=== PATIENT | male | born 1955 | race Hispanic/Latino ===

== ENCOUNTER 2016-10-27 11:43 | Inpatient (IN) | payer MEDICARE, BC ==
[2016-10-27 12:04] VITALS: BMI 23.5
--- NOTE | 2016-10-27 12:08 | ED PDOC ---
Arrival/HPI <Rell Don - Last Filed: 10/27/16 15:57> - General Historian: Patient <RUBIA REDDY - Last Filed: 10/27/16 17:25> - General Chief Complaint: Shortness Of Breath Time Seen by Provider: 10/27/16 11:47 - History of Present Illness Narrative History of Present Illness (Text): 10/27/16 12:05 Mr. Pierce is a 61 year old male with pmh significant for Liver transplant in 2002 for cirrhosis 2/2 most likely to [place] who presents to the emergency department complaining of shortness of breath. He reports his symptoms began after he had a liver biopsy last Wednesday. Since then he experiences shortness of breath with walking up stairs or with walking short distances. He denies chest pain, fever, nausea, vomiting, or change in bowels. He does indicate his shortness of breath occurs when he lays flat and now has to sleep with two pillows. He reports a dry cough and mild swelling in his lower extremities. He is prescribed lasix 10mg for which is compliant with. (RUBIA REDDY) Past Medical History - Provider Review Nursing Documentation Reviewed: Yes <Rell Don - Last Filed: 10/27/16 15:57> - Infectious Disease Hx of Infectious Diseases: None - Cardiac Hx Congestive Heart Failure: Yes Hx Hypertension: Yes - Pulmonary Hx Respiratory Disorders: No - Neurological Hx Neurological Disorder: No - HEENT Hx HEENT Disorder: No - Renal Hx Kidney Stones: Yes - Endocrine/Metabolic Hx Endocrine Disorders: No - Hematological/Oncological Hx Blood Disorders: No - Integumentary Hx Dermatological Disorder: No - Musculoskeletal/Rheumatological Hx Musculoskeletal Disorders: No Hx Falls: No - Gastrointestinal Hx Liver Failure: Yes (transplant 2002) - Psychiatric Hx Psychophysiologic Disorder: No Hx Substance Use: No - Surgical History Hx Liver Transplant: Yes (2002) Other/Comment: plastic sx after accident in the s - Anesthesia Hx Anesthesia Reactions: No Hx Malignant Hyperthermia: No <RUBIA REDDY - Last Filed: 10/27/16 17:25> Family/Social History - Physician Review Nursing Documentation Reviewed: Yes Family/Social History: No Known Family HX <Rell Don - Last Filed: 10/27/16 15:57> Smoking Status: Never Smoked Hx Alcohol Use: No Hx Substance Use: No <RUBIA REDDY - Last Filed: 10/27/16 17:25> Allergies/Home Meds <Rell Don - Last Filed: 10/27/16 15:57> <RUBIA REDDY - Last Filed: 10/27/16 17:25> Allergies/Adverse Reactions: Allergies milk Adverse Reaction (Unknown, Verified 10/27/16 12:16) VOMITING Home Medications: Home Meds Medication Instructions Recorded Confirmed Ferrous Sulfate 65 mg PO DAILY 07/04/15 10/27/16 Magnesium Oxide [Magnesium] 400 mg PO DAILY 07/04/15 10/27/16 Folic Acid 1 mg PO DAILY 07/15/15 10/27/16 Famotidine [Heartburn Prevention] 20 mg PO BID 05/27/16 10/27/16 Mycophenolate Mofetil [Cellcept] 1,250 mg PO BID 05/27/16 10/27/16 Carvedilol [Coreg] 12.5 mg PO BID 09/17/16 10/27/16 Furosemide [Lasix] 20 mg PO DAILY 09/17/16 10/27/16 amLODIPine [Norvasc] 5 mg PO BID 09/17/16 10/27/16 Cyclosporine, Modified [Neoral] 25 mg PO BID 10/27/16 10/27/16 Sodium Bicarbonate Tab 650 mg PO TID 10/27/16 10/27/16 Review of Systems - Physician Review All systems were reviewed & negative as marked: Yes - Review of Systems Constitutional: absent: Fatigue, Fevers Respiratory: SOB, Cough (dry) Cardiovascular: absent: Chest Pain, Palpitations Gastrointestinal: absent: Abdominal Pain, Stool Changes <RUBIA REDDY - Last Filed: 10/27/16 17:25> Physical Exam - Systems Exam Skin: Present: Warm, Dry, Normal Color. No: Rashes <Rell Don - Last Filed: 10/27/16 15:57> Vital Signs Reviewed: Yes Temperature: Afebrile Blood Pressure: Normal Pulse: Regular Respiratory Rate: Normal Appearance: Positive for: Well-Appearing Pain Distress: None Mental Status: Positive for: Alert and Oriented X 3 - Systems Exam Head: Present: Atraumatic, Normocephalic Pupils: Present: PERRL Extroacular Muscles: Present: EOMI Conjunctiva: Present: Normal Respiratory/Chest: Present: Clear to Auscultation, Good Air Exchange. No: Respiratory Distress, Accessory Muscle Use Cardiovascular: Present: Regular Rate and Rhythm, Normal S1, S2. No: Murmurs Abdomen: Present: Normal Bowel Sounds. No: Tenderness, Distention, Peritoneal Signs Upper Extremity: Present: Normal Inspection. No: Cyanosis, Edema Lower Extremity: Present: Edema (+1 bilateral mid tibia ), NORMAL PULSES, Normal ROM Neurological: Present: GCS=15, CN II-XII Intact, Speech Normal Psychiatric: Present: Alert, Oriented x 3, Normal Insight, Normal Concentration <RUBIA REDDY - Last Filed: 10/27/16 17:25> Vital Signs Pulse Resp BP Pulse Ox 10/27/16 13:43 137/71 10/27/16 12:12 56 L 16 135/75 95 Medical Decision Making - Lab Interpretations I have reviewed the lab results: Yes - RAD Interpretation [employer] Shipper: Radiologist <Rell Don - Last Filed: 10/27/16 15:57> - Lab Interpretations I have reviewed the lab results: Yes - RAD Interpretation [employer] Shipper: Radiologist - EKG Interpretation Interpreted by ED Physician: Yes Type: 12 lead EKG <RUBIA REDDY - Last Filed: 10/27/16 17:25> ED Course and Treatment: 10/27/16 12:13 Seen and examined with the resident. Our history and physical exam reveals a gentleman status post liver transplant in 2002 complaining of a several day history of shortness of breath. He has a nonproductive cough. No chest pain. No fever or chills. There is trace chronic bilateral lower extremity edema. Lung sounds are clear. 10/27/16 12:14 EKG shows normal sinus rhythm rate approximately 70 with poor R waves and inverted lateral T waves with a left bundle branch block similar to EKG of 05/2710/27/16 15:38 Elevated d-dimer and elevated creatinine, therefore a CTA was not done and rather a VQ scan was ordered. VQ scan is read by the radiologist shows low probability for pulmonary embolus. Discussed with Dr. Elliott who will admit to a telemetry bed. (Rell Don) 10/27/16 12:27 Impression: Mr. Pierce is a 61 year old male with pmh significant for Liver transplant in 2002 who complains of shortness of breath for the past five days. Differential Diagnosis included but are not limited to: - congestive hear failure - fluid accumulation on lungs - pulmonary embolus - ACS Plan: - CBC, CMP, BNP, D-Dimer. PT, PTT, Troponin - Chest x-ray, V/Q scan - Reassess and disposition Progress Notes: 10/27/16 12:33 Chest x ray shows signs of cardiomegaly, bilateral infiltrates and effusions present 10/27/16 15:44 Elevated D-Dimer with V/Q perfusion scan with report indicating low probability for PE (RUBIA REDDY) - Lab Interpretations Lab Results: 10/27/16 12:50 10/27/16 12:50 Lab Results 10/27/16 12:50: WBC 4.1 L, RBC 3.49 L, Hgb 10.8 L, Hct 31.5 L, MCV 90.3, MCH 30.9, MCHC 34.3, RDW 14.4, Plt Count 160, MPV 8.5, Gran % 52.4, Lymph % (Auto) 32.4, Real % (Auto) 11.8 H, Eos % (Auto) 2.9, Baso % (Auto) 0.5, Gran # 2.14, Lymph # 1.3, Real # 0.5, Eos # 0.1, Baso # 0.02 10/27/16 12:50: Sodium 141, Potassium 4.9, Chloride 108 H, Carbon Dioxide 20 L, Anion Gap 18, BUN 30 H, Creatinine 2.3 H, Est GFR ( Amer) 35, Est GFR ( Non-Af Amer) 29, Random Glucose 90, Calcium 9.6, Total Bilirubin 2.2 H, AST 54, ALT 32, Alkaline Phosphatase 764 H, Troponin I 0.02 D, NT-Pro-B Natriuret Pep 2870 H, Total Protein 7.8, Albumin 4.2, Globulin 3.6, Albumin/Globulin Ratio 1.2 10/27/16 12:50: PT 11.9 H, INR 1.10 H, APTT 32.0 H, D-Dimer, Quantitative 3.43 H - RAD Interpretation Radiology Orders: 10/27/16 12:08 CHEST PORTABLE [RAD] Stat 10/27/16 13:23 LUNG PERF & VENT SCAN [NM] Stat - Medication Orders Current Medication Orders: Discontinued Medications Furosemide (Lasix) 40 mg IVP ONCE ONE Stop: 10/27/16 13:25 Last Admin: 10/27/16 13:43 Dose: 40 mg - Scribe Statement The provider has reviewed the documentation as recorded by the Scribe <Rell Don - Last Filed: 10/27/16 15:57> - PA / CLASS B DRIVER / Resident Statement / has reviewed & agrees with the documentation as recorded. / has examined the patient and agrees with the treatment plan. <RUBIA REDDY - Last Filed: 10/27/16 17:25> - Scribe Statement 10/27/2016 Krista Nova Provider Scribe Attestation: All medical record entries made by the Scribe were at my direction and personally dictated by me. I have reviewed the chart and agree that the record accurately reflects my personal performance of the history, physical exam, medical decision making, and the department course for this patient. I have also personally directed, reviewed, and agree with the discharge instructions and disposition. (Rell Don) Disposition/Present on Arrival - Present on Arrival Any Indicators Present on Arrival: No History of DVT/PE: No History of Uncontrolled Diabetes: No Urinary Catheter: No History of Decub. Ulcer: No - Disposition Have Diagnosis and Disposition been Completed?: Yes Disposition Time: 15:41 Patient Plan: Admission, Telemetry <Rell Don - Last Filed: 10/27/16 15:57> - Present on Arrival Any Indicators Present on Arrival: No History of DVT/PE: No History of Uncontrolled Diabetes: No Urinary Catheter: No History Surgical Site Infection Following: None - Disposition Have Diagnosis and Disposition been Completed?: Yes Patient Plan: Admission, Telemetry <RUBIA REDDY - Last Filed: 10/27/16 17:25> - Disposition Diagnosis: CHF (congestive heart failure), Dyspnea, Renal failure Disposition: HOSPITALIZED Condition: GOOD
--- NOTE | 2016-10-27 12:52 | RAD ---
HISTORY: short of breath COMPARISON: 05/27/2016 FINDINGS: LUNGS: Bilateral infiltrates and effusions are seen. The upper lobes are clear PLEURA: No significant pleural effusion identified, no pneumothorax apparent. CARDIOVASCULAR: Moderate cardiomegaly OSSEOUS STRUCTURES: No significant abnormalities. VISUALIZED UPPER ABDOMEN: Normal. OTHER FINDINGS: None. IMPRESSION: Bilateral infiltrates and effusions. The pattern is most consistent with CHF
[2016-10-27 12:56] LABS: BASO # 0.02 K/mm3 (0.0-2.0); BASO % 0.5 % (0.0-3.0); EOS # 0.1 (0.0-0.7); EOS % 2.9 % (1.5-5.0); GRAN # 2.14 (1.4-6.5); GRAN % 52.4 % (50.0-68.0); HEMOGLOBIN 10.8 gm/dL (14.0-18.0); LYMPH # 1.3 (1.2-3.4); LYMPH % 32.4 % (22.0-35.0); MEAN CELL VOLUME 90.3 fL (80.0-105.0); MEAN CORPUSCULAR HEMOGLOBIN 30.9 pg (25.0-35.0); MEAN CORPUSCULAR HGB CONC 34.3 g/dl (31.0-37.0); MEAN PLATELET VOLUME 8.5 fl (7.0-11.0); MONO # 0.5 (0.1-0.6); MONO % 11.8 % (1.0-6.0); PLATELET COUNT 160 10^3/uL (120.0-450.0); RBC 3.49 10^6/uL (3.5-6.1); RED CELL DISTRIBUTION WIDTH 14.4 % (11.5-14.5); WHITE BLOOD COUNT 4.1 10^3/ul (4.5-11.0)
[2016-10-27 13:04] LABS: ALB/GLOB RATIO 1.2 (1.1-1.8); ALBUMIN 4.2 g/dL (3.0-4.8); CALCIUM 9.6 mg/dL (8.4-10.5)
[2016-10-27 13:12] LABS: INR 1.1 (0.93-1.08); PROTHROMBIN TIME 11.9 Seconds (9.9-11.8)
[2016-10-27 13:13] LABS: D DIMER 3.43 mg/L FEU (0-0.50)
[2016-10-27 13:16] LABS: TROPONIN I 0.02 ng/mL
--- NOTE | 2016-10-27 15:34 | NM ---
COMPARISON: Chest radiograph 10/27/2016 12:25 p.m.. TECHNIQUE: mCi technetium 99-m Xe-133 Gas. mCI technetium 99-m MAA administered intravenously. FINDINGS: VENTILATION COMPONENT: Somewhat diminished activity at the left and right lungs on the basis of cardiomegaly and bilateral pleural effusions based on chest radiograph 10/27/2016. PERFUSION COMPONENT: Normal. IMPRESSION: Lowprobability ventilation perfusion scan for pulmonary embolism.
--- NOTE | 2016-10-27 19:04 | CARD ---
APPROVED REPORT EKG Measurement Heart [id number] <Conclusion> Sinus rhythm with occasional premature ventricular complexes and fusion complexes Anteroseptal infarct, age undetermined T wave abnormality, consider lateral ischemia Abnormal ECG
[2016-10-28 06:04] LABS: HEMOGLOBIN 9.8 gm/dL (14.0-18.0); MEAN CELL VOLUME 89.9 fL (80.0-105.0); MEAN CORPUSCULAR HEMOGLOBIN 30.1 pg (25.0-35.0); MEAN CORPUSCULAR HGB CONC 33.4 g/dl (31.0-37.0); MEAN PLATELET VOLUME 8.8 fl (7.0-11.0); RBC 3.26 10^6/uL (3.5-6.1); RED CELL DISTRIBUTION WIDTH 14.4 % (11.5-14.5); WHITE BLOOD COUNT 4.4 10^3/ul (4.5-11.0)
[2016-10-28 06:24] LABS: ALB/GLOB RATIO 1.1 (1.1-1.8); ALBUMIN 3.4 g/dL (3.0-4.8); CALCIUM 8.8 mg/dL (8.4-10.5)
--- NOTE | 2016-10-28 09:10 | HP ---
HISTORY OF PRESENT ILLNESS: I was called to the emergency room to see Earnest. He was supposed to have office visit with me, but we sent him to the emergency room. He was feeling shortness of breath after walking about 20 steps. This is kind of new for him. He reports the symptoms began after he had a liver biopsy last Wednesday. He is having shortness of breath when he walked up-stairs for short distances. No chest pain. No nausea, vomiting, or change in bowel. It also happens when he is lying flat and he has two-pillow orthopnea right now. He has got a cough, swelling in his lower extremities. He has been on Lasix and he has been compliant. PAST MEDICAL HISTORY: He has a past medical history, which is liver transplant in 2002 for cirrhosis. He also has congestive heart failure, hypertension, kidney stones. PAST SURGICAL HISTORY: He had a transplant in 2002 of his liver, plastic surgery after an accident in the . SOCIAL HISTORY: He never smoked. No alcohol and no drugs. ALLERGIES: HE HAS A MILK ADVERSE REACTION, SOME VOMITING. MEDICATIONS: He is on iron, magnesium, folic acid, famotidine, CellCept, Coreg, Lasix, Norvasc, Neural, sodium bicarbonate tablet. REVIEW OF SYSTEMS: No acute vision or hearing changes. He is little bit fatigue. No fevers. He has shortness of breath with a dry cough. No chest pain or palpitations. No abdominal pain, no nausea, vomiting, constipation, or diarrhea. No extremity pain. There is swelling of his lower extremities in his ankles. No headache, dizziness, numbness, or tingling. He just not his usual self. He feels out of sorts. PHYSICAL EXAMINATION: Vital signs: He has a 99.8 temperature, 56 pulse, 16 respiratory rate, 137/71 blood pressure, 95% O2 sat on room air. HEENT: His head is atraumatic, normocephalic. He is little bit distressed, worried, alert and oriented x3. Extraocular muscles are intact. Pupils are equal and reactive to light and accommodation. Throat is moist. NECK: Supple. HEART: Regular rate with a normal S1 and S2. LUNGS: Have decreased breath sounds, clear to auscultation. No wheezes, no rhonchi, and no rales. ABDOMEN: Soft. Positive bowel sounds. EXTREMITIES: There is +1 pitting edema into the ankles. NEUROLOGIC: GCS is 15. Cranial nerves II through XII grossly intact. Alert and oriented x3. Speech is normal. Normal concentration. Little bit distressed of being short of breath since the biopsy. LABORATORY DATA: He had multiple tests in the emergency room. He had 141 sodium, potassium 4.9, BUN 30, creatinine 2.3, which is up for him. GFR is 29. Sugar is 90. Calcium is 9.6, total bilirubin is 2.2. AST is 54, ALT is 32, alkaline phosphatase is 764, troponin 1 at 0.02. BNP is very high at 2870. Total protein 7.8, albumin is 4.2, globulin 3.6. INR is 1.1. D-dimer is 3.43, ends up getting a lung scan. His WBCs are 4.1, hemoglobin 10.8, hematocrit 31.5, platelets are 160. He had a lung scan, which is low probability for pulmonary embolism. He did have a chest x-ray though, which shows bilateral infiltrate and effusions, grossly consistent with CHF. IMPRESSION AND PLAN: He is here with bilateral infiltrates, congestive heart failure, renal insufficiency versus acute kidney injury. He will be on IV Lasix, Rocephin, Zithromax. He will have a kidney consult, cardiac consult, and pulmonary consult. We will check his labs tomorrow. Giovanny Elliott DO
[2016-10-28] MEDS: Magnesium Oxide 400 mg Tab UD PO SCH (09:30)
[2016-10-28] MEDS: cefTRIAXone 1 gm 1 GM/100 ML BAG IVPB SCH (09:30)
[2016-10-28] MEDS: NEORAL 25 MG PO SCH ×2 (10:02→18:43)
[2016-10-28] MEDS: Azithromycin 500MG/NS 250ml 500 MG/250 ML BAG IVPB SCH (11:20)
--- NOTE | 2016-10-28 13:26 | PN ---
DATE: SUBJECTIVE: I saw Kelechi this morning. He is little bit short of breath. He was looking for some oxygen this morning. He needs to get his IV antibiotics and his IV Lasix running. He is little bit uncomfortable this morning. PHYSICAL EXAMINATION VITAL SIGNS: 98.7 temp, 79 pulse, 166/85 blood pressure, 18 respiratory rate and 97% last night on room air but this morning feels short of breath. I will put him on oxygen 2 L nasal canula. He also needs to start the IV antibiotics and IV Lasix. HEENT: Head is atraumatic and normocephalic. The throat is dry. NECK: Supple. HEART: Regular rate. LUNGS: Decreased breath sounds bilaterally, but clear. ABDOMEN: Soft, nontender, positive bowel sounds. EXTREMITIES: Extremities have trace edema. MEDICATIONS: He is going to be on Cellcept, Coreg, Theosol, folic acid, Lasix 40 IV daily, magnesium oxide, Norvasc, Pepcid, Rocephin, cyclosporine, sodium bicarbonate and IV Zithromax. LABORATORY DATA: He has a 139 sodium, potassium 4.7, BUN is 29, creatinine 2.1 a bit better. GFR 32, glucose is 80, calcium is 8.1, total bilirubin is 1.5 better. AST is 46, ALT is 31. Alkaline phosphatase is 592 better. His BMP, total protein 6.5. 4.4 white count, 9.8 hemoglobin, 29.3 hematocrit with 144,000 platelets. PLAN: There are consults for renal and pulmonary for evaluation. Give him oxygen, IV Lasix and IV antibiotics. We will check his labs tomorrow. Hopefully, he will start to improve. The patient was having a rough morning with shortness of breath. Continue with aggressive treatment and care and he is here with renal efficiency, acute kidney injury, CHF, bilateral infiltrates status post a week ago liver biopsy. Giovanny Elliott DO [facility]
--- NOTE | 2016-10-28 15:04 | RAD ---
PROCEDURE: Chest four views HISTORY: r/o effusion, pneumonia and atelectasis COMPARISON: 10/27/2016 TECHNIQUE: PA, lateral and bilateral decubitus films were obtained FINDINGS: The decubitus film show a layering of moderate to large bilateral pleural effusions. There is moderate cardiomegaly IMPRESSION: Layering of moderate to large bilateral pleural effusions
--- NOTE | 2016-10-28 15:18 | CP.PCM.CON ---
History of Present Illness - History of Present Illness History of Present Illness: Initial Nephrology Consultation: Assessment: Stable Acute Kidney Injury (N17.9) likely due to venous congestion and cardio-renal syndrome due to acute on chronic sys CHF Bilateral pleural effusions with possible pneumonia Chronic Kidney Disease (N18.3) Stage 3 with ?mg proteinuria (R80.9) may be due to chronic usage of cyclosporine Non-anion gap metabolic acidosis Anemia (D64.9), HTN (I12.9) hx of liver transplantation in 2002 Plan No acute need for renal replacement therapy at this time. Hypertension control with meds as ordered. Patient not on ACEI/ARB due to MARLENY Monitor Input/Output, daily weights and renal function with basic metabolic panel Agree with IV lasix continue with sodium Bicarb supplements Check urine analysis, spot protein/creatinine and albumin/creatinine ratio, renal sonogram. Urine for Na, K, Cl. Check for 25-OH vitamin D, iPTH, phosphorus level Check anemia work up with TSAT/Ferritin/B12/folate, serum protein electrophoresis with immunofixation Dose meds/antibiotics for reduced GFR. Avoid fleets enema/magnesium based laxatives. Avoid nephrotoxins/NSAIDs/ iodinated contrast (unless needed emergently) Glycemic control Further work up/management for CHF as per primary team. Immunosuppressive meds for liver Tx as per GI. Thanks for allowing me to participate in care of your patient. Will follow patient with you. Please call if any Qs Dr Bhavesh Church Office: [phone] Chief Complaint; Shortness of breath Reason for consult: elevated creatinine and MARLENY HPI: Pt is a 61 y/o M with hx of liver transplant in 2002 and subsequent hx of HTN, CKD 3 (baseline cr 1.5-1.7), chronic systolic CHF admitted with CHF exacerbation and renal consult for elevated creatinine 2.3 mg/dL. Denies chest pain, palpitation, but has shortness of breath, leg swelling Denies blood or bubbles in urine or any other urinary complaints Denies OTC/herbal meds or NSAIDs No recent iodinated contrast exposure. No obvious episodes of low BP. He has been having progressive exertional shortness of breath for last few days. Found to have b/l moderate to large pleural effusions. his liver Tx was managed with cyclosporine but also added cellcept since mar 2016 when noted to have high alkaline phos. he had recent liver biopsy too. ROS: overall feels sick and not well. Constitutional Symptoms: Denies fever. No chills. had lost 15 lbs over last few weeks Eyes: denies change in vision, denies watery eyes, denies double vision Ears/Nose/Mouth/Throat: Denies Abnormal Taste. No Bad breath no Bad Taste. Cardiovascular: No chest pain. There is c/o shortness of breath. No palpitations. Pulmonary: c/o shortness of breath and dry cough. Gastrointestinal: denies abdominal pain No nausea. No vomiting. Denies change in bowel habits. Denies Bleeding Genitourinary: No Change in force of strain when urinating. No increase in urinary frequency. No pain while urinating. Denies blood in urine. Neurological: Denies headaches. No dizziness. Denies loss of balance. Denies weakness, denies tingling/numbness Dermatological: No Rash or Bruising or ulcers. Psychiatric: Denies Anxiety. No depression. Denies hallucinations. Rheumatological: No joint pain. Denies Joint swelling but has leg swelling. Endocrine: Denies tiredness/Fatigue denies Heat/Cold Intolerance. All other negative Physical Examination: General Appearance: Comfortable, in no acute respiratory distress, co-operative . Vitals reviewed and noted as below Head; Atraumatic, normocephalic ENT: no ulcers no thrush. Tongue is midline. Oropharynx: no rash or ulcers. EYES: Pupils are equal, round and reactive to light accommodation. Eye muscles and extraocular movement intact. Sclera is icteric. Neck; supple no lymphadenopathy, no thyromegaly or bruit Lungs: somewhat increased respiratory rate/effort. Breath sounds bilateral decreased at bases with bronchial breaths Heart: Normal rate. s1s2 normal. No rub or gallop. Extremities: 1-2+ edema. No varicose veins Neurological: Patient is alert, awake and oriented to person, place and time. No focal deficit. Strength bilateral appropriate and equal Skin: Warm and dry. Normal turgor. No rash. Palpitation: Normal elasticity for age Abdomen: Abdomen is soft. Bowel sounds +. There is no abdominal tenderness, no guarding/rigidity but appear to have hepatomegaly Psych: normal insight and normal affect/mood MSK: no joint tenderness or swelling. Digits and nails normal, no deformity : kidney or bladder not palpable Labs/imaging/EKG reviewed. Past medical history, past surgical history, family history, social history, allergy reviewed and noted as below Family hx: no hx of CKD. Rest non-contributory WORK up: CXR; b/l moderate to large pleural effusions Past Patient History - Infectious Disease Hx of Infectious Diseases: None - Past Social History Smoking Status: Never Smoked - CARDIAC Hx Congestive Heart Failure: Yes Hx Hypertension: Yes - PULMONARY Hx Respiratory Disorders: No - NEUROLOGICAL Hx Neurological Disorder: No - HEENT Hx HEENT Problems: No - RENAL Hx Kidney Stones: Yes - ENDOCRINE/METABOLIC Hx Endocrine Disorders: No - HEMATOLOGICAL/ONCOLOGICAL Hx Cirrhosis: Yes - INTEGUMENTARY Hx Dermatological Problems: No - MUSCULOSKELETAL/RHEUMATOLOGICAL Hx Falls: No - GASTROINTESTINAL Hx Liver Failure: Yes (transplant 2002) - PSYCHIATRIC Hx Psychophysiologic Disorder: No Hx Substance Use: No - SURGICAL HISTORY Hx Liver Transplant: Yes (2002) - ANESTHESIA Hx Anesthesia Reactions: No Hx Malignant Hyperthermia: No Meds Allergies/Adverse Reactions: Allergies Allergy/AdvReac Type Severity Reaction Status Date / Time milk AdvReac Unknown VOMITING Verified 10/27/16 18:22 - Medications Medications: Current Medications Amlodipine Besylate (Norvasc) 5 mg PO BID [facility] Last Admin: 10/28/16 09:30 Dose: 5 mg Carvedilol (Coreg) 12.5 mg PO BID [facility] Last Admin: 10/28/16 09:29 Dose: 12.5 mg Famotidine (Pepcid) 20 mg PO BID [facility] Last Admin: 10/28/16 09:29 Dose: 20 mg Ferrous Sulfate (Feosol) 324 mg PO DAILY [facility] Last Admin: 10/28/16 09:30 Dose: 324 mg Folic Acid (Folic Acid) 1 mg PO DAILY [facility] Last Admin: 10/28/16 09:30 Dose: 1 mg Furosemide (Lasix) 40 mg IVP DAILY [facility] Last Admin: 10/28/16 09:30 Dose: 40 mg Home Med (Home Med) 0 unit PO BID [facility] Last Admin: 10/28/16 10:02 Dose: 1 unit Azithromycin (Zithromax 500mg In Ns) 500 mg in 250 mls @ 167 mls/hr IVPB DAILY [facility] PRN Reason: Protocol Last Admin: 10/28/16 11:20 Dose: 167 mls/hr Ceftriaxone Sodium (Rocephin 1 Gram Ivpb) 1 gm in 100 mls @ 100 mls/hr IVPB DAILY [facility] PRN Reason: Protocol Last Admin: 10/28/16 09:30 Dose: 100 mls/hr Magnesium Oxide (Mag-Ox) 400 mg PO DAILY [facility] Last Admin: 10/28/16 09:30 Dose: 400 mg Mycophenolate Mofetil (Cellcept Cap) 1,250 mg PO BID [facility] Last Admin: 10/28/16 09:29 Dose: 1,250 mg Sodium Bicarbonate (Sodium Bicarbonate Tab) 650 mg PO TID [facility] Last Admin: 10/28/16 09:30 Dose: 650 mg Results - Vital Signs Recent Vital Signs: Last Vital Signs Temp 98.3 F 10/28/16 12:00 Pulse 81 10/28/16 12:00 Resp 20 10/28/16 12:00 BP 137/87 10/28/16 12:00 Pulse Ox 97 10/27/16 18:46 - Labs Result Diagrams: 10/28/16 05:20 10/28/16 05:20 Labs: Laboratory Results - last 24 hr 10/28/16 10/28/16 10/28/16 05:20 05:20 11:50 WBC 4.4 L RBC 3.26 L Hgb 9.8 L Hct 29.3 L MCV 89.9 MCH 30.1 MCHC 33.4 RDW 14.4 Plt Count 144 MPV 8.8 Sodium 139 Potassium 4.7 Chloride 108 Carbon Dioxide 20 L Anion Gap 16 BUN 29 H Creatinine 2.1 H Est GFR ( Amer) 39 Est GFR (Non-Af Amer) 32 Random Glucose 80 Calcium 8.8 Total Bilirubin 1.5 H AST 46 ALT 31 Alkaline Phosphatase 592 H Total Protein 6.5 Albumin 3.4 Globulin 3.1 Albumin/Globulin Ratio 1.1 Ur Random Creatinine 30 Ur Random Sodium 129 Ur Random Potassium 11.1
[2016-10-28 20:23] VITALS: RESP 20
--- NOTE | 2016-10-28 20:54 | US ---
EXAM: US Retroperitoneal Limited, Renal CLINICAL HISTORY: 61 years old, male; Pain; Abdominal pain; Additional info: Jeb TECHNIQUE: Real-time ultrasound of the retroperitoneum (limited) with image documentation. COMPARISON: No relevant prior studies available. FINDINGS: Right kidney: Normal echogenicity. No calculi. No hydronephrosis. Left kidney: Normal echogenicity. No calculi. No hydronephrosis. IMPRESSION: 1.No acute findings. 2.Non-acute findings are described above.
--- NOTE | 2016-10-28 21:38 | CON ---
PULMONARY CONSULTATION DATE: 10/28/2016 HISTORY OF PRESENT ILLNESS: The patient is a 61-year-old gentleman, who presented to the emergency room with complaints of progressive dyspnea. He had difficulty even walking on level ground off late. He was told that he had a similar situation to this years back. He had a liver transplant in 2002 for cirrhosis. The patient had a liver biopsy last Wednesday, following that procedure he had some shortness of breath, was having difficulty walking upstairs or walking short distances, no chest pain, no pleurisy. Evidence of inability to sleep without 2 pillows consistent with pulmonary vascular congestion. The chart has been reviewed. PAST MEDICAL HISTORY: Includes cirrhosis, pleural effusion, congestive heart failure, hypertension. FAMILY HISTORY: Noncontributory. SOCIAL HISTORY: The patient is a nonsmoker, no occupational exposure. Travel history unknown. REVIEW OF SYSTEMS: Other than that described above, the patient has had shortness of breath occasionally due to pulmonary vascular congestion secondary to cirrhosis. He is on immunosuppressive therapy for his liver transplant. There is no evidence of rejection in the past. He has a history of kidney stones. All other systems negative. MEDICATIONS: Home medications include iron, magnesium, folic acid, famotidine. He takes CellCept, Coreg, Lasix, Norvasc, cyclosporine, and sodium bicarbonate. ALLERGIES: HE HAS AN ALLERGY TO MILK CAUSING VOMITING. NO OTHER ALLERGIES ARE NOTED. PHYSICAL EXAMINATION GENERAL: He is resting comfortably, in no acute distress. VITAL SIGNS: Earlier this evening showed a pulse of 60, respiratory rate of 16, blood pressure 135/75, O2 sat this morning was 96% on supplemental oxygen, although at bedside he was not wearing it this morning and seemed perfectly comfortable, having completed breakfast. HEENT: Normocephalic, atraumatic. Pupils PERRLA, EOM is full. Conjunctivae pink. CARDIOPULMONARY: Regular rhythm, S1 and S2 without murmur,gallop or rub. LUNGS: Was essentially clear to percussion and auscultation with good air moment, no air trapping. No wheezing. There were some decreased breath sounds at both bases. ABDOMEN: Soft. Bowel sounds are normoactive without mass, guarding, rebound, or organomegaly. EXTREMITIES: No Homans sign. Revealed no clubbing. NEUROLOGIC: No focal findings. Motor, sensory, and coordination normal. No additional problems noted. SKIN: Dry; intact LABORATORY DATA: One chest x-ray of the poorest quality imaginable, poorly under penetrated, appearance of possible lower lobe infiltrates and/or atelectasis and/or effusion. It must be repeated to get very inside into the actual pathology. His white count this morning was 4,400, hemoglobin 9.8, hematocrit 29.3. Coagulation profile was elevated with a D-dimer of 3.3, PT 11.9, INR 1.10. Chemistry showed sodium of 139, potassium 4.7, chloride 108, carbon dioxide 20, BUN 29, creatinine 2.1, total bilirubin 1.5, alk phos of 92. EKG shows sinus rhythm, nonspecific ST-T wave changes, poor axis progression with several extrasystoles. IMPRESSION: 1. Pulmonary vascular congestion. 2. Pleural effusion. 3. Bilateral pneumonitis. 4. On immunosuppressive therapy. 5. Abnormal x-ray consistent with either: a. Atelectasis. b. Cirrhosis. c. Status post liver transplant. Please note that there is no evidence of deep vein thrombosis or pulmonary embolism. The bilateral venous Doppler's were negative. The ventilation perfusion scan was negative as well. PLAN: Must repeat the chest x-ray PA and lateral with bilateral decubitus views to make sure that we can delineate the abnormality seen on chest whether this represents effusions, atelectasis, or pneumonitis, needs to be identified. In the meantime, however, the patient was started on antibiotics and is being evaluated by nephrology and cardiology. We will follow closely with you and decide on the need for further intervention based on these findings. Musa Brooks MD [facility]
--- NOTE | 2016-10-29 01:22 | CON ---
DATE: 10/28/2016 HISTORY OF PRESENT ILLNESS: The patient is 61-year-old male, who presents with dyspnea. His dyspnea has began after he underwent a liver biopsy recently. PAST MEDICAL HISTORY: Includes a history of liver transplant. He suffers from hypertension with the mild cardiomyopathy documented in the past. A stresses on last month revealed no ischemic changes. The patient has a history of mild pulmonary hypertension documented on previous echocardiogram. SOCIAL HISTORY: Denies smoking now. REVIEW OF SYSTEMS: A 14-point review of systems, his symptoms are dominated by dyspnea and exertional dyspnea. Negative chest pain. Negative edema in the lower extremities. PHYSICAL EXAMINATION: VITAL SIGNS: Blood pressure was 156/87 which is now 137/87, heart is in the 80s. NECK: Negative JVD. LUNGS: Bilateral rales at the bases. HEART: Reveals S1, S2. EXTREMITIES: Without edema. DIAGNOSTIC DATA: EKG shows normal sinus rhythm with non specific ST-T changes. LABORATORY DATA: BUN and creatinine is 29/2.1. His troponins are negative. ProBNP is 2870. Hemoglobin is 9.8. IMPRESSION: 1. Acute systolic congestive heart failure. 2. Mild dilated cardiomyopathy. 3. Fluid overload. 4. History of liver transplantation. 5. Renal insufficiency. 6. History of hypertension. 7. Anemia. 8. Dyspnea. PLAN: Given these findings, we will increase his Lasix to 40 b.i.d. We will give an extra dose today. Jose Martin Mccormack MD
[2016-10-29 05:39] VITALS: O2SAT 94
[2016-10-29 06:09] LABS: ARTERIAL BLOOD GAS HCO3 19.8 mmol/L (21-28); ARTERIAL BLOOD GAS HEMOGLOBIN 12.4 g/dL (11.7-17.4); ARTERIAL BLOOD GAS O2 SAT 88.4 % (95-98); ARTERIAL BLOOD GAS PCO2 35 mm/Hg (35-45); ARTERIAL BLOOD GAS PH 7.36 (7.35-7.45); ARTERIAL BLOOD GAS TCO2 20.9 mmol.L (22-28)
[2016-10-29 07:13] LABS: ALB/GLOB RATIO 1.2 (1.1-1.8); ALBUMIN 3.9 g/dL (3.0-4.8); ALT/SGPT 31 U/L (7-56); AST/SGOT 51 U/L (15-59); BLOOD UREA NITROGEN 32 mg/dL (7-21); CALCIUM 9.1 mg/dL (8.4-10.5); GFR AFRICAN-AMERICAN 42; GFR NON-AFRICAN AMERICAN 34
[2016-10-29 07:15] LABS: % IRON SATURATION 33 % (20-55); IRON 56 ug/dL (45-180); TOTAL IRON BINDING CAPACITY 169 ug/dL (261-462)
[2016-10-29 07:26] LABS: HEMOGLOBIN 10.6 gm/dL (14.0-18.0); MEAN CELL VOLUME 91.3 fL (80.0-105.0); MEAN CORPUSCULAR HEMOGLOBIN 30.8 pg (25.0-35.0); MEAN CORPUSCULAR HGB CONC 33.8 g/dl (31.0-37.0); MEAN PLATELET VOLUME 9.4 fl (7.0-11.0); RBC 3.44 10^6/uL (3.5-6.1); RED CELL DISTRIBUTION WIDTH 14.2 % (11.5-14.5)
[2016-10-29] MEDS: Magnesium Oxide 400 mg Tab UD PO SCH (10:14)
[2016-10-29] MEDS: cefTRIAXone 1 gm 1 GM/100 ML BAG IVPB SCH (10:15)
[2016-10-29] MEDS: Azithromycin 500MG/NS 250ml 500 MG/250 ML BAG IVPB SCH (10:16)
--- NOTE | 2016-10-29 11:01 | PN ---
SUBJECTIVE: I saw Kelechi resting in bed. He has got oxygen on. He slept better. He is breathing better. He is having issues with breathing, still shortness of breath and still needs the oxygen. He is urinating more with IV Lasix and he feels less swollen. His is definitely overloaded as per cardiology and acute systolic congestive heart failure. PHYSICAL EXAMINATION: VITAL SIGNS: 98.1 temperature, 76 pulse, 143/85 blood pressure, 20 respiratory rate, and 98% saturation on room air. HEENT: Head is atraumatic and normocephalic. Throat is moist. NECK: Supple. HEART: Regular rate. LUNGS: Decreased breath sounds but clear. ABDOMEN: Soft and nontender, positive bowel sounds. EXTREMITIES: Have no edema; there was edema yesterday. MEDICATIONS: His currently on; 1. CellCept. 2. Coreg. 3. Iron. 4. Folic acid. 5. Lasix. 6. Magnesium oxide. 7. Norvasc. 8. Pepcid. 9. Rocephin. 10. Bicarbonate. 11. Zithromax. LABORATORY DATA: He has a 5 white count, 10.6 hemoglobin. 31.4 hematocrit, 174 platelets. He has 1.2 sodium, potassium 4.6, BUN 32, creatinine is 2, is getting better. GFR is up to 34, sugars 83, calcium 1.1, iron is 56, total bilirubin 1.6, AST is 51, and ALT is 31, alkaline phosphatase 712, and total protein is 7.2. PLAN: He is being seen by Renal, Pulmonary, and Cardiology. We will check his labs tomorrow. I want to get him out of bed to chair. If he does well by tomorrow, may be could be discharged tomorrow. We will continue aggressive treatment, care and diuresis, watching his kidneys and IV antibiotics for any upper respiratory or lung infection. Dr. Elliott dictating on Kelechi Soto who has had acute systolic congestive heart failure. Giovanny Elliott DO
[2016-10-29 11:46] VITALS: BP 155/94; PULSE 79; TEMP 97.7
--- NOTE | 2016-10-29 12:52 | PN ---
DATE: 10/29/2016 SUBJECTIVE: The patient's breathing is better, it is back to baseline. PHYSICAL EXAMINATION VITAL SIGNS: Blood pressure is 143/85, the heart rate is in the 70s. NECK: Negative JVP. CARDIOPULMONARY: S1 and S2. LUNGS: Without rales. EXTREMITIES: Without edema. LABORATORY DATA: Potassium is 4.6, BUN and creatinine is 32 and 2.0. Hemoglobin is 10.6. IMPRESSION: 1. Resolution of congestive heart failure. 2. Renal insufficiency. 3. History of liver transplantation. 4. Status post fluid overload. 5. Anemia. PLAN: Given these findings, we will discontinue his IV Lasix and change to p.o. Lasix. The patient will ambulate today. If stable, we will discontinue telemetry. From a cardiac perspective, the patient can be discharged. Jose Martin Mccormack MD
--- NOTE | 2016-10-29 13:05 | CP.PCM.PN ---
Subjective - Date & Time of Evaluation Date of Evaluation: 10/29/16 Time of Evaluation: 13:01 - Subjective Subjective: Follow up Nephrology Consultation: Assessment: Stable Acute Kidney Injury (N17.9) likely due to venous congestion and cardio-renal syndrome due to acute on chronic sys CHF: improved Bilateral pleural effusions with possible pneumonia Chronic Kidney Disease (N18.3) Stage 3 with 790 mg proteinuria (R80.9) may be due to chronic usage of cyclosporine Non-anion gap metabolic acidosis Anemia (D64.9), HTN (I12.9) hx of liver transplantation in 2002 Plan No acute need for renal replacement therapy at this time. Hypertension control with meds as ordered. Patient not on ACEI/ARB due to MARLENY Monitor Input/Output, daily weights and renal function with basic metabolic panel consider to extend his diuresis with IV lasix in hospital for another 1-2 days to optimize his volume status better. continue with sodium Bicarb supplements Check urine analysis, Urine for Na, K, Cl. Check for 25-OH vitamin D, iPTH, phosphorus level Check anemia work up with TSAT/Ferritin/B12/folate, serum protein electrophoresis with immunofixation Dose meds/antibiotics for reduced GFR. Avoid fleets enema/magnesium based laxatives. Avoid nephrotoxins/NSAIDs/ iodinated contrast (unless needed emergently) Glycemic control Further work up/management for CHF as per primary team. Immunosuppressive meds for liver Tx as per GI. Thanks for allowing me to participate in care of your patient. Will follow patient with you. Please call if any Qs. d/w team Dr Bhavesh Church Office: [phone] ROS: feels better than yesterday but still has exertional shortness of breath. no chest pain/nausea/vomitting Physical Examination: General Appearance: Comfortable, in no acute respiratory distress, co-operative . Vitals reviewed and noted as below Lungs: somewhat increased respiratory rate/effort. Breath sounds bilateral decreased at bases with bronchial breaths Heart: Normal rate. s1s2 normal. No rub or gallop. Extremities: 1+ edema. No varicose veins Neurological: Patient is alert, awake and oriented to person, place and time. No focal deficit. Strength bilateral appropriate and equal Skin: Warm and dry. Normal turgor. No rash. Palpitation: Normal elasticity for age Abdomen: Abdomen is soft. Bowel sounds +. There is no abdominal tenderness, no guarding/rigidity but appear to have hepatomegaly Psych: normal insight and normal affect/mood MSK: no joint tenderness or swelling. Digits and nails normal, no deformity : kidney or bladder not palpable Labs/imaging/EKG reviewed. Past medical history, past surgical history, family history, social history, allergy reviewed and noted as below Family hx: no hx of CKD. Rest non-contributory WORK up: CXR; b/l moderate to large pleural effusions Objective - Vital Signs/Intake and Output Vital Signs (last 24 hours): Temp Pulse Resp BP Pulse Ox 97.7 F 79 20 155/94 H 94 L 10/29/16 11:45 10/29/16 11:45 10/29/16 11:45 10/29/16 11:45 10/29/16 05:38 - Medications Medications: Current Medications Amlodipine Besylate (Norvasc) 5 mg PO BID [facility] Last Admin: 10/29/16 10:14 Dose: 5 mg Carvedilol (Coreg) 12.5 mg PO BID [facility] Last Admin: 10/29/16 10:13 Dose: 12.5 mg Famotidine (Pepcid) 20 mg PO BID [facility] Last Admin: 10/29/16 10:14 Dose: 20 mg Ferrous Sulfate (Feosol) 324 mg PO DAILY [facility] Last Admin: 10/29/16 10:11 Dose: 324 mg Folic Acid (Folic Acid) 1 mg PO DAILY [facility] Last Admin: 10/29/16 10:12 Dose: 1 mg Furosemide (Lasix) 40 mg PO DAILY [facility] Last Admin: 10/29/16 10:12 Dose: 40 mg Home Med (Home Med) 0 unit PO BID [facility] Last Admin: 10/28/16 18:43 Dose: 1 unit Azithromycin (Zithromax 500mg In Ns) 500 mg in 250 mls @ 167 mls/hr IVPB DAILY [facility] PRN Reason: Protocol Last Admin: 10/29/16 10:16 Dose: 167 mls/hr Ceftriaxone Sodium (Rocephin 1 Gram Ivpb) 1 gm in 100 mls @ 100 mls/hr IVPB DAILY [facility] PRN Reason: Protocol Last Admin: 10/29/16 10:15 Dose: 100 mls/hr Magnesium Oxide (Mag-Ox) 400 mg PO DAILY [facility] Last Admin: 10/29/16 10:14 Dose: 400 mg Mycophenolate Mofetil (Cellcept Cap) 1,250 mg PO BID [facility] Last Admin: 10/29/16 10:10 Dose: 1,250 mg Sodium Bicarbonate (Sodium Bicarbonate Tab) 650 mg PO TID [facility] Last Admin: 10/29/16 10:15 Dose: 650 mg - Labs Labs: 10/29/16 06:38 10/29/16 06:38 PT 11.9 Seconds (9.9-11.8) H 10/27/16 12:50 INR 1.10 (0.93-1.08) H 10/27/16 12:50 APTT 32.0 Seconds (23.7-30.8) H 10/27/16 12:50
[2016-10-29 13:44] LABS: FOLATE > 20.0 ng/mL
--- NOTE | 2016-10-29 15:23 | PN ---
PULMONARY PROGRESS NOTE DATE: 10/29/2016 SUBJECTIVE: The patient was seen and examined at bedside. He states he feels a little better, less short of breath, and still using oxygen. PHYSICAL EXAMINATION: VITAL SIGNS: His temperature is 98.1, pulse is 76, respirations are 96, his pulse oximetry is 94% on room air, and blood pressure is 143/85. HEAD, EYES, EARS, NOSE, AND THROAT: Within normal limits. NECK: Supple with no jugular vein distention. CHEST: Symmetrical. HEART: S1 and S2. No S3. Regular. LUNGS: Markedly diminished breath sounds at both lung bases with some dullness at both lung bases for percussion. GASTROINTESTINAL: Soft and nontender. No organomegaly. EXTREMITIES: 1+ pedal edema. LABORATORY DATA: I have reviewed today's blood work. His arterial blood gas shows pH of 7.36, pCO2 of 35, and pO2 of 47; this may be a mixed or venous gas. WBC of 5.0 and hemoglobin of 10.6. Chest x-ray was reviewed and reveals large bilateral pleural effusions. ASSESSMENT: 1. Rule out bibasilar pneumonia. 2. Large bilateral pleural effusions. 3. Atelectasis. 4. Liver cirrhosis. 5. Status post transplant. PLAN: The patient will continue with administration of aerosol therapy as ordered. Supplemental oxygen will be administered as well. He is on Rocephin and azithromycin, which is an adequate coverage and will continue as above and follow closely. Alpesh Maki MD
== END 2016-10-29 14:31 | disposition home or self-care (01) | DRG 291 ==
LOC: ED 11:43 → ERH 15:39 → 2RNO 19:51
PROVIDERS: ADMIT Family Medicine; ATTEND Family Medicine
DX: I13.0 Hypertensive heart and chronic kidney disease with heart failure and stage 1 through stage 4 chronic kidney disease, or unspecified chronic kidney disease (principal); I50.23 Acute on chronic systolic (congestive) heart failure; J18.9 Pneumonia, unspecified organism; E87.2 Acidosis; N17.9 Acute kidney failure, unspecified; Z94.4 Liver transplant status; N18.3 Chronic kidney disease, stage 3 (moderate); I42.0 Dilated cardiomyopathy; J98.11 Atelectasis; D64.9 Anemia, unspecified

== ENCOUNTER 2016-11-09 14:23 | Inpatient (IN) | payer MEDICARE, BC ==
[2016-11-09 14:54] VITALS: BMI 21.9
[2016-11-09] MEDS ORDERED: Nitroglycerin 2% Ointment Foilpak UD TOP STA (15:20)
--- NOTE | 2016-11-09 15:32 | ED PDOC ---
Arrival/HPI - General Chief Complaint: Shortness Of Breath Time Seen by Provider: 11/09/16 14:40 Historian: Patient - History of Present Illness Narrative History of Present Illness (Text): 11/09/16 15:00 Kelechi Pierce is a 61 year old male, whose past medical history includes Liver transplant in 2002 for cirrhosis, hypertension, and diagnosed with congestive heart failure on 11/04/2016, who presents to the emergency department complaining of shortness of breath. He reports his symptoms started yesterday after light activity, but notes that he has been experiencing this since after he had a liver biopsy. Patient also states he has intermittent coughing and feels that he is losing his voice. Patient denies chest pain, headache, fever, chills, back pain, nausea, vomiting, diarrhea, abdominal pain, or other complaints. PMD: Dr. Elliott Time/Duration: 24 hours Symptom Onset: Sudden Symptom Course: Unchanged Activities at Onset: Light Modifying Factors (Text): shortness of breath is worse with light activity Associated Symptoms (Text): losing voice and intermittent coughing Past Medical History - Provider Review Nursing Documentation Reviewed: Yes - Infectious Disease Hx of Infectious Diseases: None - Cardiac Hx Congestive Heart Failure: Yes Hx Hypertension: Yes - Pulmonary Hx Respiratory Disorders: No - Neurological Hx Neurological Disorder: No - HEENT Hx HEENT Disorder: No - Renal Hx Kidney Stones: Yes - Endocrine/Metabolic Hx Endocrine Disorders: No - Hematological/Oncological Hx Cirrhosis: Yes - Integumentary Hx Dermatological Disorder: No - Musculoskeletal/Rheumatological Hx Falls: No - Gastrointestinal Hx Gastrointestinal Disorders: Yes Hx Liver Failure: Yes (transplant 2002) - Genitourinary/Gynecological Hx Genitourinary Disorders: No - Psychiatric Hx Psychophysiologic Disorder: No Hx Substance Use: No - Surgical History Hx Liver Transplant: Yes (2002) - Anesthesia Hx Anesthesia Reactions: No Hx Malignant Hyperthermia: No Family/Social History - Physician Review Nursing Documentation Reviewed: Yes Family/Social History: Unknown Family HX Smoking Status: Never Smoked Hx Alcohol Use: No Hx Substance Use: No Allergies/Home Meds Allergies/Adverse Reactions: Allergies milk Adverse Reaction (Unknown, Verified 10/27/16 18:22) VOMITING Home Medications: Home Meds Medication Instructions Recorded Confirmed Ferrous Sulfate 65 mg PO DAILY 07/04/15 11/09/16 Magnesium Oxide [Magnesium] 400 mg PO DAILY 07/04/15 11/09/16 Folic Acid 1 mg PO DAILY 07/15/15 11/09/16 Famotidine [Heartburn Prevention] 20 mg PO BID 05/27/16 11/09/16 Mycophenolate Mofetil [Cellcept] 1,250 mg PO BID 05/27/16 11/09/16 Carvedilol [Coreg] 12.5 mg PO BID 09/17/16 11/09/16 Furosemide [Lasix] 20 mg PO DAILY 09/17/16 11/09/16 amLODIPine [Norvasc] 5 mg PO BID 09/17/16 11/09/16 Cyclosporine, Modified [Neoral] 25 mg PO BID 10/27/16 11/09/16 Sodium Bicarbonate Tab 650 mg PO TID 10/27/16 11/09/16 Review of Systems - Physician Review All systems were reviewed & negative as marked: Yes - Review of Systems Constitutional: absent: Fevers ENT: Voice Changes Respiratory: SOB, Cough Cardiovascular: absent: Chest Pain Gastrointestinal: absent: Abdominal Pain Physical Exam Vital Signs Temp Pulse Resp BP Pulse Ox 11/09/16 16:56 69 18 132/75 96 11/09/16 15:51 140/79 11/09/16 15:31 75 18 134/71 96 11/09/16 14:38 98.2 F 77 22 136/77 96 Temperature: Afebrile Blood Pressure: Normal Pulse: Regular Respiratory Rate: Normal Appearance: Positive for: Well-Appearing, Non-Toxic, Comfortable Pain Distress: None Mental Status: Positive for: Alert and Oriented X 3 - Systems Exam Head: Present: Atraumatic, Normocephalic Pupils: Present: PERRL Extroacular Muscles: Present: EOMI Conjunctiva: Present: Normal Mouth: Present: Moist Mucous Membranes Neck: Present: Normal Range of Motion Respiratory/Chest: Present: Decreased Breath Sounds (bilateral ) Cardiovascular: Present: Regular Rate and Rhythm, Normal S1, S2. No: Murmurs Abdomen: Present: Normal Bowel Sounds. No: Tenderness, Distention, Peritoneal Signs Back: Present: Normal Inspection Upper Extremity: Present: Normal Inspection. No: Cyanosis, Edema Lower Extremity: Present: Normal Inspection, Edema (bilateral (+1)) Neurological: Present: GCS=15, CN II-XII Intact, Speech Normal Skin: Present: Warm, Dry, Normal Color. No: Rashes Psychiatric: Present: Alert, Oriented x 3, Normal Insight, Normal Concentration Medical Decision Making ED Course and Treatment: 11/09/16 15:00 Impression: 61 year old male with shortness of breath. Differential Diagnosis included but are not limited to: pleural effusion vs. CHF exacerbation Plan: -- EKG -- Chest X-ray -- Labs -- Lasix and Nitroglycerin -- Reassess and disposition Prior Visits: Notes and results from previous visits were reviewed. Patient was last seen in the emergency department on 10/27/2016. Progress Notes: EKG: Ordered, reviewed, and independently interpreted the EKG. Rate : 75 BPM Rhythm : NSR Interpretation : T-wave inversion on V5 and V6. Left bundle branch block. No changes from previous EKG. Comparison : 10/27/2016. 11/09/16 16:35 Chest X-ray: Creator : Db Lee MD COMPARISON:10/28/2016 FINDINGS: LUNGS: Bibasilar infiltrates and effusions are unchanged. The upper lung mccurdy are clear PLEURA: No significant pleural effusion identified, no pneumothorax apparent. CARDIOVASCULAR: Normal. OSSEOUS STRUCTURES: No significant abnormalities. VISUALIZED UPPER ABDOMEN: Normal. OTHER FINDINGS: None. IMPRESSION: Bibasilar infiltrates and effusions unchanged 11/09/16 17:37 Patient having trouble walking without getting short of breathe. Discussed case with Dr. Elliott who will place the patient on observation for CHF. - Lab Interpretations Lab Results: 11/09/16 13:35 11/09/16 13:35 Lab Results 11/09/16 13:35: Sodium 135, Potassium 4.5, Chloride 98, Carbon Dioxide 23, Anion Gap 19, BUN 56 H, Creatinine 3.3 H, Est GFR ( Amer) 23, Est GFR ( Non-Af Amer) 19, Random Glucose 98, Calcium 8.9, Total Bilirubin 1.8 H, AST 83 H , ALT 40, Alkaline Phosphatase 804 H, Lactate Dehydrogenase 624, Total Creatine Kinase 47, Troponin I < 0.01 D, NT-Pro-B Natriuret Pep 1830 H, Total Protein 7.5, Albumin 4.0, Globulin 3.5, Albumin/Globulin Ratio 1.1 11/09/16 13:35: PT 11.4, INR 1.06, APTT 31.7 H 11/09/16 13:35: WBC 4.3 L, RBC 3.13 L, Hgb 9.6 L, Hct 27.4 L, MCV 87.5, MCH 30.7 , MCHC 35.0, RDW 13.8, Plt Count 244, MPV 8.5, Gran % 43.9 L, Lymph % (Auto) 36.7 H, [place] % (Auto) 13.8 H, Eos % (Auto) 4.7, Baso % (Auto) 0.9, Gran # 1.88, Lymph # 1.6, [place] # 0.6, Eos # 0.2, Baso # 0.04 I have reviewed the lab results: Yes - RAD Interpretation Radiology Orders: 11/09/16 15:19 CHEST PORTABLE [RAD] Stat Net Sorter: Radiologist - EKG Interpretation Interpreted by ED Physician: Yes Type: 12 lead EKG - Medication Orders Current Medication Orders: Discontinued Medications Furosemide (Lasix) 20 mg IVP STAT STA Stop: 11/09/16 15:20 Last Admin: 11/09/16 15:51 Dose: 20 mg Nitroglycerin (Nitro-Bid 2% Oint) 1 ea TOP STAT STA Stop: 11/09/16 15:21 Last Admin: 11/09/16 15:51 Dose: 1 ea - Scribe Statement The provider has reviewed the documentation as recorded by the Scribe 11/09/2016 Krista Nova Provider Scribe Attestation: All medical record entries made by the Scribe were at my direction and personally dictated by me. I have reviewed the chart and agree that the record accurately reflects my personal performance of the history, physical exam, medical decision making, and the department course for this patient. I have also personally directed, reviewed, and agree with the discharge instructions and disposition. Disposition/Present on Arrival - Present on Arrival Any Indicators Present on Arrival: No History of DVT/PE: No History of Uncontrolled Diabetes: No Urinary Catheter: No History of Decub. Ulcer: No History Surgical Site Infection Following: None - Disposition Have Diagnosis and Disposition been Completed?: Yes Diagnosis: CHF (congestive heart failure) Disposition: HOSPITALIZED Disposition Time: 17:38 Patient Plan: Observation Condition: FAIR Discharge Instructions (ExitCare): Heart Failure (ED) Referrals: PCP,NO [Primary Care Provider] - Follow up with primary Forms: [employer] ([place])
[2016-11-09 16:04] LABS: BASO # 0.04 K/mm3 (0.0-2.0); BASO % 0.9 % (0.0-3.0); EOS # 0.2 (0.0-0.7); EOS % 4.7 % (1.5-5.0); GRAN # 1.88 (1.4-6.5); GRAN % 43.9 % (50.0-68.0); HEMOGLOBIN 9.6 gm/dL (14.0-18.0); LYMPH # 1.6 (1.2-3.4); LYMPH % 36.7 % (22.0-35.0); MEAN CELL VOLUME 87.5 fL (80.0-105.0); MEAN CORPUSCULAR HEMOGLOBIN 30.7 pg (25.0-35.0); MEAN PLATELET VOLUME 8.5 fl (7.0-11.0); MONO # 0.6 (0.1-0.6); MONO % 13.8 % (1.0-6.0); PLATELET COUNT 244 10^3/uL (120.0-450.0); RBC 3.13 10^6/uL (3.5-6.1); RED CELL DISTRIBUTION WIDTH 13.8 % (11.5-14.5); WHITE BLOOD COUNT 4.3 10^3/ul (4.5-11.0)
[2016-11-09 16:12] LABS: INR 1.06 (0.93-1.08); PARTIAL THROMBOPLASTIN TIME 31.7 Seconds (23.7-30.8); PROTHROMBIN TIME 11.4 Seconds (9.9-11.8)
[2016-11-09 16:26] LABS: ALB/GLOB RATIO 1.1 (1.1-1.8); ALT/SGPT 40 U/L (7-56); AST/SGOT 83 U/L (15-59); BLOOD UREA NITROGEN 56 mg/dL (7-21); CALCIUM 8.9 mg/dL (8.4-10.5); GFR AFRICAN-AMERICAN 23; GFR NON-AFRICAN AMERICAN 19
--- NOTE | 2016-11-09 16:28 | RAD ---
HISTORY: sob COMPARISON: 10/28/2016 FINDINGS: LUNGS: Bibasilar infiltrates and effusions are unchanged. The upper lung mccurdy are clear PLEURA: No significant pleural effusion identified, no pneumothorax apparent. CARDIOVASCULAR: Normal. OSSEOUS STRUCTURES: No significant abnormalities. VISUALIZED UPPER ABDOMEN: Normal. OTHER FINDINGS: None. IMPRESSION: Bibasilar infiltrates and effusions unchanged
[2016-11-09 16:36] LABS: B-TYPE NATRIURETIC PEPTIDE 1830 pg/mL (0-450)
[2016-11-09 16:42] LABS: TROPONIN I < 0.01 ng/mL
--- NOTE | 2016-11-09 20:50 | CP.PCM.PN ---
Subjective - Date & Time of Evaluation Date of Evaluation: 11/09/16 Time of Evaluation: 20:49 - Subjective Subjective: Nurse Melanie calls and tells that patient's pulse ox is 96% on 2 L / min but is not breathing well. Patient was seen at bedside. Has no complaints. Denies sob, chest pain, nausea, sweating , palpitations. States that he was moved around, went to bathroom , at that time he felt sob, but is okay now. Medical record was reviewed. This 61 year old white male was admitted with sob after light activity, intermittent coughing. Has PMH of Cirrhosis , HTN , liver transplant , CHF,HTN, kidney stones, renal insufficiency. Objective - Vital Signs/Intake and Output Vital Signs (last 24 hours): Temp Pulse Resp BP Pulse Ox 98.2 F 86 19 140/81 100 11/09/16 14:38 11/09/16 19:19 11/09/16 19:19 11/09/16 19:19 11/09/16 19:19 - Medications Medications: Current Medications Amlodipine Besylate (Norvasc) 5 mg PO BID MICHELLE Carvedilol (Coreg) 12.5 mg PO BID MICHELLE Cyclosporine (Sandimmune) 25 mg PO BID MICHELLE Famotidine (Pepcid) 20 mg PO BID MICHELLE Ferrous Sulfate (Feosol) 324 mg PO DAILY MICHELLE Folic Acid (Folic Acid) 1 mg PO DAILY MICHELLE Furosemide (Lasix) 40 mg IVP BID MICHELLE Ceftriaxone Sodium (Rocephin 1 Gram Ivpb) 1 gm in 100 mls @ 100 mls/hr IVPB DAILY MCIHELLE PRN Reason: Protocol Azithromycin (Zithromax 500mg In Ns) 500 mg in 250 mls @ 167 mls/hr IVPB DAILY MICHELLE PRN Reason: Protocol Magnesium Oxide (Mag-Ox) 400 mg PO DAILY MICHELLE Mycophenolate Mofetil (Cellcept Cap) 1,250 mg PO BID MICHELLE Sodium Bicarbonate (Sodium Bicarbonate Tab) 650 mg PO TID MICHELLE - Labs Labs: PT 11.4 Seconds (9.9-11.8) 11/09/16 13:35 INR 1.06 (0.93-1.08) 11/09/16 13:35 APTT 31.7 Seconds (23.7-30.8) H 11/09/16 13:35 Most Recent Lab Values WBC 4.3 10^3/ul (4.5-11.0) L 11/09/16 13:35 RBC 3.13 10^6/uL (3.5-6.1) L 11/09/16 13:35 Hgb 9.6 gm/dL (14.0-18.0) L 11/09/16 13:35 Hct 27.4 % (42.0-52.0) L 11/09/16 13:35 MCV 87.5 fL (80.0-105.0) 11/09/16 13:35 MCH 30.7 pg (25.0-35.0) 11/09/16 13:35 MCHC 35.0 g/dl (31.0-37.0) 11/09/16 13:35 RDW 13.8 % (11.5-14.5) 11/09/16 13:35 Plt Count 244 10^3/uL (120.0-450.0) 11/09/16 13:35 MPV 8.5 fl (7.0-11.0) 11/09/16 13:35 Gran % 43.9 % (50.0-68.0) L 11/09/16 13:35 Lymph % (Auto) 36.7 % (22.0-35.0) H 11/09/16 13:35 Sevier % (Auto) 13.8 % (1.0-6.0) H 11/09/16 13:35 Eos % (Auto) 4.7 % (1.5-5.0) 11/09/16 13:35 Baso % (Auto) 0.9 % (0.0-3.0) 11/09/16 13:35 Gran # 1.88 (1.4-6.5) 11/09/16 13:35 Lymph # 1.6 (1.2-3.4) 11/09/16 13:35 Sevier # 0.6 (0.1-0.6) 11/09/16 13:35 Eos # 0.2 (0.0-0.7) 11/09/16 13:35 Baso # 0.04 K/mm3 (0.0-2.0) 11/09/16 13:35 PT 11.4 Seconds (9.9-11.8) 11/09/16 13:35 INR 1.06 (0.93-1.08) 11/09/16 13:35 APTT 31.7 Seconds (23.7-30.8) H 11/09/16 13:35 Sodium 135 mmol/L (132-148) 11/09/16 13:35 Potassium 4.5 mmol/L (3.6-5.0) 11/09/16 13:35 Chloride 98 mmol/L (98-107) 11/09/16 13:35 Carbon Dioxide 23 mmol/L (21-33) 11/09/16 13:35 Anion Gap 19 (10-20) 11/09/16 13:35 BUN 56 mg/dL (7-21) H 11/09/16 13:35 Creatinine 3.3 mg/dL (0.5-1.4) H 11/09/16 13:35 Est GFR ( Amer) 23 11/09/16 13:35 Est GFR (Non-Af Amer) 19 11/09/16 13:35 Random Glucose 98 mg/dL (70-110) 11/09/16 13:35 Calcium 8.9 mg/dL (8.4-10.5) 11/09/16 13:35 Total Bilirubin 1.8 mg/dL (0.2-1.3) H 11/09/16 13:35 AST 83 U/L (15-59) H 11/09/16 13:35 ALT 40 U/L (7-56) 11/09/16 13:35 Alkaline Phosphatase 804 U/L (38-133) H 11/09/16 13:35 Lactate Dehydrogenase 624 U/L (333-699) 11/09/16 13:35 Total Creatine Kinase 47 U/L (35-230) 11/09/16 13:35 Troponin I < 0.01 ng/mL D 11/09/16 13:35 NT-Pro-B Natriuret Pep 1830 pg/mL (0-450) H 11/09/16 13:35 Total Protein 7.5 g/dL (5.8-8.3) 11/09/16 13:35 Albumin 4.0 g/dL (3.0-4.8) 11/09/16 13:35 Globulin 3.5 gm/dL 11/09/16 13:35 Albumin/Globulin Ratio 1.1 (1.1-1.8) 11/09/16 13:35 - Constitutional Appears: Well, No Acute Distress - Head Exam Head Exam: ATRAUMATIC, NORMAL INSPECTION, NORMOCEPHALIC - Eye Exam Eye Exam: Normal appearance - ENT Exam ENT Exam: Normal External Ear Exam - Neck Exam Neck Exam: Normal Inspection - Respiratory Exam Respiratory Exam: NORMAL BREATHING PATTERN - Cardiovascular Exam Cardiovascular Exam: absent: JVD - GI/Abdominal Exam GI & Abdominal Exam: absent: Distended - Rectal Exam Rectal Exam: Deferred - Exam Additional comments: Deferred. - Extremities Exam Extremities Exam: Normal Inspection - Back Exam Back Exam: NORMAL INSPECTION - Neurological Exam Neurological Exam: Alert, Oriented x3 - Psychiatric Exam Psychiatric exam: Normal Affect, Normal Mood - Skin Skin Exam: Normal Color Assessment and Plan - Assessment and Plan (Free Text) Assessment: Dyspnea. Cirrhosis. HTN. S/P liver transplant. Anemia. CHF. Elevated LFT's. Elevated BNP. Plan: Observation. If feels short of breath, re examine and give lasix + neb treatment. Continue present management.
--- NOTE | 2016-11-10 02:52 | HP ---
HISTORY OF PRESENT ILLNESS: I know Kelechi very well from multiple visits to the office and recent hospital admission for CHF. He is a 61-year-old male began to having shortness of breath. He was taking his Lasix as an outpatient, but it got steadily worse. He came to the emergency room. He was also very weak. PAST MEDICAL HISTORY: Liver transplant in 2002 for cirrhosis, hypertension, CHF and pneumonia. He has shortness of breath for a little bit of light activity, voice and was also coughing. Hypertension, congestive heart failure, kidney stones, and cirrhosis. FAMILY HISTORY: Hypertension in the family. SOCIAL HISTORY: Never smoked. No alcohol. No drugs. ALLERGIES: MILK IS HIS ALLERGY. MEDICATIONS: He takes iron, magnesium, folic acid, famotidine, Cellcept, Coreg, Lasix, Norvasc, Neoral and sodium bicarbonate. REVIEW OF SYSTEMS: No vision changes. No hearing changes. He was short of breath. He was coughing. No chest pain. No abdominal pain. No nausea, vomiting, constipation, or diarrhea. No extremity issues. His legs were getting swollen. No numbness or tingling. No anxiety, no depression, just short of breath. PHYSICAL EXAMINATION: GENERAL: He is well appearing, a little bit anxious, little bit nervous with the situation happening so soon. Uncomfortable at this time. Alert and oriented x3. VITAL SIGNS: He has 97 temperature, 69 pulse, 18 respiratory rate, 132/75 blood pressure and 96% O2 saturation on room air. HEENT: Head atraumatic, normocephalic. Eyes; pupils equal and reactive to light and accumulation. Extraocular muscles are intact. Throat is moist. NECK: Supple. Thyroid is midline. No palpable lymphadenopathy appreciated. HEART: Regular rate. Normal S1, S2. LUNGS: Decreased breath sounds bilaterally. Mild congestion, changes with cough. ABDOMEN: Soft, nontender, positive bowel sounds. EXTREMITIES: Trace edema, bilateral lower extremities. GCS is 15. Cranial nerves 2 to 12 grossly intact. Speech is normal. SKIN: Warm and dry. No rashes. No ulcers. NEUROLOGIC: Alert and oriented x3. LABORATORY DATA: He had multiple tests. He has 135 sodium, potassium 4.5, BUN 56, and creatinine 3.3, has little bit above his baseline. Calcium is 8.9, sugar is 98, total bilirubin is 1.8, AST is 83, ALT is 40, alkaline phosphatase . Troponin is less than 0.01. BNP is high at 1830. Total protein 7.5, albumin is 4, INR is 1.06. He has 4.3 white count, 9.6 hemoglobin, 27.4 hematocrit and 244 platelets. He has a chest x-ray which showed bibasilar infiltrates and effusions unchanged. The exam is more of a congestive heart failure texture. MEDICATIONS: He will get Lasix 40 IV b.i.d. He will get Rocephin IV, Zithromax IV. He will have his regular medications. PLAN: He will have consults with pulmonary, cardio and renal. He is here for shortness of breath; CHF; infiltrates; renal insufficiency, may be renal failure. He is status post liver transplant for cirrhosis. He will be on observation. Hopefully, if he does well and diureses well, we could send him home tomorrow. Giovanny Elliott DO MTDD
[2016-11-10] MEDS ORDERED: Levalbuterol 0.63 MG/3 ML Inhal Soln UD IH PRN (06:40)
[2016-11-10 07:04] LABS: HEMOGLOBIN 9.5 gm/dL (14.0-18.0); MEAN CELL VOLUME 88.1 fL (80.0-105.0); MEAN CORPUSCULAR HEMOGLOBIN 29.9 pg (25.0-35.0); MEAN CORPUSCULAR HGB CONC 33.9 g/dl (31.0-37.0); MEAN PLATELET VOLUME 8.5 fl (7.0-11.0); RBC 3.18 10^6/uL (3.5-6.1); RED CELL DISTRIBUTION WIDTH 13.7 % (11.5-14.5)
[2016-11-10] MEDS: Levalbuterol 0.63 MG/3 ML Inhal Soln UD IH SCH ×3 (07:11→19:50)
--- NOTE | 2016-11-10 07:35 | CON ---
REASON FOR CONSULTATION: Rule out pneumonia. REFERRING PHYSICIAN: Dr. Giovanny Elliott. HISTORY OF PRESENT ILLNESS: The patient is a 61-year-old male with past medical history significant for congestive heart failure, hypertension, liver transplant (2003 for cirrhosis), who presents to [facility] with a 3-day history of worsening shortness of breath at rest, dyspnea on exertion, and cough. The patient denies sputum production. The patient also denies chest pain, coughing up of blood, or chest pain - made worse with deep respirations. There is no history of temperatures, chills, or infectious exposure. There is no history of night sweats, weight loss, or appetite change prior to the above events. No history of calf pains. No history of syncope or diaphoresis. No history of recent travel or trauma. REVIEW OF SYSTEMS: No history of nausea, vomiting or diarrhea. No acute urinary symptoms. No new neurologic or musculoskeletal complaints. Rest of the review of systems is negative. ALLERGIES: MILK. SOCIAL HISTORY: Positive for alcohol abuse. Negative tobacco. FAMILY HISTORY: No inheritable diseases. HOME MEDICATIONS: Include ferrous sulphate, famotidine, Coreg, Norvasc, CellCept, Lasix. PHYSICAL EXAMINATION GENERAL: The patient is not short of breath at rest. He is not using accessory muscles for breathing. VITAL SIGNS: Temperature is 97.5, pulse is 73, respirations 18/20, blood pressure 137/74. Oxygen saturation on nasal cannula ranges from 95% to 100%. HEENT: Normocephalic, atraumatic. No JVD. CARDIOVASCULAR: Positive S1 and S2. Positive S3 gallop. LUNGS: Decreased breath sounds at the bases with crackles. Minimal bilateral rhonchi. No wheezing. EXTREMITIES: Positive edema. No cyanosis. No clubbing. Calves are nontender to palpation. GASTROINTESTINAL: Abdomen is soft, nontender, nondistended. Bowel sounds are positive. SKIN: No acute rash. NEUROLOGIC: Limited at the present time. PERTINENT LABORATORY DATA: Chest x-ray was done yesterday and reviewed. The chest x-ray reveals [id number] pulmonary vascular congestive changes - consistent with congestive heart failure. There are also bilateral pleural effusions seen. The film does not appear significantly changed from the previous films. Complete metabolic profile: BUN 56, creatinine 3.3, bilirubin 1.8, AST 83, alkaline phosphatase 804, B-type natriuretic peptide 1830. Rest of the metabolic profile is within normal limits. CBC: White count 4.3, hemoglobin 9.6, hematocrit 27.4, platelets of 244. IMPRESSION: 1. Recurrent congestive heart failure. 2. Chronic pleural effusions. 3. Mild acute bronchitis. 4. Anemia. 5. Renal insufficiency. PLAN: The presents to [facility] with a 3-day history of worsening pulmonary symptoms. I did review the chest x-ray as above. The chest x-ray is consistent with congestive heart failure and bilateral pleural effusions. As above, the chest x-ray is not significantly changed from the previous films. The patient has been placed on intravenous Lasix. Cardiology evaluation with Dr. Mccormack has been ordered. On physical exam, there is mild bronchospasm present. Oxygen saturation on nasal cannula is between 95% to 100%. I will start Xopenex nebulizer treatments this morning. The patient has also been started on antibiotic therapy. There are no temperatures by history. There is no leukocytosis. The overall picture is not one of acute pneumonia. The patient does feel better and is clinically improved this morning - compared to the past few days. Additional pulmonary intervention will be based on the clinical status of the patient. I will discuss the above with Dr. Elliott this morning. Thank you very much for this pulmonary consultation. Terry Nick MD MORENA
[2016-11-10 07:43] LABS: ALB/GLOB RATIO 1.3 (1.1-1.8); ALBUMIN 3.8 g/dL (3.0-4.8); CALCIUM 8.9 mg/dL (8.4-10.5)
[2016-11-10] MEDS: Magnesium Oxide 400 mg Tab UD PO SCH (09:42)
--- NOTE | 2016-11-10 09:43 | CARD ---
APPROVED REPORT EKG Measurement Heart [id number] [place] [id number] [id number] <Conclusion> Normal sinus rhythm with 1st degree AVB (new) Anterior infarct, age undetermined T wave abnormality, consider lateral ischemia Prolonged QT
[2016-11-10] MEDS ORDERED: Azithromycin 500MG/NS 250ml 500 MG/250 ML BAG IVPB SCH (10:00)
[2016-11-10] MEDS ORDERED: cefTRIAXone 1 gm 1 GM/100 ML BAG IVPB SCH (10:00)
--- NOTE | 2016-11-10 12:45 | PN ---
DATE: 11/09/2016 SUBJECTIVE: I saw the patient this morning, a little bit better than yesterday, but still little bit of short of breath. He has been diuresed with Lasix 40 b.i.d. I discussed with Dr. Nick, the assembly technician that it is bilateral pleural effusions, no pneumonia, so I will stop the Zithromax and Rocephin. He is comfortable, not 100% yet. PHYSICAL EXAMINATION VITAL SIGNS: He has a 97.5 temperature, 73 pulse, 137/74 blood pressure, 20 respiratory rate, 95% O2 sat on nasal cannula. HEENT: Head is atraumatic, normocephalic. Throat moist. NECK: Supple. HEART: Regular rate. LUNGS: Decreased breath sounds, but clear to auscultation. ABDOMEN: Soft. EXTREMITIES: No edema. MEDICATIONS: He is on CellCept, Coreg, iron, folic acid, Lasix, magnesium oxide, Norvasc, Pepcid, cyclosporine, sodium bicarbonate, Xopenex. LABORATORY DATA: He has a 137 sodium, 4.4 potassium, BUN 55, creatinine 3.2. GFR is 20. Sugar is 86, calcium is 8.9, total bilirubin is 1.6, AST is 53, ALT is 40, alkaline phosphatase His troponin is less than 0.01, total protein is 6.8, BNP 1830. White count is 5, hemoglobin 9.5, hematocrit 28, platelets 270. ASSESSMENT AND PLAN: He has been seen by the assembly technician. There are consults for Cardiology and Renal. I do not think they have seen him yet. I will discuss with if there is any treatment we need to do except diuresing. I will continue aggressive treatment and care on the patient. Giovanny Elliott DO MTDD
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
[2016-11-10 14:32] LABS: URINE BILIRUBIN NEGATIVE (NEGATIVE); URINE BLOOD SMALL (NEGATIVE); URINE GLUCOSE (UA) NEGATIVE (NEGATIVE); URINE LEUKOCYTE ESTERASE TRACE Leu/uL (NEGATIVE); URINE NITRATE NEGATIVE (NEGATIVE); URINE PROTEIN NEGATIVE mg/dL (<30 mg/dL); URINE UROBILINOGEN 0.2 E.U./dL (<1 E.U./dL)
[2016-11-10 14:42] LABS: URINE APPEARANCE CLEAR (CLEAR); URINE COLOR LIGHT YELLOW (YELLOW)
[2016-11-10 14:43] LABS: URINE EPITHELIAL CELLS 0 - 2 /hpf (0-5)
[2016-11-10 14:44] LABS: URINE BACTERIA FEW (NEG)
--- NOTE | 2016-11-10 16:02 | CON ---
DATE: 11/10/2016 HISTORY OF PRESENT ILLNESS: The patient is a 61-year-old male who presents with progressive shortness of breath. The patient's past medical history is notable for renal transplant, years ago for cirrhosis. The patient has a history of alcohol abuse. He also suffered from hypertension. He was admitted recently for progressive dyspnea and was treated with diuretics. There is a discrepancy in terms of his LV function with a nuclear test suggesting normal LV with an echocardiogram suggesting compromised left ventricle. He denies edema in the lower extremities. No angina. Stress test done in September 2016 reveals no ischemic disease. SOCIAL HISTORY: Denies smoking, but does use excessive alcohol. REVIEW OF SYSTEMS: Dominated by dyspnea. PHYSICAL EXAMINATION: VITAL SIGNS: Blood pressure is 138/82, heart rate in the 70s. NECK: Negative JVD. LUNGS: Decreased breath sounds, expiratory wheezing. HEART: Reveals S1, S2. EXTREMITIES: Without edema. EKG shows no acute changes. LABORATORY DATA: Hemoglobin is 9.5. Creatinine reviewed over the past several months is increasing up to 3.2 today. ProBNP 1830. IMPRESSION: 1. Acute systolic congestive heart failure. 2. Questionable cardiomyopathy. 3. History of liver transplant. 4. Progressive renal disease. 5. Anemia. 6. Need to rule out cardiomyopathy. Given these findings, we will repeat an echocardiogram to evaluate LV function. Renal consult has been called for. I agree with continuing his IV Lasix. Jose Martin Mccormack MD
[2016-11-10] MEDS: metOLazone 2.5 MG TAB PO SCH (17:37)
[2016-11-11] MEDS: Levalbuterol 0.63 MG/3 ML Inhal Soln UD IH SCH ×4 (02:00→19:50)
--- NOTE | 2016-11-11 04:19 | CP.PCM.PN ---
Subjective - Date & Time of Evaluation Date of Evaluation: 11/11/16 Time of Evaluation: 04:18 - Subjective Subjective: Nurse calls and tells that patient is by the nursing station, has been wheezing , is drowsy, is short of breath, asking for sleeping pill. Patient was seen at bedside. Audible wheezing heard from distance. Patient is sleeping , was arousable, as soon as he woke up asked for sleeping pill. Denies chest pain, sob, nausea, sweating , palpitation. Pulse ox: 96% on RA. This 61 year old white male was admitted with sob/CHF. Has PMH of HTN, CHF, PNA, liver transplant, renal insufficiency. Objective - Vital Signs/Intake and Output Vital Signs (last 24 hours): Temp Pulse Resp BP Pulse Ox 97.3 F L 71 20 140/84 95 11/10/16 23:26 11/11/16 01:54 11/10/16 23:26 11/10/16 23:26 11/11/16 02:56 Intake and Output: 11/10/16 11/11/16 18:59 06:59 Intake Total 1620 Output Total 1000 Balance 620 - Medications Medications: Current Medications Amlodipine Besylate (Norvasc) 5 mg PO BID [facility] Last Admin: 11/10/16 17:37 Dose: 5 mg Carvedilol (Coreg) 12.5 mg PO BID [facility] Last Admin: 11/10/16 17:37 Dose: 12.5 mg Cyclosporine (Sandimmune) 25 mg PO BID [facility] Last Admin: 11/10/16 17:44 Dose: Not Given Famotidine (Pepcid) 20 mg PO BID [facility] Last Admin: 11/10/16 17:37 Dose: 20 mg Ferrous Sulfate (Feosol) 324 mg PO DAILY [facility] Last Admin: 11/10/16 09:43 Dose: 324 mg Folic Acid (Folic Acid) 1 mg PO DAILY [facility] Last Admin: 11/10/16 09:42 Dose: 1 mg Furosemide (Lasix) 40 mg IVP BID [facility] Last Admin: 11/10/16 18:10 Dose: 40 mg Levalbuterol HCl (Xopenex) 0.63 mg IH [id number] [facility] Last Admin: 11/11/16 02:00 Dose: Not Given Levalbuterol HCl (Xopenex) 0.63 mg IH Q2 PRN PRN Reason: Shortness of Breath Last Admin: 11/11/16 04:12 Dose: 0.63 mg Magnesium Oxide (Mag-Ox) 400 mg PO DAILY [facility] Last Admin: 11/10/16 09:42 Dose: 400 mg Metolazone (Zaroxolyn) 2.5 mg PO BID [facility] Stop: 11/13/16 18:01 Last Admin: 11/10/16 17:37 Dose: 2.5 mg Mycophenolate Mofetil (Cellcept Cap) 1,250 mg PO BID [facility] Last Admin: 11/10/16 17:36 Dose: 1,250 mg Sodium Bicarbonate (Sodium Bicarbonate Tab) 650 mg PO TID [facility] Last Admin: 11/10/16 17:37 Dose: 650 mg - Labs Labs: PT 11.4 Seconds (9.9-11.8) 11/09/16 13:35 INR 1.06 (0.93-1.08) 11/09/16 13:35 APTT 31.7 Seconds (23.7-30.8) H 11/09/16 13:35 Laboratory Last Values WBC 5.0 10^3/ul (4.5-11.0) 11/10/16 06:00 RBC 3.18 10^6/uL (3.5-6.1) L 11/10/16 06:00 Hgb 9.5 gm/dL (14.0-18.0) L 11/10/16 06:00 Hct 28.0 % (42.0-52.0) L 11/10/16 06:00 MCV 88.1 fL (80.0-105.0) 11/10/16 06:00 MCH 29.9 pg (25.0-35.0) 11/10/16 06:00 MCHC 33.9 g/dl (31.0-37.0) 11/10/16 06:00 RDW 13.7 % (11.5-14.5) 11/10/16 06:00 Plt Count 270 10^3/uL (120.0-450.0) 11/10/16 06:00 MPV 8.5 fl (7.0-11.0) 11/10/16 06:00 Gran % 43.9 % (50.0-68.0) L 11/09/16 13:35 Lymph % (Auto) 36.7 % (22.0-35.0) H 11/09/16 13:35 [place] % (Auto) 13.8 % (1.0-6.0) H 11/09/16 13:35 Eos % (Auto) 4.7 % (1.5-5.0) 11/09/16 13:35 Baso % (Auto) 0.9 % (0.0-3.0) 11/09/16 13:35 Gran # 1.88 (1.4-6.5) 11/09/16 13:35 Lymph # 1.6 (1.2-3.4) 11/09/16 13:35 [place] # 0.6 (0.1-0.6) 11/09/16 13:35 Eos # 0.2 (0.0-0.7) 11/09/16 13:35 Baso # 0.04 K/mm3 (0.0-2.0) 11/09/16 13:35 PT 11.4 Seconds (9.9-11.8) 11/09/16 13:35 INR 1.06 (0.93-1.08) 11/09/16 13:35 APTT 31.7 Seconds (23.7-30.8) H 11/09/16 13:35 Sodium 137 mmol/L (132-148) 11/10/16 06:00 Potassium 4.4 mmol/L (3.6-5.0) 11/10/16 06:00 Chloride 99 mmol/L (95-110) 11/10/16 06:00 Carbon Dioxide 24 mmol/L (21-33) 11/10/16 06:00 Anion Gap 18 (10-20) 11/10/16 06:00 BUN 55 mg/dL (7-21) H 11/10/16 06:00 Creatinine 3.2 mg/dL (0.5-1.4) H 11/10/16 06:00 Est GFR ( Amer) 24 11/10/16 06:00 Est GFR (Non-Af Amer) 20 11/10/16 06:00 POC Glucose (mg/dL) 107 mg/dL (65-110) 11/11/16 04:43 Random Glucose 86 mg/dL (70-110) 11/10/16 06:00 Calcium 8.9 mg/dL (8.4-10.5) 11/10/16 06:00 Total Bilirubin 1.6 mg/dL (0.2-1.3) H 11/10/16 06:00 AST 53 U/L (15-59) 11/10/16 06:00 ALT 40 U/L (7-56) 11/10/16 06:00 Alkaline Phosphatase 706 U/L (38-133) H 11/10/16 06:00 Lactate Dehydrogenase 624 U/L (333-699) 11/09/16 13:35 Total Creatine Kinase 47 U/L (35-230) 11/09/16 13:35 Troponin I < 0.01 ng/mL D 11/09/16 13:35 NT-Pro-B Natriuret Pep 1830 pg/mL (0-450) H 11/09/16 13:35 Total Protein 6.8 g/dL (5.8-8.3) 11/10/16 06:00 Albumin 3.8 g/dL (3.0-4.8) 11/10/16 06:00 Globulin 3.0 gm/dL 11/10/16 06:00 Albumin/Globulin Ratio 1.3 (1.1-1.8) 11/10/16 06:00 Urine Color Light yellow (YELLOW) 11/10/16 14:25 Urine Appearance Clear (CLEAR) 11/10/16 14:25 Urine pH 6.0 (4.7-8.0) 11/10/16 14:25 Ur Specific [place] 1.010 (1.005-1.035) 11/10/16 14:25 Urine Protein Negative mg/dL (<30 mg/dL) 11/10/16 14:25 Urine Glucose (UA) Negative mg/dL (NEGATIVE) 11/10/16 14:25 Urine Ketones Negative mg/dL (NEGATIVE) 11/10/16 14:25 Urine Blood Small (NEGATIVE) H 11/10/16 14:25 Urine Nitrate Negative (NEGATIVE) 11/10/16 14:25 Urine Bilirubin Negative (NEGATIVE) 11/10/16 14:25 Urine Urobilinogen 0.2 E.U./dL (<1 E.U./dL) 11/10/16 14:25 Ur Leukocyte Esterase Trace Lamont/uL (NEGATIVE) H 11/10/16 14:25 Urine RBC 2 - 5 /hpf (0-2) 11/10/16 14:25 Urine WBC 1 - 3 /hpf (0-6) 11/10/16 14:25 Ur Epithelial Cells 0 - 2 /hpf (0-5) 11/10/16 14:25 Urine Bacteria Few (NEG) 11/10/16 14:25 Ur Random Creatinine 60 mg/dL 11/10/16 14:25 Ur Random Sodium 101 meq/L 11/10/16 14:25 - Constitutional Appears: Well, No Acute Distress - Head Exam Head Exam: ATRAUMATIC, NORMAL INSPECTION, NORMOCEPHALIC - Eye Exam Eye Exam: Normal appearance - ENT Exam ENT Exam: Normal External Ear Exam - Neck Exam Neck Exam: Normal Inspection - Respiratory Exam Respiratory Exam: Wheezes (++), NORMAL BREATHING PATTERN. absent: Accessory Muscle Use, Chest Wall Tenderness, Rales, Rhonchi, Respiratory Distress, Stridor - Cardiovascular Exam Cardiovascular Exam: REGULAR RHYTHM, +S1 (Normal.), +S2 (Normal.). absent: JVD - GI/Abdominal Exam GI & Abdominal Exam: Normal Bowel Sounds. absent: Distended - Rectal Exam Rectal Exam: Deferred - Exam Additional comments: Deferred. - Extremities Exam Extremities Exam: Normal Inspection - Back Exam Back Exam: NORMAL INSPECTION - Neurological Exam Neurological Exam: Altered Additional comments: Drowsy. - Psychiatric Exam Psychiatric exam: Normal Affect - Skin Skin Exam: Normal Color Assessment and Plan - Assessment and Plan (Free Text) Assessment: Wheezing. Drowsy. Dyspnea. CHF. R/O hypoglycemia. R/O Hypercarbia. Hx liver transplant. Plan: Received nebulizer treatment. Solumedrol 125 mg IV stat. Fasting blood sugar. ABG. Avoid hypnotic. Continue present management.
[2016-11-11 05:07] LABS: ARTERIAL BLOOD GAS HCO3 23.6 mmol/L (21-28); ARTERIAL BLOOD GAS O2 CAPACITY 12.6 mL/dl (16-24); ARTERIAL BLOOD GAS O2 CONTENT 12.3 ML/dl (15-23); ARTERIAL BLOOD GAS O2 SAT 97.9 % (95-98); ARTERIAL BLOOD GAS PCO2 48 mm/Hg (35-45); ARTERIAL BLOOD GAS TCO2 25.1 mmol.L (22-28)
[2016-11-11 07:00] LABS: ALB/GLOB RATIO 1.1 (1.1-1.8); ALBUMIN 3.9 g/dL (3.0-4.8); CALCIUM 9.1 mg/dL (8.4-10.5)
[2016-11-11 07:03] LABS: HEMOGLOBIN 9.5 gm/dL (14.0-18.0); MEAN CELL VOLUME 87.7 fL (80.0-105.0); MEAN CORPUSCULAR HEMOGLOBIN 30.1 pg (25.0-35.0); MEAN CORPUSCULAR HGB CONC 34.3 g/dl (31.0-37.0); MEAN PLATELET VOLUME 8.5 fl (7.0-11.0); RBC 3.16 10^6/uL (3.5-6.1); RED CELL DISTRIBUTION WIDTH 13.6 % (11.5-14.5)
--- NOTE | 2016-11-11 07:31 | PN ---
SUBJECTIVE: The patient appears mildly short of breath this morning. He is in no acute distress. PHYSICAL EXAMINATION VITAL SIGNS: Temperature 97.2, pulse 68, respirations 22/24, blood pressure 149/74. Oxygen saturation on nasal cannula is 98%. HEENT: Normocephalic, atraumatic. NECK: No JVD. CARDIOVASCULAR: Positive S1 and S2. Positive S3 gallop. LUNGS: Decreased breath sounds at the bases with crackles. Minimal bilateral rhonchi. Minimal wheezing this morning. EXTREMITIES: Positive for edema. No cyanosis, no clubbing. Calves are nontender to palpation. GASTROINTESTINAL: Abdomen is soft, nontender, nondistended. Bowel sounds are positive. SKIN: No acute rash. NEUROLOGIC: Exam is limited at the present time. PERTINENT LABORATORY DATA: Arterial blood gas was done this morning on nasal cannula. Results are: pH of 7.30, pCO2 of 48, pO2 of 80. IMPRESSION: 1. Recurrent congestive heart failure. 2. Chronic pleural effusions. 3. Acute bronchitis. 4. Anemia. 5. Renal insufficiency. PLAN: The patient appears mildly short of breath this morning. He is in no acute distress. I did discuss the case with the night nurse at length. The patient did get extra Lasix last night. The patient also received an intravenous dose of Solu-Medrol. On physical exam, there is a mild wheezing noted this morning. I will continue the current nebulizer treatments and add inhaled steroids. I have also reviewed the arterial blood gas. There is a mild respiratory acidosis noted. Oxygen saturation on nasal cannula is 98%, and we will continue with the supplemental oxygen for now. I would continue the cardiology evaluation as per Dr. Mccormack. His input is noted. Echocardiogram has been done, but the results were not in the computer. Input by Dr. Church (renal) is also noted. The patient's clinical status/prognosis remains guarded. I will discuss the above with Dr. Elliott. Terry Nick MD MTDYan
[2016-11-11] MEDS: Budesonide 0.5 mg/2 ml Inhal Susp UD IH SCH ×2 (07:53→19:50)
[2016-11-11] MEDS: metOLazone 2.5 MG TAB PO SCH ×2 (09:19→18:50)
[2016-11-11] MEDS: Magnesium Oxide 400 mg Tab UD PO SCH (09:25)
--- NOTE | 2016-11-11 09:32 | PN ---
SUBJECTIVE: Kelechi is resting comfortably in bed. He is not doing that well, did not sleep well last night. He is actually wheezing this morning and is short of breath, on oxygen. He looks worse than the day before. I understand the supervisor concrete [employer] fabric[employer] came in this morning, gave him an extra dose of Lasix, also started him on IV Solu-Medrol for the wheezing plus breathing treatment. He is uncomfortable. He is short of breath and wheezing loud. PHYSICAL EXAMINATION VITAL SIGNS: He has 97.2 temperature, 68 pulse, 149/74 blood pressure, 24 respiratory rate, 98% O2 saturation on nasal cannula. HEENT: Head is atraumatic and normocephalic. Throat is moist. NECK: Supple. HEART: Regular rate. LUNGS: Wheezing bilaterally all over the place. Does not change with cough. ABDOMEN: Soft. EXTREMITIES: No edema. NEUROLOGIC: He looks weak and in trouble. LABORATORY DATA: He has a 4 white count, 9.5 hemoglobin and 27.7 hematocrit with 234 platelets. His sodium is 137, potassium is 4.6, BUN is 56, and creatinine is better at 2.8. GFR is up to 23. Sugar is 103 and calcium is 9.1. Total bilirubin is 1.7. AST is 69, ALT is 41, and alkaline phosphatase is 782. His BNP went up to 2720. ASSESSMENT AND PLAN: He has been seen by cardio and pulmonary, he is looking worse today. He is here for acute shortness of breath, congestive heart failure, chronic obstructive pulmonary disease, and renal insufficiency, status post liver transplant. Do the best we can to tune up his lungs and his heart and his kidneys. check if physical therapy involved and oxygen and hoping will improve. Giovanny Elliott DO MTDD
--- NOTE | 2016-11-11 12:06 | PN ---
DATE: 11/11/2016 SUBJECTIVE: The patient at rest, breathing is improved. PHYSICAL EXAMINATION: VITAL SIGNS: Blood pressure 149/74, the heart rate is in the 60s. NECK: Negative JVD. LUNGS: Decreased breath sounds bilaterally with expiratory wheezing. HEART: Reveal S1, S2. EXTREMITIES: Without change. LABORATORY DATA: BUN and creatinine 56/2.8. ProBNP is 2720. Hemoglobin is 9.5. Repeat echocardiogram reveals an ejection fraction of 45% to 50%. IMPRESSION: 1. Bronchospasm. 2. Mild fluid overload with CHF. 3. History of liver transplantation. 4. Dyspnea, which is improved. Given these findings, I agree with IV Lasix through 24 to 48 hours. I agree with steroids to aggressively treat his bronchospasm. Jose Martin Mccormack MD
--- NOTE | 2016-11-11 14:37 | CP.PCM.PN ---
Subjective - Date & Time of Evaluation Date of Evaluation: 11/11/16 Time of Evaluation: 14:31 - Subjective Subjective: Follow up Nephrology Consultation: Assessment: critical Acute Kidney Injury (N17.9) suspect it likely due to venous congestion and cardio-renal syndrome due to acute on chronic sys CHF Bilateral pleural effusions Chronic Kidney Disease (N18.3) Stage 3 with 790 mg proteinuria (R80.9) may be due to chronic usage of cyclosporine Anemia (D64.9), HTN (I12.9) hx of liver transplantation in 2002 abnormal SPEP, elevated Alk phos Plan No acute need for renal replacement therapy at this time, hopefully will be able to diurese him with meds. He is on lasix 40 IV bid, also had added PO metolazone 2.5 mg bid. if unable to diurese him then could need temporary dialysis to optimize his volume status in view of his concurrent MARLENY. oral fluid restriction to 1L/day Hypertension control with meds as ordered. Patient not on ACEI/ARB due to MARLENY Monitor Input/Output, daily weights and renal function with basic metabolic panel continue with sodium Bicarb supplements Check for kappa/lambda ratio Dose meds/antibiotics for reduced GFR. Avoid fleets enema/magnesium based laxatives. Avoid nephrotoxins/NSAIDs/ iodinated contrast (unless needed emergently) Glycemic control Further work up/management for CHF as per primary team. Immunosuppressive meds for liver Tx as per GI. ? check cyclosporine level Thanks for allowing me to participate in care of your patient. Will follow patient with you. Please call if any Qs. d/w primary team. Dr Bhavesh Church Office: [phone] Chief Complaint; Shortness of breath Reason for consult: elevated creatinine and MARLENY HPI: Pt is a 61 y/o M with hx of liver transplant in 2002 and subsequent hx of HTN, CKD 3 (baseline cr 1.5-1.7), chronic systolic CHF admitted recently 2 weeks ago with CHF exacerbation and MARLENY with elevated creatinine 2.3 mg/dL which improved to 2.0 at d/c with IV lasix. he came back with worsening SOB and CHF exacerbation. also with MARLENY with creatinine 3.2 mg/dL his liver Tx was managed with cyclosporine but also added cellcept since mar 2016 when noted to have high alkaline phos. Subjective: Denies chest pain, palpitation, but has shortness of breath, denies much leg swelling. he feels making bit more urine. improved cough. ROS: Cardiovascular: No chest pain. There is c/o shortness of breath on exertion. No palpitations. Pulmonary: c/o shortness of breath and some dry cough. Gastrointestinal: denies abdominal pain No nausea. No vomiting. Denies change in bowel habits. Denies Bleeding Genitourinary: No Change in force of strain when urinating. No increase in urinary frequency. No pain while urinating. Denies blood in urine. Neurological: Denies headaches. No dizziness. Denies loss of balance. Denies weakness, denies tingling/numbness All other negative Physical Examination: General Appearance: in no acute respiratory distress but has SOB on talking, co- operative . Vitals reviewed and noted as below Head; Atraumatic, normocephalic ENT: no ulcers no thrush. Tongue is midline. Oropharynx: no rash or ulcers. EYES: Pupils are equal, round and reactive to light accommodation. Eye muscles and extraocular movement intact. Sclera is icteric. Neck; supple no lymphadenopathy, no thyromegaly or bruit Lungs: increased respiratory rate/effort. Unable to speak in full sentences. Breath sounds bilateral decreased at lower lung mccurdy with few wheezes b/l Heart: Normal rate. s1s2 normal. No rub or gallop. Extremities: trace edema. No varicose veins Neurological: Patient is alert, awake and oriented to person, place and time. No focal deficit. Strength bilateral appropriate and equal Skin: Warm and dry. Normal turgor. No rash. Palpitation: Normal elasticity for age Abdomen: Abdomen is soft. Bowel sounds +. There is no abdominal tenderness, no guarding/rigidity but appear to have hepatomegaly Psych: normal insight and normal affect/mood MSK: no joint tenderness or swelling. Digits and nails normal, no deformity : kidney or bladder not palpable Labs/imaging/EKG reviewed. Past medical history, past surgical history, family history, social history, allergy reviewed and noted as below Family hx: no hx of CKD. 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 + Objective - Vital Signs/Intake and Output Vital Signs (last 24 hours): Temp Pulse Resp BP Pulse Ox 96.6 F L 72 19 138/82 98 11/11/16 12:00 11/11/16 12:00 11/11/16 12:00 11/11/16 12:00 11/11/16 05:43 Intake and Output: 11/11/16 11/11/16 06:59 18:59 Intake Total 120 360 Output Total 800 700 Balance -680 -340 - Medications Medications: Current Medications Amlodipine Besylate (Norvasc) 5 mg PO BID [facility] Last Admin: 11/11/16 09:19 Dose: 5 mg Budesonide (Pulmicort Respules) 0.5 mg IH [id number] [facility] Last Admin: 11/11/16 07:53 Dose: 0.5 mg Carvedilol (Coreg) 12.5 mg PO BID [facility] Last Admin: 11/11/16 09:24 Dose: 12.5 mg Famotidine (Pepcid) 20 mg PO BID [facility] Last Admin: 11/11/16 09:25 Dose: 20 mg Ferrous Sulfate (Feosol) 324 mg PO DAILY [facility] Last Admin: 11/11/16 09:25 Dose: 324 mg Folic Acid (Folic Acid) 1 mg PO DAILY [facility] Last Admin: 11/11/16 09:25 Dose: 1 mg Furosemide (Lasix) 40 mg IVP BID [facility] Last Admin: 11/11/16 10:07 Dose: 40 mg Home Med (Home Med) 0 unit PO BID [facility] Levalbuterol HCl (Xopenex) 0.63 mg IH [id number] [facility] Last Admin: 11/11/16 13:41 Dose: 0.63 mg Levalbuterol HCl (Xopenex) 0.63 mg IH Q2 PRN PRN Reason: Shortness of Breath Last Admin: 11/11/16 04:12 Dose: 0.63 mg Magnesium Oxide (Mag-Ox) 400 mg PO DAILY [facility] Last Admin: 11/11/16 09:25 Dose: 400 mg Metolazone (Zaroxolyn) 2.5 mg PO BID [facility] Stop: 11/13/16 18:01 Last Admin: 11/11/16 09:19 Dose: 2.5 mg Mycophenolate Mofetil (Cellcept Cap) 1,250 mg PO BID [facility] Last Admin: 11/11/16 09:19 Dose: 1,250 mg Sodium Bicarbonate (Sodium Bicarbonate Tab) 650 mg PO TID [facility] Last Admin: 11/11/16 09:19 Dose: 650 mg - Labs Labs: 11/11/16 05:50 11/11/16 05:50 PT 11.4 Seconds (9.9-11.8) 11/09/16 13:35 INR 1.06 (0.93-1.08) 11/09/16 13:35 APTT 31.7 Seconds (23.7-30.8) H 11/09/16 13:35
[2016-11-11] MEDS: CYCLOSPORINE 25 MG PO SCH (18:48)
[2016-11-12] MEDS: Levalbuterol 0.63 MG/3 ML Inhal Soln UD IH SCH ×4 (02:15→20:38)
[2016-11-12 05:47] LABS: HEMOGLOBIN 9.4 gm/dL (14.0-18.0); MEAN CELL VOLUME 87.6 fL (80.0-105.0); MEAN CORPUSCULAR HEMOGLOBIN 29.8 pg (25.0-35.0); MEAN CORPUSCULAR HGB CONC 34.1 g/dl (31.0-37.0); MEAN PLATELET VOLUME 8.7 fl (7.0-11.0); RBC 3.15 10^6/uL (3.5-6.1); RED CELL DISTRIBUTION WIDTH 13.8 % (11.5-14.5); WHITE BLOOD COUNT 7.2 10^3/ul (4.5-11.0)
[2016-11-12 05:54] LABS: ALB/GLOB RATIO 1.1 (1.1-1.8); ALBUMIN 4.1 g/dL (3.0-4.8)
[2016-11-12] MEDS: Budesonide 0.5 mg/2 ml Inhal Susp UD IH SCH ×2 (07:39→20:38)
[2016-11-12] MEDS: CYCLOSPORINE 25 MG PO SCH ×2 (09:23→17:48)
[2016-11-12] MEDS: metOLazone 2.5 MG TAB PO SCH ×2 (09:24→17:46)
[2016-11-12] MEDS: Magnesium Oxide 400 mg Tab UD PO SCH (09:24)
--- NOTE | 2016-11-12 10:15 | PN ---
CARDIOLOGY FOLLOWUP DATE: 11/12/2016 SUBJECTIVE: The patient's breathing is much improved. PHYSICAL EXAMINATION: VITAL SIGNS: The patient's blood pressure is 146/88 and heart rates in the 80s. NECK: Negative JVD. HEART: Reveals S1 and S2. LUNGS: Decreased breath sounds with improved aeration. EXTREMITIES: Without edema. LABORATORY DATA: Hemoglobin is 9.4. Chemistries; BUN and creatinine is 66 and 2.9. IMPRESSION: 1. Exacerbation of chronic obstructive pulmonary disease. 2. Mild congestive heart failure. 3. Status post liver transplantation. 4. Dyspnea, which is improved. PLAN: Given these findings, we will continue the Lasix. We will discontinue telemetry today. Jose Martin Mccormack MD
--- NOTE | 2016-11-12 10:42 | CP.PCM.PN ---
Subjective - Date & Time of Evaluation Date of Evaluation: 11/12/16 Time of Evaluation: 10:39 - Subjective Subjective: Follow up Nephrology Consultation: Assessment: Improved Acute Kidney Injury (N17.9) suspect it likely due to venous congestion and cardio-renal syndrome due to acute on chronic sys CHF (now with improved LVEF) Bilateral pleural effusions Chronic Kidney Disease (N18.3) Stage 3 with 790 mg proteinuria (R80.9) may be due to chronic usage of cyclosporine Anemia (D64.9), HTN (I12.9) hx of liver transplantation in 2002 abnormal SPEP, elevated Alk phos Plan No acute need for renal replacement therapy at this time, continue with lasix 40 IV bid and PO metolazone 2.5 mg bid. oral fluid restriction to 1L/day. repeat CXR in AM Hypertension control with meds as ordered. Patient not on ACEI/ARB due to MARLENY Monitor Input/Output, daily weights and renal function with basic metabolic panel continue with sodium Bicarb supplements labs sent for kappa/lambda ratio Dose meds/antibiotics for reduced GFR. Avoid fleets enema/magnesium based laxatives. Avoid nephrotoxins/NSAIDs/ iodinated contrast (unless needed emergently) Glycemic control Further work up/management for CHF as per primary team and cardiology. Immunosuppressive meds for liver Tx as per GI. ? check cyclosporine level Thanks for allowing me to participate in care of your patient. Will follow patient with you. Please call if any Qs. d/w primary team and cardiology. Dr Bhavesh Church Office: [phone] Chief Complaint; Shortness of breath better Reason for consult: elevated creatinine and MARLENY HPI: Pt is a 61 y/o M with hx of liver transplant in 2002 and subsequent hx of HTN, CKD 3 (baseline cr 1.5-1.7), chronic systolic CHF admitted recently 2 weeks ago with CHF exacerbation and MARLENY with elevated creatinine 2.3 mg/dL which improved to 2.0 at d/c with IV lasix. he came back with worsening SOB and CHF exacerbation. also with MARLENY with creatinine 3.2 mg/dL his liver Tx was managed with cyclosporine but also added cellcept since mar 2016 when noted to have high alkaline phos. Subjective: Denies chest pain, palpitation, improved shortness of breath, denies much leg swelling. he feels making more urine. improved cough. ROS: Cardiovascular: No chest pain. improved shortness of breath. No palpitations. Pulmonary: better withh shortness of breath and some dry cough. Gastrointestinal: denies abdominal pain No nausea. No vomiting. Denies change in bowel habits. Denies Bleeding Genitourinary: No Change in force of strain when urinating. No increase in urinary frequency. No pain while urinating. Denies blood in urine. Neurological: Denies headaches. No dizziness. Denies loss of balance. Denies weakness, denies tingling/numbness All other negative Physical Examination: General Appearance: in no acute respiratory distress, co-operative . Vitals reviewed and noted as below Head; Atraumatic, normocephalic ENT: no ulcers no thrush. Tongue is midline. Oropharynx: no rash or ulcers. EYES: Pupils are equal, round and reactive to light accommodation. Eye muscles and extraocular movement intact. Sclera is icteric. Neck; supple no lymphadenopathy, no thyromegaly or bruit Lungs: improved respiratory rate/effort. able to speak in full sentences. Breath sounds bilateral decreased at b/l bases although improved since yesterday. Heart: Normal rate. s1s2 normal. No rub or gallop. Extremities: no edema. No varicose veins Neurological: Patient is alert, awake and oriented to person, place and time. No focal deficit. Strength bilateral appropriate and equal Skin: Warm and dry. Normal turgor. No rash. Palpitation: Normal elasticity for age Abdomen: Abdomen is soft. Bowel sounds +. There is no abdominal tenderness, no guarding/rigidity but appear to have hepatomegaly Psych: normal insight and normal affect/mood MSK: no joint tenderness or swelling. Digits and nails normal, no deformity : kidney or bladder not palpable Labs/imaging/EKG reviewed. Past medical history, past surgical history, family history, social history, allergy reviewed and noted as below Family hx: no hx of CKD. 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 + Objective - Vital Signs/Intake and Output Vital Signs (last 24 hours): Temp Pulse Resp BP Pulse Ox 98 F 87 20 154/94 H 95 08/03/17 05:23 11/12/16 09:23 11/12/16 05:23 11/12/16 09:32 11/12/16 05:23 Intake and Output: 11/12/16 11/12/16 06:59 18:59 Intake Total 360 Output Total 400 Balance -40 - Medications Medications: Current Medications Amlodipine Besylate (Norvasc) 5 mg PO BID [facility] Last Admin: 11/12/16 09:23 Dose: 5 mg Budesonide (Pulmicort Respules) 0.5 mg IH [id number] [facility] Last Admin: 11/12/16 07:39 Dose: 0.5 mg Carvedilol (Coreg) 12.5 mg PO BID [facility] Last Admin: 11/12/16 09:18 Dose: 12.5 mg Famotidine (Pepcid) 20 mg PO BID [facility] Last Admin: 11/12/16 09:23 Dose: 20 mg Ferrous Sulfate (Feosol) 324 mg PO DAILY [facility] Last Admin: 11/12/16 09:18 Dose: 324 mg Folic Acid (Folic Acid) 1 mg PO DAILY [facility] Last Admin: 11/12/16 09:19 Dose: 1 mg Furosemide (Lasix) 40 mg IVP Q12 [facility] Home Med (Home Med) 0 unit PO BID [facility] Last Admin: 11/12/16 09:23 Dose: 1 unit Levalbuterol HCl (Xopenex) 0.63 mg IH [id number] [facility] Last Admin: 11/12/16 07:39 Dose: 0.63 mg Levalbuterol HCl (Xopenex) 0.63 mg IH Q2 PRN PRN Reason: Shortness of Breath Last Admin: 11/11/16 04:12 Dose: 0.63 mg Magnesium Oxide (Mag-Ox) 400 mg PO DAILY [facility] Last Admin: 11/12/16 09:24 Dose: 400 mg Metolazone (Zaroxolyn) 2.5 mg PO BID [facility] Stop: 11/13/16 18:01 Last Admin: 11/12/16 09:24 Dose: 2.5 mg Mycophenolate Mofetil (Cellcept Cap) 1,250 mg PO BID [facility] Last Admin: 11/12/16 09:24 Dose: 1,250 mg Sodium Bicarbonate (Sodium Bicarbonate Tab) 650 mg PO TID [facility] Last Admin: 11/12/16 09:23 Dose: 650 mg - Labs Labs: 11/12/16 05:10 11/12/16 05:10 PT 11.4 Seconds (9.9-11.8) 11/09/16 13:35 INR 1.06 (0.93-1.08) 11/09/16 13:35 APTT 31.7 Seconds (23.7-30.8) H 11/09/16 13:35
--- NOTE | 2016-11-12 11:38 | PN ---
DATE: 11/11/2016 SUBJECTIVE: When I saw him, he was sitting comfortably this morning in bed. He slept very well last night. This is the first day he is feeling well since he has been here. Denies short of breath or chest pain. He actually walked little bit for the first time with physical therapy yesterday. PHYSICAL EXAMINATION: VITAL SIGNS: Temperature 98, 85 pulse, 146/88 blood pressure, 20 respiratory rate, 95% O2 saturation on nasal cannula. HEENT: Head is atraumatic and normocephalic. Throat is dry. NECK: Supple. HEART: Regular rate. LUNGS: Decreased breath sounds. No wheezes today, yesterday there were lots of wheezes. He had Solu-Medrol 125 yesterday which did a good job with the bronchospasm. ABDOMEN: Soft, nontender. Positive bowel sounds. EXTREMITIES: No edema. MEDICATIONS: He is currently on CellCept, Coreg, Feosol, folic acid, Lasix, magnesium, Norvasc, Pepcid, Pulmicort, sodium bicarb, Xopenex, and Zaroxolyn. LABORATORY DATA: He has a 136 sodium, potassium 4.5, BUN is 66 a little bit high, creatinine is 2.9. GFR is 22. Sugar is 168, calcium is 9. Total bilirubin is 1.4 better. AST is 58, ALT is 40, alkaline phosphatase is 764. BNP is going up to 2830 and his total protein is 7.8. He has a 7.2 white count, 9.4 hemoglobin, 27.6 hematocrit with a 219 platelets. ASSESSMENT AND PLAN: This is the first day, he is doing well. He walked a little bit with help yesterday, I think one more day, would diurese him before we get him out would be good, he is still feeling a little bit weak and just trying to eat better. He is here for shortness of breath, CHF, COPD, bronchospasm and infiltrates, renal insufficiency, status post liver transplant, pleural effusions. He is being seen by renal, cardio, pulmonary and will be for one more day of IV Lasix, diurese him little bit more. He does well walking, we will discharge him tomorrow home on Wednesday. Check his labs tomorrow, get him out of bed to chair, more walking and if he does well tomorrow, it could be the discharge day. Giovanny Elliott DO
--- NOTE | 2016-11-12 11:55 | PN ---
PULMONARY NOTE DATE: 11/12/2016 SUBJECTIVE: The patient appears much more comfortable this morning. He is not short of breath at rest. PHYSICAL EXAMINATION: VITAL SIGNS: Temperature is 98.0, pulse 85, respirations 18/20, blood pressure 146/88. Oxygen saturation on nasal cannula is 95-97%. HEENT: Normocephalic, atraumatic. NECK: No JVD. CARDIOVASCULAR: Positive S1, S2. Positive S3 gallop. LUNGS: Decreased breath sounds at the bases with crackles. Less rhonchi. No wheezing this morning. EXTREMITIES: Less edema. No cyanosis, no clubbing. Calves are nontender to palpation. GASTROINTESTINAL: Abdomen is soft, nontender, and nondistended. Bowel sounds are positive. SKIN: No acute rash. NEUROLOGIC: Exam is limited at the present time. IMPRESSION: 1. Recurrent congestive heart failure. 2. Chronic pleural effusions. 3. Acute bronchitis. 4. Anemia. 5. Renal insufficiency. PLAN: The patient appears much more comfortable this morning. He is not short of breath at rest. He states he is feeling much better - compared to yesterday. I did discuss the case with the night nurse at length. The night nurse stated that the patient had a very good night. On physical exam, his bronchospasm is significantly less. In addition, the oxygen saturation on nasal cannula is now 95-97%. I will continue with the current nebulizer treatments and inhaled steroids for now. I would continue with the treatment for congestive heart failure as per Cardiology. Input by Dr. Mccormack is noted. The patient remains on Lasix/afterload reduction. The clinical status of the patient has certainly improved - compared to yesterday. I will discuss the above with Dr. Elliott. Terry Nick MD MTDD
[2016-11-13] MEDS: Levalbuterol 0.63 MG/3 ML Inhal Soln UD IH SCH ×3 (01:44→14:07)
[2016-11-13 06:19] VITALS: O2SAT 93
[2016-11-13 07:07] LABS: HEMOGLOBIN 9.1 gm/dL (14.0-18.0); MEAN CELL VOLUME 88.9 fL (80.0-105.0); MEAN CORPUSCULAR HEMOGLOBIN 29.7 pg (25.0-35.0); MEAN CORPUSCULAR HGB CONC 33.5 g/dl (31.0-37.0); MEAN PLATELET VOLUME 8.9 fl (7.0-11.0); RBC 3.06 10^6/uL (3.5-6.1); WHITE BLOOD COUNT 5.9 10^3/ul (4.5-11.0)
[2016-11-13 07:20] LABS: ALB/GLOB RATIO 1.3 (1.1-1.8); CALCIUM 8.8 mg/dL (8.4-10.5)
[2016-11-13] MEDS: Budesonide 0.5 mg/2 ml Inhal Susp UD IH SCH (07:51)
--- NOTE | 2016-11-13 08:25 | PN ---
DATE: 11/13/2016 SUBJECTIVE: The patient appears very comfortable this morning. He is not short of breath at rest. PHYSICAL EXAMINATION: VITAL SIGNS: Temperature 98.5, pulse 85, respirations 18, blood pressure 122/83. Oxygen saturation on nasal cannula is 93% to 95%. HEENT: Normocephalic, atraumatic. NECK: No JVD. CARDIOVASCULAR: Positive S1, S2. Positive S3 gallop. LUNGS: Decreased breath sounds at the bases with crackles. Much less rhonchi. No wheezing. EXTREMITIES: Less edema. No cyanosis, no clubbing. Calves are nontender to palpation. GASTROINTESTINAL: Abdomen is soft, nontender, and nondistended. Bowel sounds are positive. SKIN: No acute rash. NEUROLOGIC: Limited at the present time. IMPRESSION: 1. Recurrent congestive heart failure. 2. Chronic pleural effusions. 3. Acute bronchitis. 4. Anemia. 5. Renal insufficiency. PLAN: The patient appears much more comfortable this morning. He is not short of breath at rest. He states he is feeling much, much better overall. I did discuss the case with the night nurse at length. The patient had a very good night. On physical exam, his bronchospasm continues to resolve. I will continue with the current nebulizer treatments and inhaled steroids for now. Inputs by cardiology and renal are noted. Clinical status of the patient is definitely improved. I will discuss the above with Dr. Elliott. Terry Nick MD MTDYan
[2016-11-13] MEDS: metOLazone 2.5 MG TAB PO SCH (09:05)
[2016-11-13] MEDS: Magnesium Oxide 400 mg Tab UD PO SCH (09:06)
[2016-11-13] MEDS: CYCLOSPORINE 25 MG PO SCH (09:08)
--- NOTE | 2016-11-13 10:03 | RAD ---
HISTORY: COMPARISON: 11/09/2016. TECHNIQUE: Upper Chest PA and lateral FINDINGS: LINES AND TUBES: None. LUNG AND PLEURA: There is a persistent moderate right pleural effusion and interval decrease in size of left pleural effusion with residual small effusion. The upper lobes are clear. HEART AND MEDIASTINUM: The heart is not enlarged. The hilar and mediastinal contours are stable. SKELETAL STRUCTURES: The bony structures are within normal limits for the patient's age. VISUALIZED UPPER ABDOMEN: Normal. OTHER FINDINGS: None. IMPRESSION: 1. Improving left pleural effusion with residual small pleural effusion. 2. Persistent moderate right pleural effusion.
--- NOTE | 2016-11-13 10:40 | PN ---
DATE: 11/13/2016 SUBJECTIVE: The patient's breathing is back to baseline and he is able walk without symptoms. PHYSICAL EXAMINATION: VITAL SIGNS: Blood pressure is 148/84, heart rate is in the 80s. NECK: Negative JVD. LUNGS: Clear to auscultation. HEART: Reveal S1, S2. EXTREMITIES: Without edema. LABORATORY DATA: Hemoglobin is 9.1. Chemistries, BUN and creatinine are 71 and 2.8. IMPRESSION: 1. Resolution of dyspnea. 2. Congestive heart failure is resolved. 3. Status post liver transplantation. 4. Renal insufficiency. Given these findings, the patient is doing well. We will continue on p.o. Lasix. From a cardiac perspective, the patient can be discharged. Follow up and instructions have been given to the patient. Jose Martin Mccormack MD
[2016-11-13 12:00] VITALS: BP 140/81; PULSE 77; RESP 19; TEMP 97.4
--- NOTE | 2016-11-13 12:42 | DS ---
HISTORY OF PRESENT ILLNESS: He was here for congestive heart failure, acute kidney injury, shortness of breath, dyspnea on exertion, actually his O2 saturation on room air went to 88%. When he started to walk, it dropped to 87%, with oxygen 2 liters it was only about 90%. He gets short of breath very easily and I think he needs oxygen at home and hopefully we can arrange that for him. Besides the shortness of breath, the lung disease, COPD, questionable infiltrates, pleural effusions, he has a status post liver transplant. He is being seen by cardiopulmonary and renal and today is the first day actually he seems a little bit improved. We will try and discharge him today. PHYSICAL EXAMINATION: VITAL SIGNS: His vital signs are 98.5 temp, 85 pulse, 142/83 blood pressure, 20 respiratory rate, and 93% O2 saturations on 2 liters nasal cannula. HEENT: His head is atraumatic and normocephalic. HEART: Regular rate. LUNGS: Have decreased breath sounds, but they are clear. No wheezes or rhonchi, like they were a couple of days ago. ABDOMEN: Soft and nontender. Positive bowel sound. EXTREMITIES: Have no edema and he had edema in both extremities and the ankles, +1/4 pitting a couple of days ago. So it did improve, but he is not out of the baxter yet. MEDICATIONS: He is going to go home with CellCept, Coreg, Feosol, folic acid, Lasix 40 twice a day, magnesium oxide, Norvasc, Pepcid, Pulmicort inhaler, sodium bicarb, Xopenex inhaler, and Zaroxolyn 2.5 twice a day. He is also going to be on fluid restriction at 1800 mL a day and he understands this. He is going to see me in the office in the next 5-7 days. He knows he should always call me or do a house call. He is not looking as good as the last couple of times I have seen him. I think he is starting to fail and he might end up on dialysis one day. He understands that too. LABORATORY DATA: His blood test, he is a 5.9 white count, 9.1 hemoglobin, 27.2 hematocrit, and 217platelets. Sodium 138, potassium 4.2, BUN is 71, creatinine is 2.8. GFR is 23. Sugar is 99, calcium is 8.8, total bilirubin is 1.2. AST is 83, ALT is 45, alkaline phosphatase is 701. His BMP was as high as 2830. Total protein 7.1. ASSESSMENT AND PLAN: He was here with congestive heart failure, chronic obstructive pulmonary disease, acute kidney injury, status post liver transplant in the past. He is now oxygen dependent. I believe with a very low O2 saturation of 88% on room air and 87% with exertion. Hopefully, he will stay healthy and stay out of the hospital. I will see him in the office in a week. Giovanny Elliott DO
--- NOTE | 2016-11-13 14:12 | CP.PCM.PN ---
Subjective - Date & Time of Evaluation Date of Evaluation: 11/13/16 Time of Evaluation: 14:09 - Subjective Subjective: Follow up Nephrology Consultation: Assessment: Improved Acute Kidney Injury (N17.9) suspect it likely due to venous congestion and cardio-renal syndrome due to acute on chronic sys CHF (now with improved LVEF) Bilateral pleural effusions Chronic Kidney Disease (N18.3) Stage 3 with 790 mg proteinuria (R80.9) may be due to chronic usage of cyclosporine Anemia (D64.9), HTN (I12.9) hx of liver transplantation in 2002 abnormal SPEP, elevated Alk phos Plan No acute need for renal replacement therapy at this time, continue with diuretics. oral fluid restriction to 4763-8862 mL/day. Hypertension control with meds as ordered. Patient not on ACEI/ARB due to MARLENY Monitor Input/Output, daily weights and renal function with basic metabolic panel continue with sodium Bicarb supplements labs sent for kappa/lambda ratio Dose meds/antibiotics for reduced GFR. Avoid fleets enema/magnesium based laxatives. Avoid nephrotoxins/NSAIDs/ iodinated contrast (unless needed emergently) Glycemic control Further work up/management for CHF as per primary team and cardiology. Immunosuppressive meds for liver Tx as per GI. Thanks for allowing me to participate in care of your patient. Please call if any Qs. pt planned for d/c home today. stable from renal perspective. d/w f/up in office with me next week. Dr Bhavesh Church Office: [phone] Chief Complaint; Shortness of breath better Reason for consult: elevated creatinine and MARLENY HPI: Pt is a 61 y/o M with hx of liver transplant in 2002 and subsequent hx of HTN, CKD 3 (baseline cr 1.5-1.7), chronic systolic CHF admitted recently 2 weeks ago with CHF exacerbation and MARLENY with elevated creatinine 2.3 mg/dL which improved to 2.0 at d/c with IV lasix. he came back with worsening SOB and CHF exacerbation. also with MARLENY with creatinine 3.2 mg/dL his liver Tx was managed with cyclosporine but also added cellcept since mar 2016 when noted to have high alkaline phos. Subjective: Denies chest pain, palpitation, resolved shortness of breath, denies much leg swelling. he feels making more urine. improved cough. ROS: Cardiovascular: No chest pain. improved shortness of breath. No palpitations. Pulmonary: better withhshortness of breath and some dry cough. Gastrointestinal: denies abdominal pain No nausea. No vomiting. Denies change in bowel habits. Denies Bleeding Genitourinary: No Change in force of strain when urinating. No increase in urinary frequency. No pain while urinating. Denies blood in urine. Neurological: Denies headaches. No dizziness. Denies loss of balance. Denies weakness, denies tingling/numbness All other negative Physical Examination: General Appearance: in no acute respiratory distress, co-operative . Vitals reviewed and noted as below Head; Atraumatic, normocephalic ENT: no ulcers no thrush. Tongue is midline. Oropharynx: no rash or ulcers. EYES: Pupils are equal, round and reactive to light accommodation. Eye muscles and extraocular movement intact. Sclera is icteric. Neck; supple no lymphadenopathy, no thyromegaly or bruit Lungs: normal respiratory rate/effort. able to speak in full sentences. Breath sounds decreased at Rt base. much improved at left abse Heart: Normal rate. s1s2 normal. No rub or gallop. Extremities: no edema. No varicose veins Neurological: Patient is alert, awake and oriented to person, place and time. No focal deficit. Strength bilateral appropriate and equal Skin: Warm and dry. Normal turgor. No rash. Palpitation: Normal elasticity for age Abdomen: Abdomen is soft. Bowel sounds +. There is no abdominal tenderness, no guarding/rigidity but appear to have hepatomegaly Psych: normal insight and normal affect/mood MSK: no joint tenderness or swelling. Digits and nails normal, no deformity : kidney or bladder not palpable Labs/imaging/EKG reviewed. Past medical history, past surgical history, family history, social history, allergy reviewed and noted as below Family hx: no hx of CKD. 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 Overall appears improved Objective - Vital Signs/Intake and Output Vital Signs (last 24 hours): Temp Pulse Resp BP Pulse Ox 97.4 F L 77 19 140/81 93 L 11/13/16 12:00 11/13/16 12:00 11/13/16 12:00 11/13/16 12:00 11/13/16 07:00 Intake and Output: 11/13/16 11/13/16 06:59 18:59 Intake Total 120 Output Total 450 Balance -330 - Medications Medications: Current Medications Amlodipine Besylate (Norvasc) 5 mg PO BID [facility] Last Admin: 11/13/16 09:07 Dose: 5 mg Budesonide (Pulmicort Respules) 0.5 mg IH [id number] [facility] Last Admin: 11/13/16 07:51 Dose: 0.5 mg Carvedilol (Coreg) 12.5 mg PO BID [facility] Last Admin: 11/13/16 09:06 Dose: 12.5 mg Famotidine (Pepcid) 20 mg PO BID [facility] Last Admin: 11/13/16 09:06 Dose: 20 mg Ferrous Sulfate (Feosol) 324 mg PO DAILY [facility] Last Admin: 11/13/16 09:07 Dose: 324 mg Folic Acid (Folic Acid) 1 mg PO DAILY [facility] Last Admin: 11/13/16 09:06 Dose: 1 mg Furosemide (Lasix) 40 mg IVP Q12 [facility] Last Admin: 11/13/16 09:07 Dose: 40 mg Home Med (Home Med) 0 unit PO BID [facility] Last Admin: 11/13/16 09:08 Dose: 1 unit Levalbuterol HCl (Xopenex) 0.63 mg IH [id number] [facility] Last Admin: 11/13/16 14:07 Dose: Not Given Levalbuterol HCl (Xopenex) 0.63 mg IH Q2 PRN PRN Reason: Shortness of Breath Last Admin: 11/11/16 04:12 Dose: 0.63 mg Magnesium Oxide (Mag-Ox) 400 mg PO DAILY [facility] Last Admin: 11/13/16 09:06 Dose: 400 mg Metolazone (Zaroxolyn) 2.5 mg PO BID [facility] Stop: 11/13/16 18:01 Last Admin: 11/13/16 09:05 Dose: 2.5 mg Mycophenolate Mofetil (Cellcept Cap) 1,250 mg PO BID [facility] Last Admin: 11/13/16 09:05 Dose: 1,250 mg Sodium Bicarbonate (Sodium Bicarbonate Tab) 650 mg PO TID [facility] Last Admin: 11/13/16 09:05 Dose: 650 mg - Labs Labs: 11/13/16 06:15 11/13/16 06:15 PT 11.4 Seconds (9.9-11.8) 11/09/16 13:35 INR 1.06 (0.93-1.08) 11/09/16 13:35 APTT 31.7 Seconds (23.7-30.8) H 11/09/16 13:35
--- NOTE | 2016-11-14 23:49 | DS ---
SUBJECTIVE: The patient is doing great. The urologist said he could be discharged. He had a kidney stone and the pain is now gone. He is doing much better. PHYSICAL EXAMINATION: VITAL SIGNS: His vital signs look good. He has a 97.6 temp, 74 pulse, 141/78 blood pressure, 18 respiratory rate and 95% O2 sat on room air. HEENT: Head is atraumatic and normocephalic. HEART: Regular rate. LUNGS: Clear to auscultation. ABDOMEN: Soft and nontender. No CVA tenderness. Positive bowel sounds. EXTREMITIES: No edema. MEDICATIONS: He is going to go home on his regular medications. LABORATORY DATA: His labs look good. ASSESSMENT AND PLAN: He understands the plan. Discussed with the at length. He had a kidney stone, history of congestive heart failure, chronic obstructive pulmonary disease, renal insufficiency and old liver transplant history. He will see me in a week. He has a medication at home same as he was getting here. Giovanny Elliott DO
== END 2016-11-13 15:28 | disposition home or self-care (01) | DRG 291 ==
LOC: ED 14:23 → ERH 17:36 → 2RSO 20:23 → OBSVTOIN 11-10 11:21
PROVIDERS: ADMIT Family Medicine; ATTEND Family Medicine
PROC: 3E0F7GC Introduction of Other Therapeutic Substance into Respiratory Tract, Via Natural or Artificial Opening (ICD-10-PCS; principal; 2016-11-10)
DX: I13.0 Hypertensive heart and chronic kidney disease with heart failure and stage 1 through stage 4 chronic kidney disease, or unspecified chronic kidney disease (principal); I50.23 Acute on chronic systolic (congestive) heart failure; N17.9 Acute kidney failure, unspecified; Z94.4 Liver transplant status; N18.3 Chronic kidney disease, stage 3 (moderate); K74.60 Unspecified cirrhosis of liver; J44.1 Chronic obstructive pulmonary disease with (acute) exacerbation; J44.0 Chronic obstructive pulmonary disease with (acute) lower respiratory infection; D64.9 Anemia, unspecified; J20.9 Acute bronchitis, unspecified; F10.10 Alcohol abuse, uncomplicated; Z87.442 Personal history of urinary calculi

== ENCOUNTER 2016-11-13 22:26 | Observation (INO) | payer MEDICARE, BC ==
[2016-11-13 23:03] VITALS: BMI 21.7
--- NOTE | 2016-11-13 23:25 | ED PDOC ---
Arrival/HPI - General Chief Complaint: Back Pain Time Seen by Provider: 11/13/16 23:21 Historian: Patient - History of Present Illness Narrative History of Present Illness (Text): 11/13/16 23:24 61 y/o male, pmh including chf/renal failure/cirrhosis s/p liver transplant 2011 , allergic to tacrolimus, biba c/o lower back pain started tonight. Pt. stated that he has lower back pain tonight, sharp sensation, feels tight at the back which radiating to the both flank region, admits urinary symptoms, no fever or chills, no nausea or vomiting, no nausea or vomiting, no chills, no night sweat , no numbness or tingling, no other medical or psychological complaints. Past Medical History - Provider Review Nursing Documentation Reviewed: Yes - Infectious Disease Hx of Infectious Diseases: None - Cardiac Hx Cardiac Disorders: Yes Hx Peripheral Edema: Yes - Pulmonary Hx Respiratory Disorders: No (denies) - Neurological Hx Neurological Disorder: No - HEENT Hx HEENT Disorder: No (denies) - Renal Hx Renal Disorder: Yes - Endocrine/Metabolic Hx Endocrine Disorders: No (denies) - Hematological/Oncological Hx Blood Disorders: Yes Hx Cirrhosis: Yes - Integumentary Hx Dermatological Disorder: No (denies) - Musculoskeletal/Rheumatological Hx Musculoskeletal Disorders: No (denies) - Gastrointestinal Hx Gastrointestinal Disorders: Yes - Genitourinary/Gynecological Hx Genitourinary Disorders: No (denies) - Psychiatric Hx Psychophysiologic Disorder: No (denies) Hx Substance Use: No - Surgical History Hx Liver Transplant: Yes (2002) - Anesthesia Hx Anesthesia: Yes Family/Social History - Physician Review Nursing Documentation Reviewed: Yes Family/Social History: Unknown Family HX Smoking Status: Never Smoked Hx Alcohol Use: No Hx Substance Use: No Allergies/Home Meds Allergies/Adverse Reactions: Allergies tacrolimus [From Prograf] Allergy (Verified 11/13/16 23:17) ANAPHYLAXIS milk Adverse Reaction (Unknown, Verified 10/27/16 18:22) VOMITING Home Medications: Home Meds Medication Instructions Recorded Confirmed Ferrous Sulfate 65 mg PO DAILY 07/04/15 11/13/16 Magnesium Oxide [Magnesium] 400 mg PO DAILY 07/04/15 11/13/16 Folic Acid 1 mg PO DAILY 07/15/15 11/13/16 Famotidine [Heartburn Prevention] 20 mg PO BID 05/27/16 11/13/16 Mycophenolate Mofetil [Cellcept] 1,250 mg PO BID 05/27/16 11/13/16 Carvedilol [Coreg] 12.5 mg PO BID 09/17/16 11/13/16 amLODIPine [Norvasc] 5 mg PO BID 09/17/16 11/13/16 Cyclosporine, Modified [Neoral] 25 mg PO BID 10/27/16 11/13/16 Sodium Bicarbonate Tab 650 mg PO TID 10/27/16 11/13/16 Furosemide [Lasix] 40 mg PO BID 11/13/16 11/13/16 Review of Systems - Review of Systems Constitutional: absent: Fatigue, Fevers Eyes: absent: Vision Changes ENT: absent: Hearing Changes Respiratory: absent: SOB, Cough Cardiovascular: absent: Chest Pain Gastrointestinal: absent: Abdominal Pain, Nausea, Vomiting Genitourinary Male: Frequency. absent: Dysuria, Hematuria, Urinary Output Changes Musculoskeletal: Back Pain, Myalgias. absent: Arthralgias, Neck Pain, Joint Swelling Skin: absent: Rash, Pruritis Physical Exam Vital Signs Reviewed: Yes Vital Signs Temp Pulse Resp BP Pulse Ox 11/14/16 03:00 79 18 125/67 96 11/14/16 01:00 80 18 125/68 95 11/13/16 23:12 98.0 F 82 18 123/62 94 L Temperature: Afebrile Blood Pressure: Normal Pulse: Regular Respiratory Rate: Normal Appearance: Positive for: Well-Appearing, Non-Toxic Pain Distress: Severe Mental Status: Positive for: Alert and Oriented X 3 - Systems Exam Head: Present: Atraumatic, Normocephalic Pupils: Present: PERRL Extroacular Muscles: Present: EOMI Conjunctiva: Present: Normal Mouth: Present: Moist Mucous Membranes Neck: Present: Normal Range of Motion Respiratory/Chest: Present: Clear to Auscultation, Good Air Exchange. No: Respiratory Distress, Accessory Muscle Use Cardiovascular: Present: Regular Rate and Rhythm, Normal S1, S2. No: Murmurs Abdomen: Present: Tenderness (+cva tenderness), Normal Bowel Sounds. No: Distention, Peritoneal Signs, Rebound, Guarding Back: Present: Normal Inspection, CVA Tenderness, Other (no rash). No: Midline Tenderness, Paraspinal Tenderness, Pain with Leg Raise Upper Extremity: Present: Normal Inspection. No: Cyanosis, Edema Lower Extremity: Present: Normal Inspection. No: Edema Neurological: Present: GCS=15, Speech Normal, Motor Func Grossly Intact, Memory Normal Skin: Present: Warm, Dry, Normal Color. No: Rashes Psychiatric: Present: Alert, Oriented x 3, Normal Insight, Normal Concentration Medical Decision Making ED Course and Treatment: 11/13/16 23:25 -labs/ua -ekg -CT abdomen and pelvis/lumbar spine -IV morphine 4mg -observe and reassess 11/14/16 02:49 -Chest x-ray result reviewed from early this week -Labs show no acute findings except bun 72 (chronic), creatine 2.9 (chronic), BNP 5100 from 2830, chronically elevation LFT -UA show no UTI -CT abdomen show 7mm stone in the left kidney's renal pelvis and ureter junction which is causing obstruction as I spoke and confirmed with the AD radiologist Dr. Rueda. -Flomax and strainer ordered -I discussed with Dr. Waterman and suggest to observe the patient over night as the patient has chronic kidney disease with new onset of the stone. 11/14/16 02:55 -I spoke to Dr. Elliott, discussed about the case/labs/radiology result, agreed on the observation plan with DR. Green on the consult. -Dr. Waterman will put in the admission order. -EKG: NSR @ 82 BPM, no ST elevation or depression, T wave inversion noted on lead I/II/V4-V6 - Lab Interpretations Lab Results: 11/13/16 22:45 11/13/16 22:45 Lab Results 11/14/16 02:30: Urine Color Yellow, Urine Appearance Slight-cloudy, Urine pH 6.0 , Ur Specific [place] 1.015, Urine Protein 30 H, Urine Glucose (UA) Negative, Urine Ketones Negative, Urine Blood Moderate H, Urine Nitrate Negative, Urine Bilirubin Negative, Urine Urobilinogen 0.2, Ur Leukocyte Esterase Negative, Urine RBC 10 - 15, Urine WBC 1 - 3, Ur Epithelial Cells 0 - 2 11/13/16 22:45: WBC 6.4, RBC 3.24 L, Hgb 10.0 L, Hct 28.7 L, MCV 88.6, MCH 30.9 , MCHC 34.8, RDW 13.6, Plt Count 275, MPV 9.5, Gran % 66.3, Lymph % (Auto) 24.2 , [place] % (Auto) 8.6 H, Eos % (Auto) 0.6 L, Baso % (Auto) 0.3, Gran # 4.25, Lymph # 1.6, [place] # 0.6, Eos # 0.0, Baso # 0.02 11/13/16 22:45: Sodium 139, Potassium 4.3, Chloride 94 L, Carbon Dioxide 27, Anion Gap 22 H, BUN 72 H, Creatinine 2.9 H, Est GFR ( Amer) 27, Est GFR ( Non-Af Amer) 22, Random Glucose 113 H, Calcium 8.9, Total Bilirubin 1.4 H, AST 112 H, ALT 63 H, Alkaline Phosphatase 726 H, NT-Pro-B Natriuret Pep 5100 H, Total Protein 7.9, Albumin 4.2, Globulin 3.7, Albumin/Globulin Ratio 1.1, Amylase 49 Interpretation: Abnormal lab values (bun 72, creatine 2.9, BNP 5100, chronically elevation LFT) - RAD Interpretation Radiology Orders: 11/13/16 23:43 ABDOMEN & PELVIS [ABD & PELVIS W/O PO OR IV CONT] [CT] Stat Equipment Validation Engineer: Radiologist - EKG Interpretation EKG Interpretation (Text): 11/14/16 02:57 NSR @ 82 BPM, no ST elevation or depression, T wave inversion noted on lead I/II /V4-V6 Interpreted by ED Physician: Yes Type: 12 lead EKG - Medication Orders Current Medication Orders: Discontinued Medications Amlodipine Besylate (Norvasc) 5 mg PO BID [facility] Last Admin: 11/14/16 10:24 Dose: 5 mg Carvedilol (Coreg) 12.5 mg PO BID [facility] Last Admin: 11/14/16 10:23 Dose: 12.5 mg Cyclosporine (Sandimmune) 25 mg PO BID [facility] Famotidine (Pepcid) 20 mg PO BID [facility] Last Admin: 11/14/16 10:24 Dose: 20 mg Ferrous Sulfate (Feosol Liq) 65 mg PO DAILY [facility] Last Admin: 11/14/16 10:23 Dose: 65 mg Folic Acid (Folic Acid) 1 mg PO DAILY [facility] Last Admin: 11/14/16 10:24 Dose: 1 mg Furosemide (Lasix) 40 mg IVP BID [facility] Last Admin: 11/14/16 10:27 Dose: 40 mg Home Med (Home Med) 1 unit PO BID [facility] Magnesium Oxide (Mag-Ox) 400 mg PO DAILY [facility] Last Admin: 11/14/16 10:24 Dose: 400 mg Morphine Sulfate (Morphine) Confirm Administered Dose 4 mg .ROUTE .STK-MED ONE Stop: 11/13/16 23:30 Last Admin: 11/13/16 23:31 Dose: 4 mg Mycophenolate Mofetil (Cellcept Cap) 1,250 mg PO BID [facility] Sodium Bicarbonate (Sodium Bicarbonate Tab) 650 mg PO TID [facility] Last Admin: 11/14/16 10:24 Dose: 650 mg Tamsulosin HCl (Flomax) 0.4 mg PO STAT STA Stop: 11/14/16 02:02 Last Admin: 11/14/16 02:31 Dose: 0.4 mg - 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 Disposition/Present on Arrival - Present on Arrival Any Indicators Present on Arrival: No History of DVT/PE: No History of Uncontrolled Diabetes: No Urinary Catheter: No History of Decub. Ulcer: No History Surgical Site Infection Following: None - Disposition Have Diagnosis and Disposition been Completed?: Yes Diagnosis: Renal failure, Ureter colic Disposition: HOSPITALIZED Disposition Time: 02:06 Patient Plan: Observation Condition: STABLE
[2016-11-13] MEDS ORDERED: Morphine 4 mg/ml ISec ONE (23:29)
[2016-11-13 23:32] LABS: BASO # 0.02 K/mm3 (0.0-2.0); BASO % 0.3 % (0.0-3.0); EOS % 0.6 % (1.5-5.0); GRAN # 4.25 (1.4-6.5); GRAN % 66.3 % (50.0-68.0); LYMPH # 1.6 (1.2-3.4); LYMPH % 24.2 % (22.0-35.0); MEAN CELL VOLUME 88.6 fL (80.0-105.0); MEAN CORPUSCULAR HEMOGLOBIN 30.9 pg (25.0-35.0); MEAN CORPUSCULAR HGB CONC 34.8 g/dl (31.0-37.0); MEAN PLATELET VOLUME 9.5 fl (7.0-11.0); MONO # 0.6 (0.1-0.6); MONO % 8.6 % (1.0-6.0); PLATELET COUNT 275 10^3/uL (120.0-450.0); RBC 3.24 10^6/uL (3.5-6.1); RED CELL DISTRIBUTION WIDTH 13.6 % (11.5-14.5); WHITE BLOOD COUNT 6.4 10^3/ul (4.5-11.0)
[2016-11-13 23:40] LABS: ALB/GLOB RATIO 1.1 (1.1-1.8); ALBUMIN 4.2 g/dL (3.0-4.8); CALCIUM 8.9 mg/dL (8.4-10.5)
--- NOTE | 2016-11-14 01:35 | CT ---
EXAM: CT Abdomen and Pelvis Without Intravenous Contrast CLINICAL HISTORY: 61 years old, male; Pain; Abdominal pain; Additional info: Radiating back pain? TECHNIQUE: Axial computed tomography images of the abdomen and pelvis without intravenous contrast. This CT exam was performed using one or more of the following dose reduction techniques: automated exposure control, adjustment of the mA and/or kV according to patient size, and/or use of iterative reconstruction technique. Coronal and sagittal reformatted images were created and reviewed. COMPARISON: US - RENAL 10/28/2016 7:24:09 PM FINDINGS: Partial visualization of moderately severe bilateral effusions with atelectasis. Small pericardial effusion. Cardiomegaly. Calcifications with pancreatic atrophy. Approximately 5 cm cystic lesion in association with the body of the pancreas. Undulating contour to liver. Common bile duct appears prominent. The unenhanced spleen and adrenal glands demonstrate no acute abnormality. Approximately 7 mm calculus in the left kidney in the region of the ureteropelvic junction with associated mild to hydronephrosis. The ureter distal to this is dilated. Additional bilateral intrarenal calculi. Nonspecific perinephric stranding. Atherosclerosis. Evaluation of bowel limited without enteric contrast, particularly for inflammation or underlying lesion. No small bowel obstruction. Colonic diverticula. Right inguinal hernia containing fat and ascitic fluid. Mild ascites. Loss of vertebral body height involving superior endplates of T12 and L1. Degenerative changes. IMPRESSION: Approximately 7 mm calculus in the left kidney in the region of the ureteropelvic junction with associated mild to hydronephrosis. The ureter distal to this is dilated. Additional bilateral intrarenal calculi. Nonspecific perinephric stranding. Loss of vertebral body height involving superior endplates of T12 and L1. Partial visualization of moderately severe bilateral effusions with atelectasis. Small pericardial effusion. Cardiomegaly. Calcifications with pancreatic atrophy. Approximately 5 cm cystic lesion in association with the body of the pancreas. Question pseudocyst. Further evaluation can be performed with contrast study. Right inguinal hernia containing fat and ascitic fluid. Undulating contour to liver. Common bile duct appears prominent. Colonic diverticula. Additional details/findings as above. Correlate clinically. Followup as warranted.
[2016-11-14 02:42] LABS: URINE BILIRUBIN NEGATIVE (NEGATIVE); URINE GLUCOSE (UA) NEGATIVE (NEGATIVE); URINE LEUKOCYTE ESTERASE NEGATIVE Leu/uL (NEGATIVE); URINE NITRATE NEGATIVE (NEGATIVE); URINE PROTEIN 30 mg/dL (<30 mg/dL); URINE UROBILINOGEN 0.2 E.U./dL (<1 E.U./dL)
[2016-11-14 02:43] LABS: URINE APPEARANCE SLIGHT-CLOUDY (CLEAR); URINE COLOR YELLOW (YELLOW)
[2016-11-14 02:54] LABS: URINE BLOOD MODERATE (NEGATIVE)
[2016-11-14 02:55] LABS: URINE EPITHELIAL CELLS 0 - 2 /hpf (0-5)
[2016-11-14 08:39] VITALS: BP 141/78; PULSE 74; RESP 18; TEMP 97.6; O2SAT 95
[2016-11-14] MEDS ORDERED: Magnesium Oxide 400 mg Tab UD PO SCH (10:00)
[2016-11-14] MEDS ORDERED: Ferrous Sulfate 300 mg/5 mL Liq UD PO SCH (10:00)
[2016-11-14] MEDS ORDERED: Home Med 1 UNIT PO SCH (10:00)
--- NOTE | 2016-11-14 11:05 | CARD ---
APPROVED REPORT EKG Measurement Heart [id number] <Conclusion> Normal sinus rhythm Anterior infarct, age undetermined ST & T wave abnormality, consider lateral ischemia IVCD Prolonged QTc No change
--- NOTE | 2016-11-14 12:55 | RAD ---
HISTORY: ureteral stone COMPARISON: CT same day FINDINGS: BOWEL: Normal. No obstruction. No free air. BONES: Normal. OTHER FINDINGS: There is a 5 mm stone in the lower pole of the left kidney and a 7 mm stone in the region of the left renal pelvis as seen on CT. There are no ureteral stones demonstrated IMPRESSION: As above
--- NOTE | 2016-11-14 20:46 | HP ---
HISTORY OF PRESENT ILLNESS: I know the patient very well, who was just discharged from the hospital 24 hours ago. He went home after CHF and COPD and renal insufficiency and he came back with severe pain, looks like he is having a kidney stone. A 61-year-old man, who presents with lower back pain, sharp, tight, worse pain he has ever had in his entire life in the flank region. Has urinary symptoms, he is in the hospital, and looks like a kidney stone, Urology consulted. PAST MEDICAL HISTORY: CHF, renal failure, cirrhosis of the liver, status post liver transplant 2011. He has low back pain, severe. He has also got CHF, edema. He is on fluid restriction of 1800 mL. He has cirrhosis of the liver. Hypertension in the family. SOCIAL HISTORY: He never smoked, no alcohol, no drugs. ALLERGIES: HE HAS HAD ALLERGIES TO PROGRAF. MEDICATIONS: He is on iron, magnesium, folic acid, famotidine, CellCept, Coreg, Norvasc, Neoral, Lasix, and sodium bicarb. REVIEW OF SYSTEMS: No acute vision or hearing changes. No sore throat. No neck pain. No chest pain. No shortness of breath at this time which is great for him. No abdominal pain. He is having severe back pain from kidney stones in the flank with urinary tract symptoms. No leg swelling at this time which is also great for him. No skin issues. No anxiety or depression. PHYSICAL EXAMINATION GENERAL: Well appearing, nontoxic at this time, he is over the bed, episode of pain. He was in severe distress earlier. He is alert and oriented x3. VITAL SIGNS: He has 98 temp, 82 pulse, 18 respiratory rate, 123/62 blood pressure, and 94% O2 sat on room air. HEENT: Head is atraumatic and normocephalic. LUNGS: Decreased breath sounds, but clear to auscultation. No wheezes, no rhonchi, no rales, which is also good for him. HEART: Regular rate. Normal S1 and S2. He had mild CVA tenderness at this time, more severe when he came to the emergency room. ABDOMEN: He has normal bowel sounds. No distention. No guarding. No rebound. No CVA tenderness at this time. BACK: Fine to palpation. EXTREMITIES: No edema which is great for him. NEUROLOGIC: GCS is 15. Speech is normal. Cranial nerves II-XII grossly intact. Alert and oriented x3. SKIN: Warm and dry. Thyroid midline. No palpable appreciable lymphadenopathy. LABORATORY DATA: In multiple tests, he had a CAT scan approximately 7 mm calculus in the left kidney region. He has bilateral intrarenal calculi. He has T12-L1 superior endplates decreased, bilateral effusions, cardiomegaly, pancreatic atrophy, 5 cm cystic lesion in the pancreas. Also on blood test, he has a 6.4 white count, 10 hemoglobin, 20.7 hematocrit, 275 platelets. Sodium 139, potassium 4.3, BUN 72, creatinine 2.9. GFR is 22. Sugar is 113, calcium is 8.9, total bilirubin is 1.4, AST is 112, ALT is 63, alk phos 726, BNP of 5100. Total protein 7.9, albumin is 4.2. Urine is clear. He had a consult with Urology. I did not see a note, but I understand he came in and said he could be discharged. He will go home on these medications. MEDICATIONS: CellCept, Coreg, Feosol, Flomax, folic acid, Lasix, magnesium, Norvasc, and Pepcid, cyclosporine, and sodium bicarbonate. He states he has these medications. I discussed this with his and him at length, he will come to the office in a week or two. I will try and see out of the hospital. He is here for kidney stone, severe back pain and on observation status. Giovanny Elliott DO
== END 2016-11-14 13:59 | disposition home or self-care (01) ==
LOC: ED 22:26 → ERH 11-14 02:54 → 3RSO 11-14 03:31
PROVIDERS: ADMIT Family Medicine; ATTEND Family Medicine
DX: N20.0 Calculus of kidney (principal); Z94.4 Liver transplant status; K74.60 Unspecified cirrhosis of liver; I50.9 Heart failure, unspecified; J44.9 Chronic obstructive pulmonary disease, unspecified; N19 Unspecified kidney failure; Z79.899 Other long term (current) drug therapy; Z82.49 Family history of ischemic heart disease and other diseases of the circulatory system
CPT/HCPCS: 74000; 74176; 80053; 81001; 82150; 83880; 85025; 93005; 99285; G0378; J1940; J2270

== ENCOUNTER 2017-04-13 16:19 | Emergency (ER) | payer MEDICARE, BC ==
[2017-04-13 17:12] VITALS: BMI 22.7
--- NOTE | 2017-04-13 19:32 | ED PDOC ---
Arrival/HPI - General Chief Complaint: Trauma Time Seen by Provider: 04/13/17 19:21 Historian: Patient - History of Present Illness Narrative History of Present Illness (Text): 04/13/17 19:28 61 year old male presents to the Emergency department complaining of worsening right sided pain status post fall yesterday. Pain is worsened with cough. Patient denies any fever, chills, chest pain, shortness of breath, nausea, vomiting, diarrhea, urinary symptoms, back pain, neck pain, headache, dizziness or any other complaints. Time/Duration: 24 hours Symptom Onset: Gradual Symptom Course: Worsening Activities at Onset: Light Past Medical History - Provider Review Nursing Documentation Reviewed: Yes - Infectious Disease Hx of Infectious Diseases: None - Cardiac Hx Cardiac Disorders: Yes Hx Hypertension: Yes Hx Peripheral Edema: Yes - Pulmonary Hx Respiratory Disorders: No (denies) - Neurological Hx Neurological Disorder: No - HEENT Hx HEENT Disorder: No (denies) - Renal Hx Renal Disorder: Yes - Endocrine/Metabolic Hx Endocrine Disorders: No (denies) - Hematological/Oncological Hx Blood Disorders: Yes Hx Anemia: Yes Hx Cirrhosis: Yes - Integumentary Hx Dermatological Disorder: No (denies) - Musculoskeletal/Rheumatological Hx Musculoskeletal Disorders: No (denies) - Gastrointestinal Hx Gastrointestinal Disorders: Yes Other/Comment: Liver transplant - Genitourinary/Gynecological Hx Genitourinary Disorders: No (denies) - Psychiatric Hx Psychophysiologic Disorder: No (denies) Hx Substance Use: No - Surgical History Hx Liver Transplant: Yes (2002) - Anesthesia Hx Anesthesia: Yes Family/Social History - Physician Review Nursing Documentation Reviewed: Yes Family/Social History: Unknown Family HX Smoking Status: Never Smoked Hx Alcohol Use: No Hx Substance Use: No Allergies/Home Meds Allergies/Adverse Reactions: Allergies tacrolimus [From Prograf] Allergy (Verified 11/13/16 23:17) ANAPHYLAXIS milk Adverse Reaction (Unknown, Verified 10/27/16 18:22) VOMITING Home Medications: Home Meds Medication Instructions Recorded Confirmed Ferrous Sulfate 400 mg PO DAILY 07/04/15 04/13/17 Magnesium Oxide [Magnesium] 400 mg PO DAILY 07/04/15 04/13/17 Folic Acid 1 mg PO DAILY 07/15/15 04/13/17 Famotidine [Heartburn Prevention] 20 mg PO BID 05/27/16 04/13/17 Mycophenolate Mofetil [Cellcept] 1,250 mg PO BID 05/27/16 04/13/17 Carvedilol [Coreg] 12.5 mg PO BID 09/17/16 04/13/17 amLODIPine [Norvasc] 5 mg PO BID 09/17/16 04/13/17 Cyclosporine, Modified [Neoral] 25 mg PO BID 10/27/16 04/13/17 Sodium Bicarbonate Tab 650 mg PO TID 10/27/16 04/13/17 Furosemide [Lasix] 40 mg PO BID 11/13/16 04/13/17 Review of Systems - Physician Review All systems were reviewed & negative as marked: Yes - Review of Systems Constitutional: absent: Fevers, Night Sweats Respiratory: Cough. absent: SOB Cardiovascular: absent: Chest Pain Gastrointestinal: absent: Diarrhea, Nausea, Vomiting Genitourinary Male: absent: Dysuria Musculoskeletal: absent: Back Pain, Neck Pain Neurological: absent: Headache, Dizziness Physical Exam Vital Signs Reviewed: Yes Vital Signs Temp Pulse Resp BP Pulse Ox 04/13/17 17:18 97.8 F 81 18 157/82 H 97 Temperature: Afebrile Blood Pressure: Hypertensive Pulse: Regular Respiratory Rate: Normal Appearance: Positive for: Well-Appearing, Non-Toxic, Comfortable Pain Distress: None Mental Status: Positive for: Alert and Oriented X 3 - Systems Exam Head: Present: Atraumatic, Normocephalic Pupils: Present: PERRL Extroacular Muscles: Present: EOMI Conjunctiva: Present: Normal Mouth: Present: Moist Mucous Membranes Neck: Present: Normal Range of Motion Respiratory/Chest: Present: Clear to Auscultation, Good Air Exchange. No: Respiratory Distress, Accessory Muscle Use, Tender to Palpation Cardiovascular: Present: Regular Rate and Rhythm, Normal S1, S2. No: Murmurs Abdomen: Present: Normal Bowel Sounds. No: Tenderness, Distention, Peritoneal Signs Back: Present: Normal Inspection Upper Extremity: Present: Normal Inspection. No: Cyanosis, Edema Lower Extremity: Present: Normal Inspection. No: Edema Neurological: Present: GCS=15, CN II-XII Intact, Speech Normal Skin: Present: Warm, Dry, Normal Color. No: Rashes Psychiatric: Present: Alert, Oriented x 3, Normal Insight, Normal Concentration Medical Decision Making ED Course and Treatment: 04/13/17 19:31 Impression: 61 year old male presents to the Emergency department complaining of right sided pain status post fall. Plan: -- Right ribs xray -- Reassess and disposition Progress Notes: - RAD Interpretation Radiology Orders: 04/13/17 19:27 RIBS RIGHT [RAD] Stat - Medication Orders Current Medication Orders: Tramadol HCl (Ultram) 50 mg PO STAT STA Stop: 04/13/17 21:11 - Scribe Statement The provider has reviewed the documentation as recorded by the Scribe Daniel Ko All medical record entries made by the Scribe were at my direction and personally dictated by me. I have reviewed the chart and agree that the record accurately reflects my personal performance of the history, physical exam, medical decision making, and the department course for this patient. I have also personally directed, reviewed, and agree with the discharge instructions and disposition. Disposition/Present on Arrival - Present on Arrival Any Indicators Present on Arrival: No History of DVT/PE: No History of Uncontrolled Diabetes: No Urinary Catheter: No History of Decub. Ulcer: No History Surgical Site Infection Following: None - Disposition Have Diagnosis and Disposition been Completed?: Yes Diagnosis: Rib contusion Disposition: HOME/ ROUTINE Disposition Time: 21:15 Patient Plan: Discharge Patient Problems: Current Active Problems Problem Status Onset Rib contusion Acute Condition: STABLE Prescriptions: Tramadol HCl [Ultram] 50 mg PO TID PRN #15 tablet PRN Reason: Pain, Moderate (4-7) Referrals: Giovanny Elliott DO [Primary Care Provider] - Follow up with primary Forms: [employer] (Telugu)
[2017-04-13 21:20] VITALS: BP 148/72; PULSE 85; RESP 17; TEMP 98; O2SAT 98
--- NOTE | 2017-04-14 08:50 | RAD ---
PROCEDURE: Radiographs of the Right Ribs. HISTORY: fall COMPARISON: None available. TECHNIQUE: Multiple frontal and oblique radiographs of the right ribs were obtained. FINDINGS: RIGHT RIBS: A comminuted fracture of the distal right 7th rib is appreciated laterally. No destructive bony lesions appreciated throughout. LUNGS: Right hemithorax is completely opacified presumably by fluid the postobstructive atelectasis is not completely excluded. PLEURA: No pneumothorax or pleural fluid. CARDIOVASCULAR: Normal sized heart. No pulmonary vascular congestion. OTHER FINDINGS: None. IMPRESSION: Comminuted right 7th rib fracture identified. Remaining ribs appear intact. Good opacification of the right hemithorax is appreciate which could be a function of recurrent large right pleural effusion. Posttraumatic effusion is not excluded nor is posttreatment atelectasis excluded. Follow-up CT may be useful further characterization. No apparent right pneumothorax.
== END 2017-04-13 21:21 | disposition home or self-care (01) ==
LOC: ED 16:19
DX: S20.211A Contusion of right front wall of thorax, initial encounter (principal); W19.XXXA Unspecified fall, initial encounter; I10 Essential (primary) hypertension; Z94.4 Liver transplant status

== ENCOUNTER 2017-05-14 17:08 | Inpatient (IN) | payer MEDICARE, BC ==
[2017-05-14 17:13] VITALS: BMI 21.9
--- NOTE | 2017-05-14 17:47 | ED PDOC ---
Arrival/HPI - General Chief Complaint: Shortness Of Breath Time Seen by Provider: 05/14/17 17:16 Historian: Patient - History of Present Illness Narrative History of Present Illness (Text): 05/14/17 17:57 A 61 year old male was sent in by PMD to the emergency department for evaluation of abnormal chest xray, complaining of shortness of breath. Patient notes shortness of breath when walking. Patient reports he had an xray done yesterday, which showed fluid in lungs. Notes he had fluid in lungs a few months ago, no drainage. Patient is taking Lasix. Denies any chest pain or any other complaints at this time. sent by dr johnson for eval PMD: Dr. Johnson 05/14/17 22:19 Symptom Onset: Sudden Symptom Course: Unchanged Activities at Onset: Rest Context: Home Past Medical History - Provider Review Nursing Documentation Reviewed: Yes - Infectious Disease Hx of Infectious Diseases: None - Cardiac Hx Cardiac Disorders: Yes Hx Hypertension: Yes Hx Peripheral Edema: Yes - Pulmonary Hx Respiratory Disorders: No (denies) - Neurological Hx Neurological Disorder: No - HEENT Hx HEENT Disorder: No (denies) - Renal Hx Renal Disorder: Yes - Endocrine/Metabolic Hx Endocrine Disorders: No (denies) - Hematological/Oncological Hx Blood Disorders: Yes Hx Anemia: Yes Hx Cirrhosis: Yes - Integumentary Hx Dermatological Disorder: No (denies) - Musculoskeletal/Rheumatological Hx Musculoskeletal Disorders: No (denies) - Gastrointestinal Hx Gastrointestinal Disorders: Yes Other/Comment: Liver transplant 2002 - Genitourinary/Gynecological Hx Genitourinary Disorders: No (denies) - Psychiatric Hx Psychophysiologic Disorder: No (denies) Hx Substance Use: No - Surgical History Hx Liver Transplant: Yes (2002) - Anesthesia Hx Anesthesia: Yes Hx Anesthesia Reactions: No Hx Malignant Hyperthermia: No Family/Social History - Physician Review Nursing Documentation Reviewed: Yes Family/Social History: No Known Family HX Smoking Status: Never Smoked Hx Alcohol Use: No Hx Substance Use: No Allergies/Home Meds Allergies/Adverse Reactions: Allergies tacrolimus [From Prograf] Allergy (Verified 05/14/17 20:32) ANAPHYLAXIS milk Adverse Reaction (Unknown, Verified 05/14/17 20:32) VOMITING Home Medications: Home Meds Medication Instructions Recorded Confirmed Ferrous Sulfate 400 mg PO DAILY 07/04/15 05/14/17 Magnesium Oxide [Magnesium] 400 mg PO DAILY 07/04/15 05/14/17 Folic Acid 1 mg PO DAILY 07/15/15 05/14/17 Famotidine [Heartburn Prevention] 20 mg PO BID 05/27/16 05/14/17 Mycophenolate Mofetil [Cellcept] 1,250 mg PO BID 05/27/16 05/14/17 Carvedilol [Coreg] 12.5 mg PO BID 09/17/16 05/14/17 amLODIPine [Norvasc] 5 mg PO BID 09/17/16 05/14/17 Cyclosporine, Modified [Neoral] 25 mg PO BID 10/27/16 05/14/17 Sodium Bicarbonate Tab 650 mg PO TID 10/27/16 05/14/17 Furosemide [Lasix] 40 mg PO BID 11/13/16 05/14/17 Furosemide [Lasix] 20 mg PO HS 05/14/17 05/14/17 Review of Systems - Physician Review All systems were reviewed & negative as marked: Yes - Review of Systems Respiratory: SOB Cardiovascular: absent: Chest Pain Physical Exam Vital Signs Reviewed: Yes Vital Signs Temp Pulse Resp BP Pulse Ox 05/14/17 19:04 134/72 05/14/17 17:29 20 98 05/14/17 17:08 97.1 F L 78 18 157/79 H 98 Temperature: Afebrile Blood Pressure: Normal Pulse: Regular Respiratory Rate: Normal Appearance: Positive for: Well-Appearing, Non-Toxic, Comfortable Pain Distress: None Mental Status: Positive for: Alert and Oriented X 3 - Systems Exam Head: Present: Atraumatic, Normocephalic Pupils: Present: PERRL Extroacular Muscles: Present: EOMI Conjunctiva: Present: Normal Mouth: Present: Moist Mucous Membranes Neck: Present: Normal Range of Motion Respiratory/Chest: Present: Other ( right sided diminished breath sounds). No: Respiratory Distress, Accessory Muscle Use Cardiovascular: Present: Regular Rate and Rhythm, Normal S1, S2. No: Murmurs Abdomen: Present: Normal Bowel Sounds. No: Tenderness, Distention, Peritoneal Signs Back: Present: Normal Inspection Upper Extremity: Present: Normal Inspection. No: Cyanosis, Edema Lower Extremity: Present: Normal Inspection. No: Edema Neurological: Present: GCS=15, CN II-XII Intact, Speech Normal Skin: Present: Warm, Dry, Normal Color. No: Rashes Psychiatric: Present: Alert, Oriented x 3, Normal Insight, Normal Concentration Medical Decision Making ED Course and Treatment: 05/14/17 17:46 Impression: A 61 year old male with shortness of breath. complete opacity, however o2 sat 92 %, no increased wob, Plan: -- EKG -- chest xray -- Urinalysis -- labs -- Reassess and disposition Prior Visits: Notes and results from previous visits were reviewed. Patient was last seen in the emergency department on 04/13/17 for evaluation of right sided pain s/p fall. 04/14/17 08:52 Radiographs of the Right Ribs Creator : Oleg Baires MD IMPRESSION: Comminuted right 7th rib fracture identified. Remaining ribs appear intact. Good opacification of the right hemithorax is appreciate which could be a function of recurrent large right pleural effusion. Posttraumatic effusion is not excluded nor is posttreatment atelectasis excluded. Follow-up CT may be useful further characterization. No apparent right pneumothorax. Progress Notes: EKG: Ordered, reviewed, and independently interpreted the EKG. Rate : 79 BPM Rhythm : NSR Interpretation : Nonspecific ST/T wave changes 05/14/17 22:19 pt reassesed: seen by dr johnson bedside accpts for admission - Lab Interpretations Lab Results: 05/14/17 17:45 05/14/17 17:45 Lab Results 05/14/17 17:45: Sodium 139, Potassium 4.5, Chloride 103, Carbon Dioxide 25, Anion Gap 16, BUN 55 H, Creatinine 2.5 H, Est GFR ( Amer) 32, Est GFR ( Non-Af Amer) 27, Random Glucose 124 H, Calcium 9.3, Magnesium 2.0, Total Bilirubin 1.0, AST 60 H, ALT 40, Alkaline Phosphatase 499 H, Lactate Dehydrogenase 466, Total Creatine Kinase 37, Troponin I < 0.01, NT-Pro-B Natriuret Pep 1020 H, Total Protein 7.2, Albumin 3.9, Globulin 3.3, Albumin/ Globulin Ratio 1.2 05/14/17 17:45: PT 13.6 H, INR 1.19 H, APTT 36.0 05/14/17 17:45: WBC 4.7 D, RBC 3.19 L, Hgb 9.2 L, Hct 27.8 L, MCV 87.1, MCH 28.8, MCHC 33.1, RDW 13.0, Plt Count 186, MPV 9.0, Gran % 53.2, Lymph % (Auto) 33.1, [place] % (Auto) 11.2 H, Eos % (Auto) 2.1, Baso % (Auto) 0.4, Gran # 2.51, Lymph # (Auto) 1.6, [place] # (Auto) 0.5, Eos # (Auto) 0.1, Baso # (Auto) 0.02 I have reviewed the lab results: Yes - RAD Interpretation Radiology Orders: 05/14/17 17:29 CHEST PORTABLE [RAD] Stat - EKG Interpretation Interpreted by ED Physician: Yes Type: 12 lead EKG - Medication Orders Current Medication Orders: Amlodipine Besylate (Norvasc) 5 mg PO BID MICHELLE Carvedilol (Coreg) 12.5 mg PO BID MICHELLE Famotidine (Pepcid) 20 mg PO BID MICHELLE Ferrous Sulfate (Feosol) 324 mg PO TID MICHELLE Folic Acid (Folic Acid) 1 mg PO DAILY MICHELLE Furosemide (Lasix) 40 mg IVP DAILY [facility] Ceftriaxone Sodium (Rocephin 1 Gram Ivpb) 1 gm in 100 mls @ 100 mls/hr IVPB DAILY MICHELLE PRN Reason: Protocol Azithromycin 250 mg/ Sodium (Chloride) 250 mls @ 167 mls/hr IVPB DAILY MICHELLE PRN Reason: Protocol Levalbuterol HCl (Xopenex) 0.63 mg IH Q6H [facility] Magnesium Oxide (Mag-Ox) 400 mg PO DAILY [facility] Methylprednisolone (Solu-Medrol) 40 mg IVP BID [facility] Last Admin: 05/14/17 19:02 Dose: 40 mg IVP Administration Document 05/14/17 19:02 MS (Rec: 05/14/17 19:04 MS [facility] [id number][place] Charges for Administration # of IVP Administrations 1 Mycophenolate Mofetil (Cellcept Cap) 1,250 mg PO BID MICHELLE Non-Formulary Medication (Cyclosporine, Modified [Neoral]) 25 mg PO BID MICHELLE Sodium Bicarbonate (Sodium Bicarbonate Tab) 650 mg PO TID MICHELLE Discontinued Medications Furosemide (Lasix) 40 mg IVP STAT STA Stop: 05/14/17 18:29 Last Admin: 05/14/17 19:04 Dose: 40 mg MAR Blood Pressure Document 05/14/17 19:04 MS (Rec: 05/14/17 19:05 MS [facility] [id number]) Blood Pressure Blood Pressure (100/60-150/90) 134/72 IVP Administration Document 05/14/17 19:04 MS (Rec: 05/14/17 19:05 MS [facility] [id number]) Charges for Administration # of IVP Administrations 1 - Scribe Statement The provider has reviewed the documentation as recorded by the Prieto Johnson Provider Scribe Attestation: All medical record entries made by the Sidneyibmichel were at my direction and personally dictated by me. I have reviewed the chart and agree that the record accurately reflects my personal performance of the history, physical exam, medical decision making, and the department course for this patient. I have also personally directed, reviewed, and agree with the discharge instructions and disposition. Disposition/Present on Arrival - Present on Arrival Any Indicators Present on Arrival: No History of DVT/PE: No History of Uncontrolled Diabetes: No Urinary Catheter: No History of Decub. Ulcer: No History Surgical Site Infection Following: None - Disposition Have Diagnosis and Disposition been Completed?: Yes Diagnosis: CHF (congestive heart failure), Pleural effusion Disposition: HOSPITALIZED Disposition Time: 08:00 Condition: FAIR
[2017-05-14 18:05] LABS: BASO # 0.02 K/mm3 (0.0-2.0); BASO % 0.4 % (0.0-3.0); EOS # 0.1 (0.0-0.7); EOS % 2.1 % (1.5-5.0); GRAN # 2.51 (1.4-6.5); GRAN % 53.2 % (50.0-68.0); HEMOGLOBIN 9.2 g/dL (14.0-18.0); LYMPH # 1.6 (1.2-3.4); LYMPH % 33.1 % (22.0-35.0); MEAN CELL VOLUME 87.1 fl (80.0-105.0); MEAN CORPUSCULAR HEMOGLOBIN 28.8 pg (25.0-35.0); MEAN CORPUSCULAR HGB CONC 33.1 g/dl (31.0-37.0); MONO # 0.5 (0.1-0.6); MONO % 11.2 % (1.0-6.0); RBC 3.19 10^6/uL (3.5-6.1); WHITE BLOOD COUNT 4.7 10^3/ul (4.5-11.0)
[2017-05-14 18:10] LABS: INR 1.19 (0.93-1.08); PROTHROMBIN TIME 13.6 SECONDS (9.4-12.5)
[2017-05-14 18:17] LABS: ALB/GLOB RATIO 1.2 (1.1-1.8); ALBUMIN 3.9 g/dL (3.0-4.8); ALT/SGPT 40 U/L (7-56); AST/SGOT 60 U/L (17-59); BLOOD UREA NITROGEN 55 mg/dL (7-21); CALCIUM 9.3 mg/dL (8.4-10.5); GFR AFRICAN-AMERICAN 32; GFR NON-AFRICAN AMERICAN 27
[2017-05-14 18:23] LABS: B-TYPE NATRIURETIC PEPTIDE 1020 pg/mL (0-450); TROPONIN I < 0.01 ng/mL
[2017-05-14] MEDS: MethylPREDNISolone 40 mg Vial IVP SCH (19:02)
[2017-05-14 19:36] LABS: URINE BILIRUBIN NEGATIVE (NEGATIVE); URINE BLOOD TRACE-INTACT (NEGATIVE); URINE GLUCOSE (UA) NEGATIVE (NEGATIVE); URINE LEUKOCYTE ESTERASE NEGATIVE Leu/uL (NEGATIVE); URINE NITRATE NEGATIVE (NEGATIVE); URINE PROTEIN NEGATIVE mg/dL (<30 mg/dL); URINE UROBILINOGEN 0.2 E.U./dL (<1 E.U./dL)
[2017-05-14 19:39] LABS: URINE APPEARANCE CLEAR (CLEAR); URINE COLOR YELLOW (YELLOW)
[2017-05-14 19:41] LABS: URINE AMORPHOUS SEDIMENT FEW; URINE BACTERIA MOD (NEG); URINE EPITHELIAL CELLS 0 - 2 /hpf (0-5); URINE HYALINE CAST 0 - 2 /hpf; URINE WBC 0 - 2 /hpf (0-6)
--- NOTE | 2017-05-14 20:20 | CT ---
EXAM: CT Chest Without Intravenous Contrast EXAM DATE/TIME: 05/14/2017 6:37 PM CLINICAL HISTORY: 61 years old, male; Signs and symptoms; Shortness of breath; Prior surgery; Surgery date: 6+ months; Surgery type: Liver transplant; Patient HX: SOB. Right side plueral effusino; Additional info: White out TECHNIQUE: Axial computed tomography images of the chest without intravenous contrast. All CT scans at this facility use one or more dose reduction techniques, viz.: automated exposure control; ma/kV adjustment per patient size (including targeted exams where dose is matched to indication; i.e. head); or iterative reconstruction technique. Coronal and sagittal reformatted images were created and reviewed. COMPARISON: Report from a prior CT abdomen of 07/18/2016. The prior study itself is currently unavailable. FINDINGS: LUNGS: The right lung is completely compressed by a very large right pleural effusion. No evidence of significant focal consolidation/infiltrate in the left lung. No evidence of diffuse pulmonary vascular congestion. PLEURAL SPACE: Very large right pleural effusion. This has mass effect on the heart and mediastinum, which are shifted to the left. It does not appear hyperdense to suggest a hemothorax Small to moderate left pleural effusion. No pneumothorax is seen. HEART: Coronary artery calcification. Heart appears mildly enlarged. No evidence of significant pericardial effusion. BONES/JOINTS: Healing/subacute fractures of the right sixth and seventh ribs postero-laterally. Multiple bilateral healed rib fractures. Mild chronic vertebral compression fractures of T12 and L1.Bony structures appear demineralized. SOFT TISSUES: Bilateral gynecomastia. VASCULATURE: Exam is nondiagnostic for aortic dissection and pulmonary emboli, secondary to unenhanced technique. LYMPH NODES: No evidence of diffuse lymphadenopathy. PANCREAS: 5 cm round, well-defined cystic mass in the distal pancreatic body, which could represent a pancreatic pseudocyst. A similar finding was described on the prior abdominal CT report. No associated air. No significant adjacent inflammatory changes seen. Multiple tiny pancreatic calcification seen, most likely secondary to chronic pancreatitis. INTRAPERITONEAL SPACE: Small amount of free fluid is seen in the visualized portions of the abdomen. IMPRESSION: - Very large right pleural effusion, causing diffuse compression of the right lung and mediastinal shift to the left. - Small to moderate left pleural effusion. - Small amount of abdominal free fluid. - 5 cm cystic mass in the distal pancreatic body, which could represent a pancreatic pseudocyst. This finding was also described on a prior abdominal CT report. - See above for remaining findings.
[2017-05-14] MEDS ORDERED: Pneumococcal 23-Valent Vaccine IM ONE (23:00)
[2017-05-14] MEDS ORDERED: Influenza Vaccine 60 mcg/0.5 mL SYR (4YR UP) IM ONE (23:00)
[2017-05-15] MEDS: Levalbuterol 0.63 MG/3 ML Inhal Soln UD IH SCH ×4 (01:18→21:19)
--- NOTE | 2017-05-15 02:14 | HP ---
HISTORY OF PRESENT ILLNESS: I have been talking with Kelechi over the past week and I saw him in the office today. He had a chest x-ray yesterday. He has been getting steadily short of breath over the past few days. The chest x-ray yesterday showed a complete right-sided whiteout. He has had similar picture like this in the past, but never this bad and never this short of breath. He had problems walking down my stairs and he has oxygen with him now. The lungs are very filled with fluid and he is on Lasix already. I sent him to the emergency room and I put him in the hospital for shortness of breath, the right lung whiteout, possible pneumonia. He is very uncomfortable. PAST MEDICAL HISTORY: He has a past medical history. He has hypertension. He has edema, anemia, cirrhosis, liver transplant in 2002. SOCIAL HISTORY: No smoking. No drinking. No drugs. ALLERGIES: TO TACROLIMUS AND MILK. MEDICATIONS: He takes iron, magnesium, folic acid, famotidine, CellCept, Coreg, Norvasc, Neoral, sodium bicarbonate and Lasix. REVIEW OF SYSTEMS: N o acute vision changes or hearing changes. No sore throat. No neck pain. No chest pain. He is acutely short of breath. He is short of breath at rest. Occasional wheeze. He is definitely uncomfortable. No abdominal pain. No nausea, vomiting, constipation, diarrhea. Extremities have edema. He is on Lasix for that. PHYSICAL EXAMINATION: VITAL SIGNS: He has 97.1 temp, 78 pulse, 20 respiratory rate, 159/79 blood pressure, 98% O2 sat on oxygen. GENERAL: He is fairly well appearing at rest. He is comfortable, nontoxic. He is alert and oriented x3. HEENT: His head is atraumatic, normocephalic. Extraocular muscles are intact. Pupils equal, reactive to light and accommodation. Throat is moist. NECK: Supple. HEART: Regular rate. LUNGS: No breath sounds on the right side, left is fairly normal. ABDOMEN: Soft, nontender. Positive bowel sounds. No guarding. No rebound. No CVA tenderness. He is having a scar from his liver transplant. EXTREMITIES: +1/4 pitting edema bilaterally. NEUROLOGIC: GCS is 15. Cranial nerves II through XII grossly intact. Speech is normal. Alert and oriented x3. SKIN: Warm and dry. No apparent rashes or ulcers. LYMPH NODES: Thyroid midline. No palpable appreciable lymphadenopathy. LABORATORY DATA: He has a 139 sodium, potassium 4.5, BUN 55, creatinine 2.5. I consulted Renal. GFR is down to 27, sugar is 124, calcium is 9.3, magnesium is 2, total bili is 1, AST is 60, ALT is 40, alk phos 499, lactate dehydrogenase is 466, total creatinine kinase is 37, troponin I is less than 0.01, his BNP is 1020. He will be on Lasix IV, total protein 7.2, albumin is 3.9. INR is 1.19. He has a 4.7 white count, 9.2 hemoglobin, 27.9 hematocrit with a 186 platelets. ASSESSMENT AND PLAN: He will be having a consult for Pulmonary for the whiteout, Renal for his increased BUN and creatinine, Cardiology for the congestive heart failure. He will be on Lasix IV, Solu-Medrol, IV Rocephin and Zithromax for possible pneumonia. We will get lab tomorrow. He will be on oxygen. He is being admitted for congestive heart failure and a right lung whiteout without pneumonia. Giovanny Elliott DO
[2017-05-15 07:25] LABS: HEMOGLOBIN 9.1 g/dL (14.0-18.0); MEAN CELL VOLUME 87.1 fl (80.0-105.0); MEAN CORPUSCULAR HEMOGLOBIN 28.6 pg (25.0-35.0); MEAN CORPUSCULAR HGB CONC 32.9 g/dl (31.0-37.0); MEAN PLATELET VOLUME 9.2 fl (7.0-11.0); RBC 3.18 10^6/uL (3.5-6.1); RED CELL DISTRIBUTION WIDTH 12.9 % (11.5-14.5); WHITE BLOOD COUNT 3.8 10^3/ul (4.5-11.0)
[2017-05-15 07:28] LABS: ALB/GLOB RATIO 1.2 (1.1-1.8); ALBUMIN 3.8 g/dL (3.0-4.8); CALCIUM 9.4 mg/dL (8.4-10.5)
--- NOTE | 2017-05-15 08:42 | RAD ---
HISTORY: right sided opacity COMPARISON: 05/13/2017 FINDINGS: LUNGS: Complete opacification of right rosanne thorax and mediastinal shift to the left. CT shows a large pleural effusion PLEURA: As above CARDIOVASCULAR: Normal. OSSEOUS STRUCTURES: No significant abnormalities. VISUALIZED UPPER ABDOMEN: Normal. OTHER FINDINGS: None. IMPRESSION: Complete opacification of the right rosanne thorax and mediastinal shift to the left CT shows large pleural effusion
[2017-05-15] MEDS: cefTRIAXone 1 gm 1 GM/100 ML BAG IVPB SCH (09:03)
[2017-05-15] MEDS ORDERED: CYCLOSPORINE MODIFIED 25 MG PO SCH (10:00)
[2017-05-15] MEDS ORDERED: FERROUS SULFATE PO SCH (10:00)
[2017-05-15] MEDS ORDERED: Non Formulary Medication (Magnesium Oxide [Magnesium] 400 MG) PO SCH (10:00)
[2017-05-15] MEDS ORDERED: MYCOPHENOLATE MOFETIL PO SCH (10:00)
[2017-05-15] MEDS: Azithromycin 250 MG in Sodium Chloride 0.9% 250 ML IVPB SCH (10:08)
[2017-05-15] MEDS: MethylPREDNISolone 40 mg Vial IVP SCH ×2 (10:20→18:32)
[2017-05-15] MEDS: Magnesium Oxide 400 mg Tab UD PO SCH (10:20)
[2017-05-15] MEDS ORDERED: CYCLOSPORINE MODIFIED 50 MG PO SCH ×4 (10:29→18:00)
[2017-05-15] MEDS: CYCLOSPORINE MODIFIED 50 MG PO SCH ×2 (10:42→18:32)
[2017-05-15] MEDS: Enoxaparin 30 mg Syringe SC SCH (11:29)
[2017-05-15 13:17] LABS: IRON 41 ug/dL (45-180)
[2017-05-15 13:26] LABS: % IRON SATURATION 24 % (20-55); TOTAL IRON BINDING CAPACITY 171 ug/dL (261-462)
--- NOTE | 2017-05-15 14:43 | CARD ---
APPROVED REPORT EKG Measurement Heart [id number] <Conclusion> Normal sinus rhythm Low voltage QRS Cannot rule out Anteroseptal infarct, age undetermined Abnormal ECG
--- NOTE | 2017-05-15 17:05 | CON ---
DATE: 05/15/2017 PULMONARY CONSULTATION HISTORY OF PRESENT ILLNESS: Kelechi Soto is well known to this system. He has had a liver transplant in the past. He is being seen by Dr. Elliott since 1979. The patient had progressive shortness of breath over the last several weeks. He was prepared to see Dr. Nick in the office this coming Wednesday. The patient came to the emergency room and is being evaluated for the shortness of breath at this time. An outpatient x-ray showed a complete right-sided whiteout suggestive of right pleural effusion. There is query atelectasis beneath as well. Cannot exclude underlying pulmonary pathology with this picture. The patient's major complaint is shortness of breath. He has oxygen at home. The patient states that he has had a chest tube in the past. He is on Lasix. He is being seen by Renal. He is less uncomfortable now than described in the initial H and P and the emergency room notes. Chest tube will be required to evacuate the fluid, evaluate the fluid with the appropriate testing, relieving the patient's shortness of breath and then allowing us to evaluate the underlying pulmonary parenchyma. PAST MEDICAL HISTORY: As described above. History of hypertension, edema, anemia, cirrhosis, status post liver transplant. SOCIAL HISTORY: He has no smoking history. No travel history. No occupational exposure. FAMILY HISTORY: HTN, CAD ALLERGIES: MILK, TACROLIMUS. HOME MEDICATIONS: Include magnesium, Lasix, Cellcept, Coreg, Norvasc, Neoral, sodium bicarbonate. REVIEW OF SYSTEMS: Dyspnea, some cough noted. No chest pains, hemoptysis or pleurisy. No night sweats, no weight loss. No vomiting, no urinary frequency, no skin rashes, no memory loss. All other systems negative other than described above. PHYSICAL EXAMINATION: GENERAL: The patient is resting comfortably. He is afebrile. VITAL SIGNS: His heart rate is 70, respiratory rate is only 18, blood pressure 140/80, 98% oxygen on nasal cannula. The patient is less dyspneic than was described earlier. He is comfortable. Alert, awake, oriented. HEENT: Normocephalic, atraumatic. Pupils: PERRLA, EOMs full. Conjunctivae pink. NECK: Supple. No JVD. No lymphadenopathy. No bruit. No mass. No thyromegaly. HEART: Regular rhythm. S1 and S2 without murmur, gallop or rub. LUNGS: Absent breath sounds on the right, left is normal. ABDOMEN: Soft. Bowel sounds normoactive without mass, guarding, rebound or organomegaly. EXTREMITIES: Reveal no clubbing or cyanosis. There is some edema noted bilaterally in the lower extremities. NEUROLOGIC: Awake, alert, oriented. No focal findings noted. SKIN: Warm and dry. No rash or excoriations. LYMPH NODES: No lymphadenopathy is noted in the supraclavicular notch or in the cervical, inguinal or axillary areas. LABORATORY DATA: Laboratory studies at this point show a white count of 3800, hemoglobin 9, hematocrit 27, platelet count 178. Chemistries: BUN 56, creatinine 2.3, glucose 151, sodium 142, potassium 4.9, chloride 103, CO2 of 25, AST 49, ALT 40, alk phos 483. Chest x-ray: Complete whiteout of the right lung. A CAT scan was done last night as well, which was reviewed in report and in films. The right lung is completely compressed by very large right pleural effusion. Despite the report, we cannot evaluate the underlying pulmonary parenchyma. EKG, sinus rhythm, nonspecific ST-T wave changes. ASSESSMENT: 1. Extreme large right pleural effusion, going down. 2. Mild respiratory compromise at this time. 3. No previous pulmonary history. 4. Renal insufficiency. 5. Immunocompromise host. 6. Status post liver transplant. PLAN: I have discussed this case with Dr. Elliott. He requested Dr. Jose Martin Whitlock be called for chest tube. It is imperative that the full workup be done on the fluid. I have stated someone to consult asking for cell count, cytology, chemistries and the complete thoracentesis profile. The patient has been given Lasix and Solu-Medrol in the meantime. Antibiotics had been started. Consultants have not yet seen this patient. He will continue on oxygen therapy. There is no clear cut evidence for congestive heart failure at this time. We will await thoracentesis, chest tube placement and evaluation of the pleural effusion by testing. Close followup is essential. Etiology of this large effusion remains unclear. Underlying malignancy, underlying infection are most likely, but atypical congestive heart failure is certainly a possibility as well, although unlikely. We will follow closely with you and decide on the need for further intervention. Awaiting chest tube placement. The case was discussed at length with Dr. Elliott. Musa Brooks MD MORENA
--- NOTE | 2017-05-16 00:21 | CON ---
DATE: 05/15/2017 REASON FOR CONSULTATION: Acute kidney injury. HISTORY OF PRESENT ILLNESS: A 61-year-old male previously unknown to me, was admitted yesterday. He was sent to the emergency room from PMD's office because of dyspnea on exertion, progressive shortness of breath. He had a chest x-ray done as outpatient, which showed whiteout of the right side of his chest. Patient denies any fevers. He denies any chills. He complains of progressive dyspnea on exertion. He gives history of liver transplant. He gives a history of respiratory problems for the last 6 to 8 months. He reports that he had an ERCP done in the spring, he had a stent placed in his transplanted liver. Subsequently in September, he had another ERCP done to remove the stent. He had reports such as respiratory problems have started since then. He denies any urinary complaints. He denies any abdominal pain. He denies any nausea, vomiting. He does report that his kidney function has been deteriorating lately. PAST MEDICAL AND SURGICAL HISTORY: Cirrhosis of the liver, liver transplant in 2002, hypertension, chronic kidney disease stage 3, baseline creatinine around 1.5 to 1.7, chronic CHF, episode of acute kidney injury in summer. FAMILY HISTORY: Noncontributory. SOCIAL HISTORY: No smoking, social alcohol use, no IV drug abuse. ALLERGIES: MILK. MEDICATIONS AT HOME: Included Lasix 20 mg at bedtime., folic acid 1 mg, Feosol, amlodipine 5 b.i.d., sodium bicarbonate 650 p.o. t.i.d., mag oxide 400, Lasix 40 b.i.d., cyclosporin 25 b.i.d., Coreg 12.5 b.i.d., CellCept 1250 p.o. b.i.d. REVIEW OF SYSTEMS: All systems are reviewed, pertinent positives as mentioned in the history of presenting illness, rest unremarkable. PHYSICAL EXAMINATION: GENERAL: Thinly built elderly male, sitting in bed. VITAL SIGNS: Blood pressure 150/87, heart rate 90, respiratory rate 20, and temperature 97.9. HEENT: Normocephalic, atraumatic, positive pallor. NECK: Supple, no JVD. LUNGS: Bilateral equal air entry, decreased breath sounds on right side, decreased expansion in right side. CARDIAC: S1, S2, regular rate rhythm, positive murmur, no rub. ABDOMEN: Distended, soft, nontender, bowel sounds present. EXTREMITIES: No lower extremity edema. INTAKE AND OUTPUT: 300/750 LABORATORY DATA: WBC 3.8, hemoglobin 9.1, hematocrit 27.7, and platelets 178. Sodium 142, potassium 4.9, chloride 103, CO2 of 25. BUN 56, creatinine 2.3. Glucose 151. Calcium 9.4. AST 49, ALT 40. Albumin 3.8. Urinalysis: Yellow, clear, pH 6.0, specific gravity 1.010, protein negative, blood trace intact, leukocyte esterase negative. Echocardiogram done in November 2016: Good LV function. Calcified aortic valve with good opening. Mild TR, [id number] pulmonary hypertension. Renal ultrasound done in October 2016: Right kidney; normal echogenicity, no hydro. Left kidney; normal echogenicity, no hydro. ASSESSMENT: 1. Acute kidney injury, superimposed on chronic kidney disease stage 3. 2. Large right pleural effusion, ascites. 3. History of liver transplant. 4. Hypertension. 5. Anemia, normocytic, normochromic. 6. Immunocompromised state. PLAN: 1. The etiology of his acute kidney injury is not entirely clear at this time, suspect it could be cardiorenal state. 2. Need to consider potentially nephrotoxic agents, i.e. cyclosporine related. 3. Recommend thoracentesis/drainage of right pleural effusion. 4. Avoid nephrotoxins. 5. Check cyclosporine trough level. 6. Check iron stores. Thank you for the courtesy of this consultation. We will follow this patient closely with you and recommendations as the information becomes available. Lu Pike MD
[2017-05-16] MEDS: Levalbuterol 0.63 MG/3 ML Inhal Soln UD IH SCH ×4 (01:03→22:30)
--- NOTE | 2017-05-16 06:04 | CON ---
DATE: CONSULTING PHYSICIAN: Dianne Arshad MD. COVERING FOR: Jose Martin Mccormack MD. REASON FOR CONSULTATION: Shortness of breath, rule out CHF. BRIEF CLINICAL HISTORY: This is a 61-year-old male with past medical history significant for hypertension, hyperlipidemia, status post liver transplantation in 2002 secondary to cirrhosis, came in with shortness of breath and possible right-sided hemithorax, completely white out. Denies any chest pain, denies any palpitations, but feels short of breath. PAST MEDICAL HISTORY: Significant for hypertension, edema, anemia, cirrhosis, status post liver transplantation at [facility] in 2002, is status post ERCP last year and removal of the stent at the [facility] [place]. PREVIOUS CARDIAC WORKUP: As follows: Patient had echocardiography done, 11/10/2016 that showed good LV function, calcified aortic valve opening, calcified mitral valve, mildly dilated LA/RA, mild TR, [id number] pulmonary hypertension, RV systolic pressure of 54, calculated ejection fraction of 52% dated 11/10/2016. Patient had a stress test, 09/17/2016, that showed probably normal myocardial perfusion study, ejection fraction 59%, normal gated wall motion technique. In comparison with the last study, 07/15/2015, there was no significant change. SOCIAL HISTORY: Never a smoker, but used to drink when he was in [place] in 1998. No drinking after the liver transplant. CURRENT MEDICATION: Patient is taking amlodipine, sodium bicarbonate tablet, CellCept, magnesium, furosemide, folic acid, cyclosporin and Coreg. EKG shows normal sinus, rate of 78, poor progression. Chest x-ray: Complete opacification of the right hemithorax and midsternal shift, on the left shows a large pleural effusion. Patient had a CAT scan of the chest done yesterday, followed by the chest x-ray. Lungs are completely compressed large pleural effusion. No evidence of significant focal consolidation. Patient's blood workup shows WBC of 3.8, hemoglobin , hematocrit 27.7, platelet count 178. Chemistries showed sodium 140, potassium 4.9, chloride 102, carbon dioxide 25, anion gap of 15, BUN and creatinine 2.3. PHYSICAL EXAMINATION: VITAL SIGNS: Temperature afebrile, heart rate 90, blood pressure 144/86. HEENT: PERRLA intact. NECK: Supple. No carotid bruit or thyromegaly. CHEST: Decreased air entry on the right side. ABDOMEN: Soft. EXTREMITIES: Clubbing and cyanosis negative. IMPRESSION: Large pleural effusion, status post liver transplant, hypertension, renal insufficiency and diabetes. RECOMMENDATION: Recommend lipid profile. TSH, hemoglobin A1c, thoracentesis, gentle diuretics. We will follow with you and we will get DVT prophylaxis, renal adjusted dose. Thank you, Dr. Elliott, for the opportunity in taking care of the patient Kelechi Soto. We will transfer care to Dr. Mccormack on Wednesday. Dianne Arshad MD
[2017-05-16 07:16] LABS: GRAN # 8.65 (1.4-6.5); GRAN % 90.9 % (50.0-68.0); HEMOGLOBIN 9.3 g/dL (14.0-18.0); LYMPH # 0.6 (1.2-3.4); LYMPH % 6.6 % (22.0-35.0); MEAN CELL VOLUME 88.2 fl (80.0-105.0); MEAN CORPUSCULAR HGB CONC 32.9 g/dl (31.0-37.0); MEAN PLATELET VOLUME 9.4 fl (7.0-11.0); MONO # 0.2 (0.1-0.6); MONO % 2.5 % (1.0-6.0); PLATELET COUNT 190 10^3/uL (120.0-450.0); RBC 3.21 10^6/uL (3.5-6.1); RED CELL DISTRIBUTION WIDTH 13.2 % (11.5-14.5); WHITE BLOOD COUNT 9.5 10^3/ul (4.5-11.0)
[2017-05-16 07:35] LABS: ALB/GLOB RATIO 1.2 (1.1-1.8); ALBUMIN 3.8 g/dL (3.0-4.8); CALCIUM 9.5 mg/dL (8.4-10.5); MAGNESIUM 2.4 mg/dL (1.7-2.2)
[2017-05-16] MEDS: cefTRIAXone 1 gm 1 GM/100 ML BAG IVPB SCH (09:21)
[2017-05-16 09:48] LABS: LYMPHOCYTE 7 % (22.0-35.0); MONOCYTE 1 % (1.0-6.0); NEUTROPHIL 92 % (50.0-70.0)
[2017-05-16 09:49] LABS: HYPOCHROMIA SLIGHT; PLATELET ESTIMATE NORMAL (NORMAL)
[2017-05-16] MEDS: CYCLOSPORINE MODIFIED 50 MG PO SCH ×2 (10:27→17:38)
[2017-05-16] MEDS: Azithromycin 250 MG in Sodium Chloride 0.9% 250 ML IVPB SCH (10:27)
[2017-05-16] MEDS: Enoxaparin 30 mg Syringe SC SCH (10:27)
[2017-05-16] MEDS: MethylPREDNISolone 40 mg Vial IVP SCH ×2 (10:27→17:38)
[2017-05-16] MEDS: Magnesium Oxide 400 mg Tab UD PO SCH (10:28)
--- NOTE | 2017-05-16 12:48 | PN ---
DATE: PULMONARY FOLLOWUP SUBJECTIVE: Mr. oSto is feeling more comfortable today. He is sitting somewhat upward in bed, but does not complain of shortness of breath. He is in the hospital awaiting evacuation of a large right pleural effusion compressing the entire right lung. PHYSICAL EXAMINATION GENERAL: He is resting comfortably. VITAL SIGNS: Stable. He is not tachypneic. O2 sat is 96% on nasal cannula. HEENT: Normocephalic, atraumatic. NECK: Supple. No JVD. No bruit. No lymphadenopathy. CARDIOVASCULAR: Regular rhythm. S1, S2. Soft systolic ejection murmur remains the same. CHEST: Global decrease in breath sounds. Prolonged expiratory phase. No rales, rhonchi or wheezes noted. ABDOMEN: Soft. Bowel sounds normoactive without mass, guarding, rebound, or organomegaly. EXTREMITIES: Reveal no clubbing, cyanosis or edema. NEUROLOGIC EXAMINATION: No focal findings concerned about the patient's psychological problems. There is a global decrease in breath sounds on the right side, otherwise the examination is unchanged. IMPRESSION 1. Large right pleural effusion. 2. Mild respiratory compromise. 3. Renal insufficiency. 4. Immunocompromised state, status post liver transplant. PLAN: Await cardiothoracic/interventional input. The patient needs a chest tube with evaluation of the pleural fluid as stated yesterday. We will follow up closely with you. Dr. Nick will be made aware of this patient's status and he will follow up in the morning. If there are any further problems, please feel free to contact me and we will intervene immediately. Musa Brooks MD [facility]
--- NOTE | 2017-05-16 13:46 | PN ---
DATE: SUBJECTIVE: I saw him sitting up in bed. He did not look as good today as he did yesterday. He is a little short of breath, on oxygen. He is also down to 30 mg of Solu-Medrol b.i.d. He is on azithromycin, CellCept, Coreg, cyclosporine, Feosol, folic acid, Lasix, Lovenox, magnesium oxide, Norvasc, Pepcid, Rocephin IV, sodium bicarbonate, Solu-Medrol 30 b.i.d., today I am going to keep on 30 and Xopenex tomorrow, Dr. Jose Martin Whitlock will put a chest tube in to get rid of all that right-sided lung consolidation of fluid and hopefully, that will drain and he could breathe easier and then, we could start decreasing the Solu-Medrol. He looks more short of breath today than yesterday. He does not feel as energetic. PHYSICAL EXAMINATION: VITAL SIGNS: He has a 97.7 temperature, 81 pulse, 151/90 blood pressure, 18 respiratory rate, 90% O2 sat on nasal cannula 2 liters. HEENT: Head is atraumatic and normocephalic. HEART: Regular rate. LUNGS: Decreased breath sounds, especially the right side, left has got better motion. ABDOMEN: Soft. Mildly distended. He did have liver transplant. EXTREMITIES: No edema. It was better when he came in. LABORATORY DATA: He has 9.5 white count, 9.3 hemoglobin, 28.3 hematocrit, 190,000 platelets. He has 141 of sodium, potassium 4.7, BUN 64, and creatinine 2.4. GFR is 28. Sugar is 155, calcium is 9.5, phosphorus 2.7, magnesium 2.4, iron is 41, total bilirubin is 0.8, AST is 39, ALT 37, alkaline phosphatase 149, total protein is 7.1. He has been seen by Renal, Pulmonary, Cardio; also, we will get Dr. Jose Martin Whitlock consulted for putting a tube in to get rid of his right-sided lung fluid and see what it is. Continue with a 30 mg b.i.d. as opposed to decreasing. He will be more short of breath today. He has a right chest CHF, possible pneumonia, renal insufficiency, liver transplant history, short of breath and hopefully, this procedure tomorrow will help him. We will check his labs tomorrow and I would like to see him out of bed to chair today, but he does look weak. Giovanny Elliott DO [facility]
--- NOTE | 2017-05-17 00:13 | PN ---
DATE: 05/16/2017 SUBJECTIVE: Patient is seen sitting in bed. He is awake, he is alert and he is comfortable. He reports his breathing is somewhat better. He denies any chest tightness. He denies any palpitations. PHYSICAL EXAMINATION: GENERAL: Middle-aged male, sitting in bed. VITAL SIGNS: Blood pressure 142/85, heart rate 92, respiratory rate 20, temperature 98.5. HEENT: Normocephalic, atraumatic. NECK: Supple, no JVD. LUNGS: Right side decreased air entry, distant breath sounds. CARDIAC: S1, S2, regular rate and rhythm, no murmur, no rub. ABDOMEN: Soft, nontender, bowel sounds present. EXTREMITIES: No lower extremity edema. INTAKE AND OUTPUT: 650/500. LABORATORY DATA: WBC 9.5, hemoglobin 9.3, hematocrit 28, platelets 190. Sodium 141, potassium 4.7, chloride 102, CO2 26, BUN 64, creatinine 2.4, glucose 155, calcium 9.5, phosphorus 3.7, magnesium 2.4, iron saturation 24, iron 41, ferritin 533. Albumin 3.8. CURRENT MEDICATIONS: Zithromax, CellCept 1250 b.i.d., Coreg 4.5 b.i.d., cyclosporin 50 b.i.d., Feosol, folic acid, Lasix 40 IV daily, Lovenox, magnesium oxide, amlodipine 5 b.i.d., Pepcid 20 b.i.d., ceftriaxone, sodium bicarbonate 650 t.i.d. ASSESSMENT: 1. Acute kidney injury superimposed on chronic kidney disease, stage III. 2. Liver transplant. 3. Right pleural effusion. 4. Congestive heart failure. 5. Anemia of chronic disease. 6. Hyperglycemia. PLAN: 1. Discontinue sodium bicarbonate. 2. Check cyclosporine trough levels. 3. Agree with plan for chest tube. 4. Continue IV Lasix. 5. Avoid nephrotoxins. 6. Continue immunosuppression for liver transplant. Lu Pike MD
[2017-05-17] MEDS: Levalbuterol 0.63 MG/3 ML Inhal Soln UD IH SCH ×4 (03:00→18:34)
[2017-05-17 06:26] LABS: HEMOGLOBIN 8.7 g/dL (14.0-18.0); MEAN CELL VOLUME 87.7 fl (80.0-105.0); MEAN CORPUSCULAR HEMOGLOBIN 28.9 pg (25.0-35.0); MEAN PLATELET VOLUME 9.4 fl (7.0-11.0); RBC 3.01 10^6/uL (3.5-6.1); RED CELL DISTRIBUTION WIDTH 13.2 % (11.5-14.5); WHITE BLOOD COUNT 6.8 10^3/ul (4.5-11.0)
[2017-05-17 06:56] LABS: ALB/GLOB RATIO 1.2 (1.1-1.8); ALBUMIN 3.5 g/dL (3.0-4.8); CALCIUM 9.1 mg/dL (8.4-10.5); MAGNESIUM 2.4 mg/dL (1.7-2.2)
--- NOTE | 2017-05-17 08:11 | PN ---
DATE: 05/15/2017 SUBJECTIVE: He has a bunch of problems. He has got right chest whiteout. He has got a little bit of CHF. He is short of breath. He has a little renal insufficiency. He has a history of liver transplant. I see him resting in bed, may be a little bit better than yesterday where he was short of breath, he is on oxygen. He is eating a little bit. He has had consults with Pulmonary, Renal, Cardiology. He might need to have a large pleural effusion drained in his right chest. He is currently on CellCept, Coreg, Neoral, Feosol, folic acid, Lasix, Lovenox, magnesium oxide, Norvasc, Pepcid, Rocephin, sodium bicarbonate, Solu-Medrol went from 40 mg down to 30 mg twice a day, Xopenex, and Zithromax. PHYSICAL EXAMINATION: VITAL SIGNS: Temperature 97.9, pulse 90, blood pressure 150/87, respiratory rate 20, and 98% O2 sat on 2L nasal cannula. HEENT: Head is atraumatic, normocephalic. HEART: Regular rate. LUNGS: Decreased breath sounds at the right, almost no airway. Left is better. ABDOMEN: Soft. EXTREMITIES: Less edema. LABORATORY DATA: He has a 3.8 white count, 9.1 hemoglobin, 27.7 hematocrit, 178 platelets. He has 142 sodium, potassium 4.9, BUN up to 56, creatinine went down to 2.3, GFR is up to 29, sugar is 151, calcium is 9.4, total bili is 0.9, AST is 49, ALT is 40, alk phos 43. He had a troponin I of less than 0.01 and BNP was 1020. His urine was moderate, but he is on antibiotics. ASSESSMENT AND PLAN: He will be seen by the vp corporate development, Renal, Cardiology. He might have a tap of the right lung to get rid of the pleural effusion, the whiteout. I think he is slowly improving. We will check his labs tomorrow. Giovanny Elliott DO [facility] # [id number]
--- NOTE | 2017-05-17 08:49 | PN ---
DATE: 05/17/2017 PULMONARY NOTE SUBJECTIVE: The patient appears comfortable this morning. He is not short of breath at rest. PHYSICAL EXAMINATION VITAL SIGNS: Temperature is 97.9, pulse is 86, respirations 18, blood pressure 128/75. Oxygen saturation on nasal cannula is 96%. HEENT: Normocephalic, atraumatic. No JVD. CARDIOVASCULAR: Positive S1, S2. Positive S3 gallop. LUNGS: Decreased breath sounds most of the right lung, and left base. No rhonchi. No wheezing. EXTREMITIES: Positive for edema. No cyanosis, no clubbing. Calves are nontender to palpation. GI: Abdomen is soft, nontender and nondistended. Bowel sounds are positive. SKIN: No acute rash. NEUROLOGIC: Limited at the present time. IMPRESSION: 1. Recurrent congestive heart failure. 2. Chronic pleural effusions - very large/increasing right pleural effusion. 3. Acute on chronic kidney disease. 4. Chronic anemia. 5. Status post liver transplant. PLAN: The patient appears comfortable this morning. He is not short of breath at rest. He does state to feeling a little better overall. On physical exam, there is a significant decrease in the breath sounds noted in the right lung. However, there is no significant alveolar-arterial gradient. Oxygen saturation on nasal cannula is now 96%. The patient does have chronic pleural effusions, and the pleural effusions are noted on every chest x-ray or chest film(CT SCAN) in the computer. However, again, the right-sided effusion is very large/increased at this point in time. Dr. Jose Martin Whitlock has been called on the case for chest tube placement. Inputs by Renal and Cardiology are noted. The patient is currently on low-dose Solu-Medrol and Xopenex nebulizer treatments. Again, there is no significant bronchospasm on physical exam. I will decrease the IV Solu-Medrol this morning. Clinical status of the patient is somewhat improved - compared to the initial presentation. However, the overall status/prognosis for this patient remains very guarded. I will discuss the above with Dr. Elliott. Terry Nick MD [facility] # [id number] [facility]
--- NOTE | 2017-05-17 08:49 | PN ---
DATE: 05/16/2017 REASON FOR DICTATION: Covering Dr. Jose Martin Mccormack. REASON FOR CONSULTATION: Shortness of breath, rule out CHF, right large pleural effusion. SUBJECTIVE: The patient denies any chest pain. No other complaints. Mild short of breath. OBJECTIVE: GENERAL: Not in apparent distress. VITAL SIGNS: Temperature afebrile, heart rate 91, blood pressure 149/79. HEENT: PERRLA. Extraocular muscles intact. NECK: Supple. No carotid bruits or thyromegaly. CHEST: Clear to auscultation. HEART: S1, S2, regular. ABDOMEN: Soft. EXTREMITIES: Clubbing and cyanosis negative. LABORATORY DATA: Blood workup as follows. WBC 9.5, hemoglobin , hematocrit 28.3, platelet count 190. Chemistry showed sodium 141, potassium 4.7, chloride 102, carbon dioxide 26, anion gap of 18, BUN 64, creatinine 2.4, BNP 1020. IMPRESSION: Large pleural effusion though BNP is elevated on admission, but the patient not in clinical failure, no evidence of acute myocardial infarction, history of chronic kidney disease, creatinine clearance about 23 stage III to IV chronic kidney disease, history of cirrhosis, history of status post liver transplant, history of ERCP and stent in the biliary duct. The patient's last echo done on 11/10/2016 showed ejection fraction preserved, mildly dilated right atrium and left atrium, [id number] mitral regurgitation. Arterial pressure 54, calculated ejection fraction 52%. The patient had a stress test, 09/18/2015, showed probably normal myocardial perfusion study, ejection fraction 59%. RECOMMENDATION: The patient is on amlodipine, sodium bicarbonate, CellCept for liver transplant, cyclosporin and Coreg. Suggest thoracentesis and cytology and after . We will see the patient has underlying pneumonia, not continued on antibiotics for now. We will transfer care tomorrow to Dr. Jose Martin Mccormack. We will repeat the blood workup in the morning. Thank you, Dr. Elliott, for providing me the opportunity in taking care of the patient, Kelechi Soto. Dianne Arshad MD
[2017-05-17] MEDS: cefTRIAXone 1 gm 1 GM/100 ML BAG IVPB SCH (09:01)
[2017-05-17] MEDS: Magnesium Oxide 400 mg Tab UD PO SCH (09:02)
[2017-05-17] MEDS: MethylPREDNISolone 40 mg Vial IVP SCH ×2 (09:03→22:34)
[2017-05-17] MEDS: CYCLOSPORINE MODIFIED 50 MG PO SCH ×2 (09:07→18:09)
[2017-05-17] MEDS: Enoxaparin 30 mg Syringe SC SCH (09:16)
[2017-05-17 09:36] LABS: INR 1.12 (0.93-1.08); PARTIAL THROMBOPLASTIN TIME 29.5 Seconds (25.1-36.5); PROTHROMBIN TIME 12.9 SECONDS (9.4-12.5)
[2017-05-17] MEDS: Azithromycin 250 MG in Sodium Chloride 0.9% 250 ML IVPB SCH (09:45)
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
--- NOTE | 2017-05-17 12:27 | PN ---
DATE: 05/17/2017 CARDIOLOGY FOLLOWUP SUBJECTIVE: The patient is comfortable at rest. No shortness of breath, no chest pain. PHYSICAL EXAMINATION: VITAL SIGNS: Blood pressure is 150/86, heart rate is in the 90s. NECK: Negative JVD. LUNGS: Decreased breath sounds. HEART: Regular S1, S2. EXTREMITIES: Without edema. LABORATORY DATA: His BUN and creatinine is 69 and 2.0, glucose is 151. IMPRESSION: 1. Chronic pleural effusion. 2. Anemia. 3. Renal insufficiency. 4. Status post liver transplantation. 5. Hypertension. 6. Left congestive heart failure. 7. Breathing compromise from pleural effusion. 8. Dyspnea. PLAN: Given these findings, the patient will need thoracentesis versus a chest tube. Discussed with Dr. Elliott in detail. Jose Martin Mccormack MD
--- NOTE | 2017-05-17 12:33 | PN ---
DATE: SUBJECTIVE: He is sitting up in bed, although when he try to walk up few steps, he got very short of breath. His right chest full of pleural effusion and fluid, which has gotten worse. He needs to have a chest tube place with Dr. Jose Martin Whitlock. Hope he will see him this morning and do it this after noon. He is overall little bit better than when he came in. He is on CellCept, Coreg, Neoral, Feosol, folic acid, Lasix IV, Lovenox, magnesium oxide, Norvasc, Pepcid, Rocephin, Solu-Medrol is down to 20 q. 12 IV, Xopenex, azithromycin. PHYSICAL EXAMINATION: VITAL SIGNS: He has a 97.9 temperature, 86 pulse, 128/75 blood pressure, 18 respiratory rate, 96% O2 sat on 2 liters nasal cannula. HEENT: Head is atraumatic, normocephalic. Throat is moist. NECK: Supple. HEART: Regular rate. LUNGS: Right side, no airway at all. Left side, moving the air very good. ABDOMEN: Soft. EXTREMITIES: No edema. LABORATORY DATA: He has a 6.8 white count, 8.7 hemoglobin, 26.4 hematocrit, 187 platelets. He has a 139 sodium, potassium 4.3, BUN is 69, creatinine is 2. GFR is 34. Sugar is 151, calcium is 9.1, total bilirubin is 3.2, magnesium 2.4, total bilirubin is 0.8, AST is 43, ALT is 38, alkaline phosphatase total protein is 6.5. ASSESSMENT AND PLAN: We will help him for a chest tube to be placed with Dr. Jose Martin Whitlock. He has got whiteout of the right lung. I think this will help him greatly with short of breath when took couple of steps. He also has a history of liver transplant. Giovanny Elliott DO MTDD
[2017-05-17] MEDS ORDERED: Darbepoetin Alfa 60 mcg/ml Inj SC ONE (15:27)
[2017-05-17] MEDS ORDERED: Lidocaine 1%/Epinephrine 1:100000 30 ml vial IJ ONE (19:02)
--- NOTE | 2017-05-17 19:44 | PN ---
DATE: 05/17/2017 SUBJECTIVE: The patient is seen walking in the room. He is awake, he is alert. He complains of dyspnea on exertion. He denies any chest pain. Denies any palpitations. PHYSICAL EXAMINATION: GENERAL: A middle-aged male, in no acute distress. VITAL SIGNS: Blood pressure 137/83, heart rate 86, respiratory rate 18, temperature 97.9. HEENT: Normocephalic, atraumatic, positive pallor. NECK: Supple, no JVD. LUNGS: Decreased breath sounds at the right side, left better air entry. CARDIAC: S1 and S2, regular rate and rhythm, no murmur, no rub. ABDOMEN: Distended, soft, nontender, bowel sounds present. EXTREMITIES: A 1+ pitting edema of the lower extremities. INTAKE AND OUTPUT: 1430/1100. LABORATORY DATA: WBC 6.8, hemoglobin 8.7, hematocrit 26, platelets 187. Sodium 139, potassium 4.3, chloride 103, CO2 of 23, BUN 69, creatinine 2.0, glucose 151, calcium 9.1, phosphorus 3.2, magnesium 2.4. A1c 5.4. AST 43, ALT 38. Cyclosporin trough level 50. CURRENT MEDICATIONS: CellCept 1250 b.i.d., Coreg 12.5 b.i.d., cyclosporin 50 b.i.d., Feosol 324, folic acid, insulin, Lasix 40 IV daily, mag oxide, amlodipine 5 b.i.d., Pepcid, Rocephin, Solu-Medrol, Xopenex, and Zithromax. ASSESSMENT/PLAN: 1. Acute kidney injury superimposed on chronic kidney disease stage III, resolving acute components. 2. Right-sided pleural effusion, ascites. 3. History of liver transplant. 4. Hypertension. PLAN: 1. Agree with plan for chest tube placement today. 2. Avoid nephrotoxins. 3. The patient is off sodium bicarbonate, which was raising his blood pressure. 4. The patient has underlying chronic kidney disease stage III, likely secondary to hemodynamic mediation. 5. Anemia of chronic disease. We will give Aranesp. 6. Continue immunosuppression, cyclosporin level seems to be acceptable. Lu Pike MD [facility] # [id number]
[2017-05-17] MEDS ORDERED: Morphine 2 mg/ml ISec IVP ONE (20:58)
--- NOTE | 2017-05-17 21:09 | PCM.PROC ---
Procedures Attestation:: I certify that I have explained the specified Operation(s) or Procedure(s), risks, benefits and reasonable alternatives to the Patient and/or other person responsible. The opportunity was given to ask questions and all questions answered - Chest Tube Chest Tube Location: Anterior Chest Right Chest Tube Procedure: Povidone-Iodine 1% Tube Sutured to Skin: No Sterile Dressing Applied: Yes Anesthesia: Lidocaine 1% Incision Made With: other (15) Post Procedure: sterile dressing applied, air occlusive dressing Michelle of Air [place]: No Tube Drainage: none Post Procedure CXR?: Yes Patient Tolerated Procedure: Yes Complications: other (prior Chest tube placement on right side. Procedure aborted due to extensive scar tissue encountered upon attempted entrance into thoacic cavity.) Progress: Time out identifying correct patient and side was performed. The right anterior chest was prepped and draped in the usual sterile fashion. 10c of lidocaine with epinephrine was infiltrated into the surrounding tissue. [place] identification of the 4th intercostal space was us to identify site of incision. 1 inch incision made with 15blade. Noris forceps were used to divided the muscle tissues above the pre-identified rib. Copious amount of scar tissue was encountered and tissues was difficult. Procedure was aborted due to extensive scar tissue of the right chest wall. 3-0 vicryl suture was used to closed underlying tissue followed by 0 silk figure 8 stitch for the skin. clean dry gauze dressing was placed over incision with tegaderm dressing. Patient tolerated procedure well and post procedure CXR was obtained which showed residual pleural effusion. Will plan for OR placement of tube thoracostomy on 05/18/17.
[2017-05-17] MEDS ORDERED: Lidocaine 5% Patch TD ONE (22:13)
[2017-05-18] MEDS: Levalbuterol 0.63 MG/3 ML Inhal Soln UD IH SCH ×3 (01:10→19:23)
[2017-05-18 06:25] LABS: MEAN CELL VOLUME 87.1 fl (80.0-105.0); MEAN CORPUSCULAR HEMOGLOBIN 28.2 pg (25.0-35.0); MEAN CORPUSCULAR HGB CONC 32.4 g/dl (31.0-37.0); MEAN PLATELET VOLUME 9.3 fl (7.0-11.0); RBC 3.19 10^6/uL (3.5-6.1); RED CELL DISTRIBUTION WIDTH 13.1 % (11.5-14.5)
[2017-05-18 06:35] LABS: INR 1.14 (0.93-1.08); PROTHROMBIN TIME 13.2 SECONDS (9.4-12.5)
[2017-05-18 06:51] LABS: ALB/GLOB RATIO 1.1 (1.1-1.8); ALBUMIN 3.6 g/dL (3.0-4.8); CALCIUM 9.5 mg/dL (8.4-10.5)
--- NOTE | 2017-05-18 07:56 | PN ---
DATE: 05/18/2017 PULMONARY NOTE SUBJECTIVE: The patient appears comfortable at rest. He is not short of breath. PHYSICAL EXAMINATION VITAL SIGNS: Temperature is 97.8, pulse is 94, respirations 18, blood pressure 145/88. Oxygen saturation on nasal cannula is 93%-94%. HEENT: Normocephalic, atraumatic. No JVD. CARDIOVASCULAR: Positive S1, S2. Positive S3 gallop. LUNGS: Decreased breath sounds - most of the right lung, and left base. No rhonchi. No wheezing. EXTREMITIES: Positive for edema. No cyanosis, no clubbing. Calves are nontender to palpation. GI: Abdomen is soft, nontender and nondistended. Bowel sounds are positive. SKIN: No acute rash. NEUROLOGIC: Limited at the present time. IMPRESSION: 1. Recurrent congestive heart failure. 2. Chronic pleural effusions - very large/increasing right pleural effusion. 3. Acute on chronic kidney disease. 4. Chronic anemia. 5. Status post liver transplant. PLAN: The patient appears comfortable this morning. He is not short of breath at rest. I did discuss the case with the night nurse at length. The night nurse stated that the patient is okay at rest, but is dyspneic on exertion. On physical exam, there is no significant bronchospasm noted. I will continue the current nebulizer treatments and low-dose intravenous steroids(decreased yesterday) for now. The patient also remains on antibiotic therapy. There are no temperatures noted. There is no leukocytosis. I did review the note by Surgery. The patient is for the operating room - for formal chest tube placement - later this morning. Inputs by Cardiology and Renal are also noted. The patient remains on intravenous Lasix. Clinical status of this patient certainly remains guarded. I will discuss the above with Surgery this morning. I will also discuss the above with Dr. Elliott this morning. Terry Nick MD MTDYan
--- NOTE | 2017-05-18 08:33 | RAD ---
HISTORY: comparison, pleural effusion COMPARISON: 05/14/2017 FINDINGS: LUNGS: Complete opacification of the right chest. This is unchanged PLEURA: As above CARDIOVASCULAR: Normal. OSSEOUS STRUCTURES: No significant abnormalities. VISUALIZED UPPER ABDOMEN: Normal. OTHER FINDINGS: None. IMPRESSION: Complete opacification of right rosanne thorax unchanged
[2017-05-18] MEDS: MethylPREDNISolone 40 mg Vial IVP SCH ×2 (09:08→22:08)
[2017-05-18] MEDS: cefTRIAXone 1 gm 1 GM/100 ML BAG IVPB SCH (09:09)
[2017-05-18] MEDS: Lidocaine 5% Patch TD SCH (09:10)
[2017-05-18] MEDS: CYCLOSPORINE MODIFIED 50 MG PO SCH ×2 (09:25→17:21)
[2017-05-18] MEDS: Enoxaparin 30 mg Syringe SC SCH (09:26)
[2017-05-18] MEDS ORDERED: Lidocaine 5% Patch TD SCH (10:00)
--- NOTE | 2017-05-18 10:58 | CP.PCM.PN ---
Subjective - Date & Time of Evaluation Date of Evaluation: 05/18/17 Time of Evaluation: 07:25 - Subjective Subjective: General Surgery Progress Note for Dr. Og Patient seen and examined at bedside. Patient denies any chest wall pain, worsening of dyspnea, hoarseness, or any other complaints aside from his nasal passage getting dry from oxygen therapy. Nurse reports no events overnight. Objective - Vital Signs/Intake and Output Vital Signs (last 24 hours): Temp Pulse Resp BP Pulse Ox 97.8 F 94 H 18 159/94 H 93 L 05/18/17 06:00 05/18/17 09:08 05/18/17 06:00 05/18/17 09:08 05/18/17 06:00 Intake and Output: 05/18/17 05/18/17 06:59 18:59 Intake Total 0 Output Total 500 Balance -500 - Medications Medications: Current Medications Amlodipine Besylate (Norvasc) 5 mg PO BID [facility] Last Admin: 05/18/17 09:08 Dose: 5 mg Azithromycin (Zithromax) 250 mg PO DAILY [facility] Last Admin: 05/18/17 09:07 Dose: 250 mg Carvedilol (Coreg) 12.5 mg PO BID [facility] Last Admin: 05/18/17 09:07 Dose: 12.5 mg Enoxaparin Sodium (Lovenox) 30 mg SC DAILY [facility] PRN Reason: Protocol Last Admin: 05/18/17 09:26 Dose: Not Given Famotidine (Pepcid) 20 mg PO BID [facility] Last Admin: 05/18/17 09:08 Dose: 20 mg Ferrous Sulfate (Feosol) 324 mg PO TID [facility] Last Admin: 05/18/17 09:07 Dose: 324 mg Folic Acid (Folic Acid) 1 mg PO DAILY [facility] Last Admin: 05/18/17 09:07 Dose: 1 mg Furosemide (Lasix) 40 mg IVP DAILY [facility] Last Admin: 05/18/17 09:08 Dose: 40 mg Ceftriaxone Sodium (Rocephin 1 Gram Ivpb) 1 gm in 100 mls @ 100 mls/hr IVPB DAILY [facility] PRN Reason: Protocol Stop: 05/19/17 10:59 Last Admin: 05/18/17 09:09 Dose: 100 mls/hr Levalbuterol HCl (Xopenex) 0.63 mg IH Q6H [facility] Last Admin: 05/18/17 08:10 Dose: Not Given Lidocaine (Lidoderm) 1 ea TD DAILY [facility] Last Admin: 05/18/17 09:10 Dose: 1 ea Methylprednisolone (Solu-Medrol) 20 mg IVP Q12 [facility] Last Admin: 05/18/17 09:08 Dose: 20 mg Mycophenolate Mofetil (Cellcept Cap) 1,250 mg PO BID [facility] Last Admin: 05/18/17 09:06 Dose: 1,250 mg Non-Formulary Medication (Cyclosporine, Modified [Neoral]) 50 mg PO BID [facility] Last Admin: 05/18/17 09:25 Dose: 50 mg - Labs Labs: 05/18/17 05:15 05/18/17 05:15 PT 13.2 SECONDS (9.4-12.5) H 05/18/17 05:15 INR 1.14 (0.93-1.08) H 05/18/17 05:15 APTT 29.5 Seconds (25.1-36.5) 05/17/17 08:55 - Constitutional Appears: Well, Non-toxic - Head Exam Head Exam: ATRAUMATIC, NORMOCEPHALIC - Eye Exam Eye Exam: EOMI, Normal appearance - ENT Exam ENT Exam: Mucous Membranes Moist, Normal Oropharynx - Neck Exam Neck Exam: Normal Inspection - Respiratory Exam Respiratory Exam: Decreased Breath Sounds (in right lung field), NORMAL BREATHING PATTERN. absent: Accessory Muscle Use - Cardiovascular Exam Cardiovascular Exam: absent: Tachycardia - GI/Abdominal Exam GI & Abdominal Exam: Soft, Normal Bowel Sounds. absent: Guarding, Rebound - Extremities Exam Extremities Exam: Normal Inspection. absent: Pedal Edema - Neurological Exam Neurological Exam: Alert, Awake, Oriented x3 - Psychiatric Exam Psychiatric exam: Normal Affect, Normal Mood - Skin Skin Exam: Dry, Intact, Normal Color, Warm Additional comments: right chest wall surgical site shows no bleeding or surrounding erythema; gauze and sutures are intact Assessment and Plan - Assessment and Plan (Free Text) Assessment: 61 year old with a past medical history of liver transplant, renal insufficiency , and hypertension who presented with 2 weeks of gradually worsening exertional dyspnea who was found to have a large right-sided pleural effusion. Surgery was consulted for possible chest tube placement. Chest tube placement was aborted given the extensive amount of scar tissue encountered in the procedure. Plan is now for US guided pleurocentesis by interventional radiology. Plan: Interventional Radiology to perform US-guided right pleurocentesis Will follow up with pleural fluid analysis, including but not limitied to LDH, glucose, pH, cell count with differential, culture, cytology, and gram stain. Continue medical management. Repeat labs and portable chest X-ray in the morning. Further recommendations per Dr. Og.
[2017-05-18 12:38] LABS: AMYLASE < 30 U/L (35-125)
[2017-05-18 12:42] LABS: B-TYPE NATRIURETIC PEPTIDE 9360 pg/mL (0-450)
--- NOTE | 2017-05-18 13:20 | PN ---
DATE: SUBJECTIVE: I saw Kelechi in bed. His was there. They are very upset because they could not put a chest tube in yesterday and will have to try again today. I did discuss this with the concrete inspector and the surgeon, Dr. Jose Martin Whitlock, will try. If he cannot manage to do this, then we might be with thoracic surgeon for his right lung could be loculated and there might decortication involvement in the future. We will see how he does today. PHYSICAL EXAMINATION GENERAL: He is comfortable in bed at rest. No shortness of breath. When he moves to the bathroom, he does get short of breath. VITAL SIGNS: He has a 97.8 temperature, 94 pulse, 145/88 blood pressure, 18 respiratory rate, and 93% O2 saturation on nasal cannula. HEENT: His head is atraumatic and normocephalic. HEART: Regular rate. LUNGS: Decreased breath sounds on the right side, no air motion. The left side with good air motion. ABDOMEN: Soft, nontender. Positive bowel sounds. EXTREMITIES: No edema. MEDICATIONS: He is currently on CellCept, Coreg, cyclosporine, Feosol, folic acid, Lasix, Lidoderm, Lovenox, Norvasc, Pepcid, Rocephin IV, Solu-Medrol is down to 20 mg IV b.i.d., Xopenex, and Zithromax IV. LABORATORY DATA: He has a 9 white count, 9 hemoglobin and better, hematocrit, with 195,000 platelets. INR 1.14. He has got a 141 sodium, potassium 4.6, BUN 68, creatinine 1.9, GFR is 36, sugar is 150, calcium is 9.5. Total bilirubin is 0.8, AST is 65, ALT is 52, alkaline phosphates 361, total protein 6.9. ASSESSMENT AND PLAN: He is being seen by Cardiology, Surgery, Renal. Chest x-ray yesterday showed complete opacification of the right hemithorax, unchanged. We will try to get a chest tube in with Interventional Radiology. We will discuss this with the Surgery and he might need a thoracic surgeon. Congestive heart failure, right chest opacification, history of liver transplant, renal insufficiency. Giovanny Elliott DO [facility] # [id number] MTDYan
--- NOTE | 2017-05-18 14:35 | PN ---
DATE: 05/18/2017 CARDIOLOGY FOLLOWUP SUBJECTIVE: The attempt at a chest tube is noted above. PHYSICAL EXAMINATION: GENERAL: Text. VITAL SIGNS: Blood pressure 160/88, heart rates in the 80s. HEENT: Text. NECK: Negative JVD. LUNGS: Decreased breath sounds. HEART: Reveals S1 and S2. EXTREMITIES: Without edema. LABORATORY DATA: Hemoglobin is 9. Chemistries: BUN and creatinine are 68 and 1.9. IMPRESSION: 1. Recurrent pleural effusion. 2. Dyspnea. 3. History of liver transplantation. 4. Hypertension. 5. Dyspnea. PLAN: Given these findings, the patient is scheduled to go to the OR for chest tube placement. Jose Martin Mccormack MD
[2017-05-18 15:02] LABS: BODY FLUID TYPE PLEURAL
--- NOTE | 2017-05-18 15:14 | RAD ---
HISTORY: rt chest tube COMPARISON: 05/17/2017 TECHNIQUE: Chest PA and lateral FINDINGS: LUNGS: No active pulmonary disease. PLEURA: There has been placement of a pigtail chest tube at the right lung base posteriorly. There has been successful drainage of the large pleural effusion. There is a small basilar pneumothorax which is 3.3 cm from the chest wall CARDIOVASCULAR: Normal. OSSEOUS STRUCTURES: No significant abnormalities. VISUALIZED UPPER ABDOMEN: Normal. OTHER FINDINGS: None. IMPRESSION: There has been placement of a pigtail chest tube at the right lung base posteriorly. There has been successful drainage of the large pleural effusion. There is a small basilar pneumothorax which is 3.3 cm from the chest wall
[2017-05-18 15:43] LABS: BF GROSS APPEARANCE CLOUDY (CLEAR)
[2017-05-18 15:44] LABS: BODY FLUID TOTAL COUNT 100 (0-0)
--- NOTE | 2017-05-18 20:18 | US ---
PROCEDURE: Ultrasound-guided a chest tube placement HISTORY: Liver transplant. Large right pleural effusion with shortness of breath. Needs chest tube PHYSICIAN(S): Jose Martin Whitlock MD. TECHNIQUE: The relative risks and indications for the procedure were explained to the patient and informed consent obtained. The patient was placed in a sitting position sonography of the right chest performed. This revealed a large right pleural effusion. A right posterior lateral intercostal approach was selected for chest tube placement in the area prepped and draped usual sterile fashion. 1 percent xylocaine was used to anesthetize the skin soft tissues. An 18 gauge needle was advanced to the right pleural space. Clear guillen fluid was aspirated. The appropriate labs were sent. A 0.035 guidewire was coiled in the right pleural cavity. Sequential dilatation was performed with subsequent placement of 12 Swedish pigtail chest tube. 3700 cc of clear guillen fluid was aspirated. The chest tube was secured and flushed. The patient tolerated the procedure well. IMPRESSION: 1. Ultrasound-guided right chest tube placement as described above. 2. 3700 cc of guillen fluid were drained. The appropriate labs were sent.
[2017-05-18] MEDS: Oxycodone/Acetaminophen 5/325 mg Tab PO PRN (22:09)
[2017-05-18] MEDS ORDERED: Lidocaine 5% Patch TD ONE (22:13)
[2017-05-19] MEDS: Levalbuterol 0.63 MG/3 ML Inhal Soln UD IH SCH ×4 (01:12→19:36)
[2017-05-19 06:22] LABS: HEMOGLOBIN 9.4 g/dL (14.0-18.0); MEAN CELL VOLUME 85.8 fl (80.0-105.0); MEAN CORPUSCULAR HEMOGLOBIN 28.4 pg (25.0-35.0); MEAN CORPUSCULAR HGB CONC 33.1 g/dl (31.0-37.0); MEAN PLATELET VOLUME 9.2 fl (7.0-11.0); RBC 3.31 10^6/uL (3.5-6.1); WHITE BLOOD COUNT 6.2 10^3/ul (4.5-11.0)
[2017-05-19 07:52] LABS: ALB/GLOB RATIO 1.1 (1.1-1.8); ALBUMIN 3.5 g/dL (3.0-4.8); CALCIUM 9.5 mg/dL (8.4-10.5); MAGNESIUM 2.3 mg/dL (1.7-2.2)
--- NOTE | 2017-05-19 08:31 | PQF CHF ---
This form is a permanent part of the medical record Clarification of your documentation is requested to better reflect the severity of illness and intensity of treatment of your patient. Indicators present 2/5 documentation of left CHF. Please clarify acuity & type POA [x] Diagnosis of CHF and/or history of CHF [x] BNP > 200 [x] Imaging Finding of Pulmonary Edema /Pleural Effusions [] Fluid/Volume Overload [] Pitting edema [] Ejection Fraction < 40% (Indicative of Systolic Heart Failure) [] Ejection Fraction > 40% (Indicative of Diastolic Heart Failure) [x] Dyspnea / Orthopenea / Paroxysmal Nocturnal Dyspnea [] Other: Location in the medical record that reflects the above clinical findings: [x] Card - PN 2/5 Treatment Provided: [x]IV Lasix, Rt chest tube placement PHYSICIAN'S RESPONSE Based on your medical judgment of the clinical indicators outlined above, are you treating this patient for a known or suspected: [] Acute CHF [] Systolic [] Diastolic [] Combined [] Chronic CHF [] Systolic [] Diastolic [] Combined [] Acute on Chronic CHF []Systolic [] Diastolic [] Combined [] CHF due hypertension [] Acute systolic []Chronic systolic [] Acute/ chronic systolic [] Other, please indicate: [] [] If Unable to Determine, please check the box, sign and date. Present On Admission (POA) Indicator: [] Present at the time of admission [] Not present at the time of admission [] Clinically Undetermined In responding to this query, please exercise your independent professional judgment. The fact that a question is asked does not imply that any particular answer is desired or expected. Thank you for your clarification on this documentation. If you have any questions please call:[ ] [phone] * Thank you, [ ] Judy Wharton RN CDS wood [employer] supervisor MORE[facility]
--- NOTE | 2017-05-19 08:36 | PN ---
DATE: 05/18/2017 SUBJECTIVE: The patient is currently seen post having a right chest tube placement. He states 3.5 L of pleural fluid were removed. He states his breathing is significantly better. He appears to be entirely comfortable. MEDICATIONS: Medication list reviewed. The patient is on Cellcept, Coreg, cyclosporin, Feosol, folic acid, IV Lasix, Lidoderm, Lovenox, Norvasc, Pepcid, Percocet p.r.n., Rocephin, Solu-Medrol, Xopenex and Zithromax. OBJECTIVE: INTAKE/OUTPUT: Intake is 840, output is 1175. VITAL SIGNS: Blood pressure ranging from 145-160 systolic, diastolic is ranging from 88-94. Heart rate is 86, temperature 97.8, respiratory rate 20. HEENT: Shows him to be normocephalic, atraumatic. Conjunctivae are pale. Sclerae nonicteric. NECK: Supple. No neck vein distention. CHEST: Clear to auscultation and percussion. Positive chest tube, right chest wall. CARDIOVASCULAR: Shows irregular rate and rhythm with tricuspid regurgitation. No S3, no S4, no rub. ABDOMEN: Soft. Mild distention. No tenderness appreciated. No masses. No rebound or guarding. EXTREMITIES: Show no significant pitting edema. No cyanosis or clubbing. LAB DATA AND IMAGING: Labs: CBC, white blood cell count 9.0, hemoglobin 9.0, platelet count is 195,000. Coags: PT of 13.2, INR 1.14. Chemistry showed normal electrolytes, BUN 68 with a creatinine of 1.9. The patient's baseline BUN ranges anywhere from the 40s to the upper 60, low 70 range. Baseline creatinine is in the low 2 range. Glucose is 150. Calcium 9.5. Magnesium 2.4, phosphorus of 3.2. Bilirubin normal. Mild elevation of his AST of 65. Alkaline phosphatase is 361. BNP is mildly elevated at 9360. LDH is 665. Albumin 3.6. Urine showed no protein. Cyclosporin level was 49.7 from 3 days ago. Microbiology: No cultures were sent. ASSESSMENT: 1. Prerenal azotemia, appears to be stable in nature. The patient has underlying chronic kidney disease stage 3. He states his baseline creatinine is in the low 2 range. The patient was told in the liver transplant clinic that he might have nephrotoxicity, chronic in nature secondary to long-term use of calcineurin inhibitors, initially Prograf and now cyclosporin. No proteinuria noted. 2. History of liver transplant in 2002 secondary to cirrhosis and possible alcohol use. 3. History of hypertension. The patient's blood pressure is in the upper range of acceptability. The patient continues on calcium channel doris therapy. He is not using angiotensin-converting enzyme inhibitors, angiotensin receptor blockers because of his chronic kidney disease stage 3. 4. Large right-sided pleural effusion, status post placement of a right-sided chest tube. 3.5 L of fluid were drained. The patient is symptomatically improved. 5. History of pulmonary hypertension with tricuspid regurgitation with ejection fraction 53%. 6. Mild anemia with a normal iron saturation of 24%, likely secondary to chronic kidney disease. 7. A 5 cm pancreatic cystic mass, appears to be stable in nature. PLAN: 1. As discussed with the patient, it would be important to try and decrease the need for IV diuretic therapy in light of the fact that the large right-sided pleural effusion had been drained. The patient has no significant lower extremity edema. No evidence of CHF. I would favor transitioning him over to oral Lasix at a lower dose. 2. Attempt to taper steroids when able. This will help lower his BUN also. 3. Continue present medication for his liver transplant. The patient is off p.o. prednisone, but he continues on Cellcept and cyclosporin. 4. Taper steroids when able. 5. Continue to monitor labs on a daily basis. 6. Continue to follow accurate I's and O's. 7. Favor switching the patient over to oral Lasix therapy with perhaps a lower dose. 8. Continue present medications for his liver transplant. 9. Question duration of antibiotic therapy. The patient is currently on Rocephin and Zithromax. 10. Discussed with the patient the need for renal followup in the outpatient setting. He would like to follow with our practice. He would likely see Dr. Pike in the outpatient setting. Krish Rueda MD
--- NOTE | 2017-05-19 09:02 | PN ---
DATE: 05/18/2017 I reviewed the chart, the detailed note from Dr. Gutierrez. The patient is known to have a liver transplant with increasing shortness of breath with several falls on the side with a broken rib, I believe, in the past. Increasing pleural effusion is noted. White count is normal. CAT scan is reviewed. It is noted that the BUN is 68, creatinine 1.9, glucose 150; AST 65, alk phos 361; with the CAT scan showing possible effusion by the liver and a small pseudocyst. The chest tube placement last night was unsuccessful, possibly because of the thick . Dr. Whitlock is contacted who will place a percutaneous tube about 12:30 today. Marco Og MD
--- NOTE | 2017-05-19 09:20 | CP.PCM.PN ---
Subjective - Date & Time of Evaluation Date of Evaluation: 05/19/17 Time of Evaluation: 09:17 - Subjective Subjective: Surgery: Dr. Og Patient reports feeling better today. Patient s/p pigtail catheter insertion for right pleural effusion. Patient tolerated procedure well. Reports using IS frequently. CT output about 500cc/12hr serous fluid. Chest tube remains on suction. Objective - Vital Signs/Intake and Output Vital Signs (last 24 hours): Temp Pulse Resp BP Pulse Ox 97.8 F 79 20 144/79 94 L 05/19/17 06:00 05/19/17 06:00 05/19/17 06:00 05/19/17 06:00 05/19/17 06:00 Intake and Output: 05/19/17 05/19/17 06:59 18:59 Intake Total 480 Balance 480 - Medications Medications: Current Medications Amlodipine Besylate (Norvasc) 5 mg PO BID [facility] Last Admin: 05/18/17 17:20 Dose: 5 mg Azithromycin (Zithromax) 250 mg PO DAILY [facility] Last Admin: 05/18/17 09:07 Dose: 250 mg Carvedilol (Coreg) 12.5 mg PO BID [facility] Last Admin: 05/18/17 17:19 Dose: 12.5 mg Enoxaparin Sodium (Lovenox) 30 mg SC DAILY [facility] PRN Reason: Protocol Last Admin: 05/18/17 09:26 Dose: Not Given Famotidine (Pepcid) 20 mg PO BID [facility] Last Admin: 05/18/17 17:20 Dose: 20 mg Ferrous Sulfate (Feosol) 324 mg PO TID [facility] Last Admin: 05/18/17 17:20 Dose: 324 mg Folic Acid (Folic Acid) 1 mg PO DAILY [facility] Last Admin: 05/18/17 09:07 Dose: 1 mg Furosemide (Lasix) 40 mg IVP DAILY [facility] Last Admin: 05/18/17 09:08 Dose: 40 mg Ceftriaxone Sodium (Rocephin 1 Gram Ivpb) 1 gm in 100 mls @ 100 mls/hr IVPB DAILY [facility] PRN Reason: Protocol Stop: 05/19/17 10:59 Last Admin: 05/18/17 09:09 Dose: 100 mls/hr Levalbuterol HCl (Xopenex) 0.63 mg IH Q6H [facility] Last Admin: 05/19/17 07:57 Dose: 0.63 mg Lidocaine (Lidoderm) 1 ea TD DAILY [facility] Last Admin: 05/18/17 09:10 Dose: 1 ea Mycophenolate Mofetil (Cellcept Cap) 1,250 mg PO BID [facility] Last Admin: 05/18/17 17:20 Dose: 1,250 mg Non-Formulary Medication (Cyclosporine, Modified [Neoral]) 50 mg PO BID [facility] Last Admin: 05/18/17 17:21 Dose: 50 mg Oxycodone/Acetaminophen (Percocet 5/325 Mg Tab) 1 tab PO Q6H PRN PRN Reason: Pain, moderate (4-7) Stop: 05/21/17 14:39 Last Admin: 05/18/17 22:09 Dose: 1 tab - Labs Labs: 05/19/17 06:00 05/19/17 06:00 PT 13.2 SECONDS (9.4-12.5) H 05/18/17 05:15 INR 1.14 (0.93-1.08) H 05/18/17 05:15 APTT 29.5 Seconds (25.1-36.5) 05/17/17 08:55 - Constitutional Appears: Well, Non-toxic, No Acute Distress - Head Exam Head Exam: ATRAUMATIC, NORMOCEPHALIC - Eye Exam Eye Exam: EOMI, Normal appearance - ENT Exam ENT Exam: Mucous Membranes Moist - Respiratory Exam Respiratory Exam: NORMAL BREATHING PATTERN. absent: Respiratory Distress - Cardiovascular Exam Cardiovascular Exam: REGULAR RHYTHM. absent: Tachycardia - GI/Abdominal Exam GI & Abdominal Exam: Soft. absent: Distended, Tenderness - Neurological Exam Neurological Exam: Alert, Awake - Psychiatric Exam Psychiatric exam: Normal Affect, Normal Mood - Skin Skin Exam: Warm Assessment and Plan - Assessment and Plan (Free Text) Assessment: 61 y/o male with large right sided pleural effusion s/p right IR pigtail catheter drain placement POD1 Plan: -CXR: pnx remains, possible worsening on am CXR (pending final read) however patient overall respiratory status improved: may consider increasing pleurovac suction vs 2nd tube placement if pneumothorax does not resolve -encourage deep breathing exercises -daily CXR -monitor output -OOB -will d/w Dr. Og [facility] PGY3
[2017-05-19] MEDS: Lidocaine 5% Patch TD SCH (09:34)
[2017-05-19] MEDS: Enoxaparin 30 mg Syringe SC SCH (09:35)
[2017-05-19] MEDS: cefTRIAXone 1 gm 1 GM/100 ML BAG IVPB SCH (09:36)
[2017-05-19] MEDS: CYCLOSPORINE MODIFIED 50 MG PO SCH ×2 (09:36→18:43)
--- NOTE | 2017-05-19 09:45 | PN ---
DATE: 05/19/2017 PULMONARY NOTE SUBJECTIVE: The patient appears comfortable this morning. He is not short of breath at rest. PHYSICAL EXAMINATION VITAL SIGNS: Temperature is 97.8, pulse is 79, respirations 18, blood pressure 144/79. Oxygen saturation on nasal cannula is 94%-99%. HEENT: Normocephalic, atraumatic. No JVD. CARDIOVASCULAR: Positive S1, S2. Positive S3 gallop. LUNGS: Increased breath sounds - right lung. Decreased breath sounds at the left base. No rhonchi. No wheezing. EXTREMITIES: Positive for mild edema. No cyanosis or clubbing. Calves are nontender to palpation. GI: Abdomen is soft, nontender and nondistended. Bowel sounds are positive. SKIN: No acute rash. + right chest tube in place. NEUROLOGIC: Limited at the present time. PERTINENT LABORATORY DATA: Chest x-ray was done yesterday afternoon and reviewed. There appears to be complete evacuation of the right pleural effusion. There is a right basilar pneumothorax. IMPRESSION: 1. Recurrent congestive heart failure. 2. Chronic pleural effusions - very large/increasing right pleural effusion. Status post chest tube. 3. Acute on chronic kidney disease. 4. Chronic anemia. 5. Status post liver transplant. PLAN: The patient appears very comfortable this morning. He is not short of breath at rest. He does state to feeling much, much better overall. I did discuss the case with the night nurse at length. The night nurse informed me that the chest tube put out over 4 liters of fluid. I did review the last chest x-ray - as above. There appears to be complete evacuation of the right pleural effusion. There is a right basilar pneumothorax. I would continue with the chest tube management as per Dr. Jose Martin Whitlock. Repeat chest x-ray is ordered for today. On physical exam, there is no significant bronchospasm noted. In addition, there is no significant alveolar-arterial gradient. I will continue the current nebulizer treatments and discontinue the intravenous steroids for now. Surgical input is noted. We are awaiting additional pleural fluid study results. Clinical status of the patient is certainly improved - compared to the initial presentation. I will discuss the above with Dr. Elliott this morning. Terry Nick MD MTDYna
--- NOTE | 2017-05-19 09:56 | RAD ---
HISTORY: rt chest tube COMPARISON: 05/18/2017 FINDINGS: LUNGS: There is an increase in the right-sided pneumothorax. The edge of the lung is now 7 cm from the lung apex. A basilar pneumothorax is again demonstrated. There is a small caliber chest tube in the right costophrenic angle. There is now consolidation of the collapse lung with increased density. PLEURA: There is a new left-sided pleural effusion CARDIOVASCULAR: Normal. OSSEOUS STRUCTURES: No significant abnormalities. VISUALIZED UPPER ABDOMEN: Normal. OTHER FINDINGS: The findings were discussed with Dr. Nick at 9:45 a.m. IMPRESSION: There is an increase in the right-sided pneumothorax. The edge of the lung is now 7 cm from the lung apex. A basilar pneumothorax is again demonstrated. There is a small caliber chest tube in the right costophrenic angle. There is now consolidation of the collapse lung with increased density.
--- NOTE | 2017-05-19 12:26 | RAD ---
HISTORY: collapsed lung COMPARISON: May 19, 2017. Time of the most recent examination: 08:00 FINDINGS: LUNGS: Progressive collapse right lung without evidence of tension pneumothorax. Stable consolidative changes left lower lobe. PLEURA: Increasing right pneumothorax without evidence of tension pneumothorax. Stable left pleural effusion. CARDIOVASCULAR: Normal. OSSEOUS STRUCTURES: No significant abnormalities. VISUALIZED UPPER ABDOMEN: Normal. OTHER FINDINGS: None. IMPRESSION: Progressive collapse right lung, increasing right pneumothorax without evidence tension. Stable findings left hemithorax including left lower lobe infiltrate and left pleural effusion.
--- NOTE | 2017-05-19 13:44 | PN ---
DATE: SUBJECTIVE: I have seen him sitting up in bed. He has a chest tube in the right side of his chest, draining bloody liquid. He had 4 liters of fluid taken out of his right lung. He is breathing much better and doing much better on his breathing, incentive spirometry. He is more comfortable , although discomfort, but overall improved. PHYSICAL EXAMINATION: VITAL SIGNS: He has a 97.8 temperature, 79 pulse, 144/79 blood pressure, 20 respiratory rate, 94% O2 sat on room air. HEENT: Head is atraumatic, normocephalic. Throat is moist. NECK: Supple. HEART: Regular rate. LUNGS: Clear on both sides, maybe the right side is little congested, but much better and airway through out the lung. ABDOMEN: Soft. EXTREMITIES: No edema. He is currently on CellCept, Coreg, Cyclosporine, Feosol, folic acid, Lasix, Lidoderm, Lovenox, Norvasc, Pepcid, Percocet, Rocephin, Xopenex, azithromycin. LABORATORY DATA: He has 139 sodium, potassium 4.4, BUN is 73, creatinine is 1.6. GFR is 44. Sugar is 149, calcium is 9.5, magnesium 2.3, total bilirubin is 1, AST is 111, ALT is 115, alkaline phosphatase is 346, BNP was total protein 6.7. PLAN: He is being seen by Cardiology, Surgery, intervention radiologist, Pulmonology. He is much better. He has had a small pneumothorax, but the pleural effusion is gone. We will continue as per Pulmonary and Surgery, Interventional Radiology. Chest x-ray shows placement of pigtail chest tube at the right lung base posteriorly. There has been successful drainage of large pleural effusion with the small basilar pneumothorax, 3.3 cm from the chest wall. We will continue with aggressive treatment and care. I think he is doing much better. Check the labs tomorrow. improving. Giovanny Elliott DO MTDYan
[2017-05-19] MEDS ORDERED: Lidocaine 2% Inj (20ml) ONE (14:51)
[2017-05-19] MEDS ORDERED: HEPARIN SODIUM/NS 2,000 ML IV ONE (14:52)
[2017-05-19] MEDS ORDERED: Midazolam 2 MG/2 ML VIAL ONE (14:52)
[2017-05-19] MEDS ORDERED: Iodixanol 320 MG/ML 100 ML BOTTLE IV ONE (16:16)
--- NOTE | 2017-05-19 16:27 | PN ---
DATE: 05/19/2017 CARDIOLOGY FOLLOWUP SUBJECTIVE: The patient's breathing is better after chest tube placement. The drainage is significant. PHYSICAL EXAMINATION: VITAL SIGNS: Blood pressure is 150/90, heart rates in the 70s. NECK: Negative JVD. LUNGS: Better breath sounds after chest tube replacement. HEART: Reveal S1 and S2. EXTREMITIES: Without edema. LABORATORY DATA: Hemoglobin is 9.4. Chemistries: BUN and creatinine are 73 and 1.6. IMPRESSION: 1. Pleural effusion. 2. Dyspnea, which is better after the chest tube placement with drainage. 3. History of liver transplantation. 4. Hypertension. 5. Dyspnea, which is better. PLAN: Given these findings, we will continue the NG tube, waiting for Pulmonary decision on how to handle continuing recurrent pleural effusion. Jose Martin Mccormack MD
--- NOTE | 2017-05-19 16:45 | PN ---
DATE: 05/19/2017 SUBJECTIVE: The patient is seen sitting in bed. He is awake, he is alert, he is comfortable. He has a right chest tube. PHYSICAL EXAMINATION: GENERAL: Thinly built elderly male,, sitting in bed. VITAL SIGNS: Blood pressure 150/90, heart rate 78, respiratory rate 80, temperature 97.8. HEENT: Normocephalic, atraumatic, positive pallor. NECK: Supple, no JVD. LUNGS: Bilateral equal air entry; bilateral equal expansion; decreased breath sounds, right base. CARDIAC: S1 and S2, regular rate and rhythm, no murmur, no rub. ABDOMEN: Soft, nondistended, nontender, bowel sounds present. EXTREMITIES: No lower extremity edema. LABORATORY DATA: WBC 6.2, hemoglobin 9.4, hematocrit 28, platelets 198. Sodium 139, potassium 4.4, chloride 103, CO2 of 33, BUN 73, creatinine 1.6, glucose 149, calcium 9.5, phosphorus 3.7, magnesium 2.3, AST 111, ALT 115. BNP 9360, albumin 3.5. Pleural fluid cloudy, rbc's 2138. CURRENT MEDICATIONS: CellCept 1250 b.i.d., Coreg 12.5 b.i.d., cyclosporin 50 b.i.d., Feosol, folic acid, Lasix 40 IV daily, Lidoderm, enoxaparin, amlodipine 5, Pepcid, Percocet, Xopenex, Zithromax. ASSESSMENT: 1. Acute kidney injury superimposed on chronic kidney disease stage 3, resolving acute kidney injury. 2. Right-sided pleural effusion, status post chest tube. 3. Liver transplant, ascites. 4. Hypertension. PLAN: 1. Continue chest tube drainage. 2. Continue immunosuppression for the liver transplant. 3. Cyclosporin level is acceptable. 4. Avoid nephrotoxins. 5. Continue current antihypertensives. Lu Pike MD
[2017-05-19] MEDS: Oxycodone/Acetaminophen 5/325 mg Tab PO PRN (22:11)
[2017-05-20] MEDS: Levalbuterol 0.63 MG/3 ML Inhal Soln UD IH SCH ×4 (02:11→20:57)
[2017-05-20 07:07] LABS: HEMOGLOBIN 9.4 g/dL (14.0-18.0); MEAN CELL VOLUME 85.5 fl (80.0-105.0); MEAN CORPUSCULAR HEMOGLOBIN 28.5 pg (25.0-35.0); MEAN CORPUSCULAR HGB CONC 33.3 g/dl (31.0-37.0); MEAN PLATELET VOLUME 9.3 fl (7.0-11.0); RBC 3.3 10^6/uL (3.5-6.1); RED CELL DISTRIBUTION WIDTH 12.7 % (11.5-14.5); WHITE BLOOD COUNT 7.1 10^3/ul (4.5-11.0)
[2017-05-20 07:09] LABS: ALB/GLOB RATIO 1.1 (1.1-1.8); CALCIUM 9.1 mg/dL (8.4-10.5)
--- NOTE | 2017-05-20 08:12 | CP.PCM.PN ---
Subjective - Date & Time of Evaluation Date of Evaluation: 05/20/17 Time of Evaluation: 08:08 - Subjective Subjective: Surgery: Dr. Og Patient feeling well today. SOB improved. Nonproductive cough overnight. Reports using IS. Patient s/p pigtail catheter exchange. Objective - Vital Signs/Intake and Output Vital Signs (last 24 hours): Temp Pulse Resp BP Pulse Ox 98.6 F 78 20 133/78 98 05/20/17 05:58 05/20/17 05:59 05/20/17 05:58 05/20/17 05:58 05/20/17 05:58 Intake and Output: 05/20/17 05/20/17 06:59 18:59 Intake Total 360 Output Total 900 Balance -540 - Medications Medications: Current Medications Amlodipine Besylate (Norvasc) 5 mg PO BID [facility] Last Admin: 05/19/17 18:43 Dose: 5 mg Azithromycin (Zithromax) 250 mg PO DAILY [facility] Last Admin: 05/19/17 09:36 Dose: 250 mg Carvedilol (Coreg) 12.5 mg PO BID [facility] Last Admin: 05/19/17 18:43 Dose: 12.5 mg Enoxaparin Sodium (Lovenox) 30 mg SC DAILY [facility] PRN Reason: Protocol Last Admin: 05/19/17 09:35 Dose: 30 mg Famotidine (Pepcid) 20 mg PO BID [facility] Last Admin: 05/19/17 18:43 Dose: 20 mg Ferrous Sulfate (Feosol) 324 mg PO TID [facility] Last Admin: 05/19/17 18:43 Dose: 324 mg Folic Acid (Folic Acid) 1 mg PO DAILY [facility] Last Admin: 05/19/17 09:37 Dose: 1 mg Furosemide (Lasix) 40 mg IVP DAILY [facility] Last Admin: 05/19/17 09:35 Dose: 40 mg Levalbuterol HCl (Xopenex) 0.63 mg IH Q6H [facility] Last Admin: 05/20/17 07:54 Dose: 0.63 mg Lidocaine (Lidoderm) 1 ea TD DAILY [facility] Last Admin: 05/19/17 09:34 Dose: 1 ea Mycophenolate Mofetil (Cellcept Cap) 1,250 mg PO BID [facility] Last Admin: 05/19/17 18:43 Dose: 1,250 mg Non-Formulary Medication (Cyclosporine, Modified [Neoral]) 50 mg PO BID [facility] Last Admin: 05/19/17 18:43 Dose: 50 mg Oxycodone/Acetaminophen (Percocet 5/325 Mg Tab) 1 tab PO Q6H PRN PRN Reason: Pain, moderate (4-7) Stop: 05/21/17 14:39 Last Admin: 05/19/17 22:11 Dose: 1 tab - Labs Labs: 05/20/17 05:30 05/20/17 05:30 PT 13.2 SECONDS (9.4-12.5) H 05/18/17 05:15 INR 1.14 (0.93-1.08) H 05/18/17 05:15 APTT 29.5 Seconds (25.1-36.5) 05/17/17 08:55 - Constitutional Appears: Non-toxic, No Acute Distress - Head Exam Head Exam: ATRAUMATIC, NORMOCEPHALIC - Eye Exam Eye Exam: EOMI, Normal appearance - ENT Exam ENT Exam: Mucous Membranes Moist - Respiratory Exam Respiratory Exam: NORMAL BREATHING PATTERN. absent: Respiratory Distress - Cardiovascular Exam Cardiovascular Exam: REGULAR RHYTHM. absent: Tachycardia - GI/Abdominal Exam GI & Abdominal Exam: Soft. absent: Distended, Tenderness - Neurological Exam Neurological Exam: Alert, Awake - Psychiatric Exam Psychiatric exam: Normal Affect, Normal Mood - Skin Skin Exam: Dry, Warm Assessment and Plan - Assessment and Plan (Free Text) Assessment: 61 y/o male w/ right hydrothorax s/p right pigtail chest tube placement Plan: -pigtail exchanged for larger size yesterday with overall improvement of pneumothorax however still persistant -cont CT on suction at 40mmHg -f/u final CXR read -may need surgical chest tube -possible chest CT for further evaluation -cont IS use -will discuss with Dr. Earle Love PGY3
--- NOTE | 2017-05-20 08:38 | PN ---
DATE: 05/20/2017 PULMONARY NOTE SUBJECTIVE: The patient appears comfortable this morning. He is not short of breath at rest. PHYSICAL EXAMINATION VITAL SIGNS: Temperature is 98.6, pulse is 78, respirations 18/20, blood pressure 133/78. Oxygen saturation on nasal cannula is 98%. HEENT: Normocephalic, atraumatic. No JVD. CARDIOVASCULAR: Positive S1, S2. Positive S3 gallop. LUNGS: Increased breath sounds - right lung. Decreased breath sounds at both bases. No rhonchi. No wheezing. EXTREMITIES: Positive for mild edema. No cyanosis, no clubbing. Calves are nontender to palpation. GI: Abdomen is soft, nontender and nondistended. Bowel sounds are positive. SKIN: No acute rash. The right chest tube has been replaced(different location ). NEUROLOGIC: Limited at the present time. IMPRESSION: 1. Recurrent congestive heart failure. 2. Chronic pleural effusions - very large/increasing right pleural effusion. Status post chest tube. 3. Right pneumothorax. 4. Acute on chronic kidney disease. 5. Chronic anemia. 6. Status post liver transplant. PLAN: The patient appears comfortable this morning. He is not short of breath at all. He does state to feeling better overall. On physical exam, there is no significant bronchospasm noted. In addition, the oxygen saturation on nasal cannula is now 98%. I will continue the current nebulizer treatments for now. I did discuss the case with the night nurse at length. I also reviewed the chart at length. A second chest tube was placed by Dr. Jose Martin Whitlock yesterday. We are awaiting the a.m. chest x-ray. We are also awaiting additional pleural fluid study results. Clinical status of the patient remains very guarded. I will discuss the above with Dr. Elliott this morning. Terry Nick MD MTDD
[2017-05-20] MEDS: CYCLOSPORINE MODIFIED 50 MG PO SCH ×2 (09:14→17:09)
[2017-05-20] MEDS: Enoxaparin 30 mg Syringe SC SCH (09:19)
[2017-05-20] MEDS: Lidocaine 5% Patch TD SCH (09:20)
--- NOTE | 2017-05-20 13:42 | PN ---
DATE: SUBJECTIVE: I saw Kelechi resting in bed this morning. He is breathing well. He tells me that it is up to 1250 on his incentive spirometry. He had a rough go yesterday with a pneumothorax. It is much better. His total pneumothorax is much more open lung, I had to reposition the chest tube. He is alert. Slept fairly well. He is eating some. Not short of breath, he is without oxygen. OBJECTIVE VITAL SIGNS: Temperature 98.6, 80 pulse, 133/70 blood pressure, 20 respirations, 98% O2 saturation, off oxygen at this time. HEENT: Head is atraumatic, normocephalic. Throat is moist. NECK: Supple. HEART: Regular rate. LUNGS: Air moving, both lungs right one much improved. ABDOMEN: Soft, nontender. Positive bowel sounds. EXTREMITIES: No edema. MEDICATIONS: He is currently on CellCept, Coreg, cyclosporine, Feosol, folic acid, Lasix, Lidoderm, Lovenox, Norvasc, Pepcid, Percocet, Xopenex, Zithromax. DATA: He has a 7.1 white count, 9.4 hemoglobin, 28.2 hematocrit, 493,000 platelets. Sodium 138, potassium 3.9, BUN 73, creatinine 1.6, GFR is 44, sugar is 105, calcium is 9.1, magnesium is 2.3, total bilirubin is 0.7, AST is 85, ALT is 113, alkaline phosphatase 298. BNP was 9360 and albumin is 5.8. Urine, moderate bacteria. He is being seen by Pulmonary, Renal, Cardiology, Interventional radiology. Chest x-ray is pending this morning. We will continue with aggressive treatment and care. Chest tube is in place, draining. We will check his labs tomorrow. He is here for almost complete white out of the right chest, CHF, pneumothorax, chest tube, renal insufficiency, history of liver transplant. Giovanny Elliott DO MTDD
--- NOTE | 2017-05-20 14:46 | RAD ---
HISTORY: reposition rt chest tube COMPARISON: 05/19/2017 FINDINGS: LUNGS: There is a decrease in the size of the large right-sided pneumothorax. There is a new larger caliber chest tube in place. There is hazy opacification of the right lung that is less dense than previously seen PLEURA: There is also a hazy infiltrate and small effusion on the left unchanged CARDIOVASCULAR: Normal. OSSEOUS STRUCTURES: No significant abnormalities. VISUALIZED UPPER ABDOMEN: Normal. OTHER FINDINGS: None. IMPRESSION: There is a decrease in the size of the large right-sided pneumothorax. There is a new larger caliber chest tube in place. There is hazy opacification of the right lung that is less dense than previously seen
--- NOTE | 2017-05-20 16:26 | VASCULAR ---
PROCEDURE: Fluoroscopic right chest tube change HISTORY: Large right pleural effusion. History liver transplant. Recent small bore chest tube placement. Residual large hydro pneumothorax. PHYSICIAN(S): Jose Martin Whitlock MD. TECHNIQUE: The relative risks and indications of the procedure were explained the patient consent obtained. The patient is placed the left decubitus position in the right small bore chest tube prepped and draped in the usual sterile fashion. Conscious sedation monitoring were provided throughout the procedure by a nurse. 1 percent xylocaine was used to anesthetize the skin soft tissues at the insertion site. 0.035 glidewire was advanced through the tube and coiled in the right pleural space. The old tube was removed. A new larger 14 Indonesian pigtail chest tube was advanced over the guidewire and advanced superiorly. The catheter was flushed and secured. The tube was placed to 40 cm H2O low continuous suction. The patient tolerated the procedure well. IMPRESSION: 1. Fluoroscopic right chest tube replacement as described above.
--- NOTE | 2017-05-20 18:57 | PN ---
DATE: 05/20/2017 SUBJECTIVE: The patient is seen lying in bed. He is awake, he is alert, is comfortable. He is resting. PHYSICAL EXAMINATION: GENERAL: Thinly built elderly male, lying in bed. VITAL SIGNS: Blood pressure 138/80, heart rate 77, respiratory rate 17, temperature 98.4. HEENT: Normocephalic, atraumatic, positive pallor. NECK: Supple, no JVD. LUNGS: Bilateral equal air entry, decreased breath sounds right base, equal expansion. CARDIAC: S1 and S2, regular rate and rhythm, no murmur, no rub. ABDOMEN: Soft, nondistended, nontender, bowel sounds present. EXTREMITIES: 1+ pitting edema of the lower extremities. INTAKE AND OUTPUT: 1490/1854. LABORATORY DATA: WBC 7, hemoglobin 9.4, hematocrit 28, platelets 193. Sodium 138, potassium 3.9, chloride 103, CO2 of 24, BUN 73, creatinine 1.6, glucose 105, calcium 9.1, AST 85, ALT 113. Fluid culture negative. ASSESSMENT: 1. Right pleural effusion, status post chest tube placement. 2. Ascites. 3. History of liver transplant. 4. Hypertension. 5. Chronic kidney disease, stage III. 6. Resolved acute kidney injury. PLAN: 1. Continue Lasix. 2. Monitor chest tube output. 3. Continue anti-rejection medications. 4. Avoid nephrotoxins. Lu Pike MD
[2017-05-20] MEDS ORDERED: POLYETHYLENE GLYCOL 3350 17 GM/Dose PACKET PO ONE (22:18)
--- NOTE | 2017-05-20 23:40 | PN ---
DATE: 05/20/2017 CARDIOLOGY FOLLOWUP SUBJECTIVE: The patient is comfortable, without shortness of breath. He is off nasal O2. PHYSICAL EXAMINATION: VITAL SIGNS: Blood pressure is 138/80, the heart rate is in the 70s. NECK: Negative JVD. LUNGS: Better breath sounds with manipulation of the chest tube. HEART: Reveals S1 and S2. EXTREMITIES: Without edema. LABORATORY DATA: Hemoglobin is 9.4. Chemistries: BUN and creatinine are 73 and 1.6, with a potassium of 3.9. IMPRESSION: 1. Improvement of the pleural effusion. 2. History of liver transplantation. 3. Hypertension. 4. Resolution of dyspnea. PLAN: Given these findings, and the chest tube is still draining well, he will need long-term solution to his recurrent pleural effusions. Awaiting for analysis. Jose Martin Mccormack MD
[2017-05-20 23:54] LABS: TOTAL PROTEIN PLEURAL FLUID 3.5 g/dL
[2017-05-21 00:08] LABS: CEA PLEURAL FLUID 1.3 ng/mL (<10.0)
[2017-05-21] MEDS: Levalbuterol 0.63 MG/3 ML Inhal Soln UD IH SCH ×4 (02:32→20:20)
[2017-05-21 07:03] LABS: HEMOGLOBIN 10.1 g/dL (14.0-18.0); MEAN CELL VOLUME 84.9 fl (80.0-105.0); MEAN CORPUSCULAR HEMOGLOBIN 28.3 pg (25.0-35.0); MEAN CORPUSCULAR HGB CONC 33.3 g/dl (31.0-37.0); MEAN PLATELET VOLUME 9.2 fl (7.0-11.0); RBC 3.57 10^6/uL (3.5-6.1); RED CELL DISTRIBUTION WIDTH 13.1 % (11.5-14.5); WHITE BLOOD COUNT 8.1 10^3/ul (4.5-11.0)
[2017-05-21 07:14] LABS: ALB/GLOB RATIO 1.1 (1.1-1.8); ALBUMIN 3.1 g/dL (3.0-4.8); CALCIUM 9.2 mg/dL (8.4-10.5)
--- NOTE | 2017-05-21 08:17 | PN ---
DATE: 05/21/2017 PULMONARY NOTE SUBJECTIVE: The patient appears very comfortable at rest. He is not short of breath. PHYSICAL EXAMINATION VITAL SIGNS: Temperature is 98.1, pulse is 82, respirations 18, blood pressure 164/91. Oxygen saturation on room air is 95%-96%. HEENT: Normocephalic, atraumatic. No JVD. CARDIOVASCULAR: Positive S1, S2. Positive S3 gallop. LUNGS: Increased breath sounds - right lung (still somewhat decreased at the right apex). Decreased breath sounds at both bases. No rhonchi. No wheezing. EXTREMITIES: Less edema. No cyanosis, no clubbing. Calves are nontender to palpation. GI: Abdomen is soft, nontender and nondistended. Bowel sounds are positive. SKIN: No acute rash. Right chest tube in place. NEUROLOGIC: Limited at the present time. PERTINENT LABORATORY DATA: Chest x-ray was last done yesterday. The chest x-ray done yesterday is improved-- with a decrease in the size of the right pneumothorax. The hazy opacification of the right lung is also much less dense than seen previously. IMPRESSION: 1. Recurrent congestive heart failure. 2. Chronic pleural effusions - very large/increasing right pleural effusion. Status post chest tube. 3. Right pneumothorax. 4. Acute on chronic kidney disease. 5. Chronic anemia. 6. Status post liver transplant. PLAN: The patient appears very comfortable this morning. He is not short of breath. He states he "feels fine" this morning. On physical exam, there is better breath sounds noted to the right lung (still decreased at the right apex). In addition, there is no significant alveolar-arterial gradient. Oxygen saturation on room air is now 95%-96%. I will continue the current nebulizer treatments for now. Repeat chest x-ray is ordered for the morning. I will check that when feasible. Inputs by Renal, Cardiology, and Surgery are also noted. Some of the pleural fluid studies area back. The pleural effusion appears to be borderline transudate/exudate. The total protein is slightly high (3.5), however, the LDH is low (97). Given that these effusions have been present for quite a while, the overall picture of the pleural fluid is one of a transudate. Cultures are so far negative. Cytology is pending. Clinical status of the patient is certainly improved - compared to the initial presentation. However, he does remain guarded overall. I will discuss the above with Dr. Elliott later this morning. Terry Nick MD MORENA
--- NOTE | 2017-05-21 08:49 | PN ---
Kelechi Soto is seen. Dr. Whitlock replaced the tube with larger one and the pneumothorax is mostly resolved; although there is an apical pneumothorax, it is markedly better. If this intervention does not work, a larger operative tube will be placed. Marco gO MD
--- NOTE | 2017-05-21 09:47 | CP.PCM.PN ---
Subjective - Date & Time of Evaluation Date of Evaluation: 05/21/17 Time of Evaluation: 09:46 - Subjective Subjective: Surgery: Dr. Og Patient feeling well. Denies SOB. Per nursing chest tube remained on suction, 150cc/sa output overnight. Objective - Vital Signs/Intake and Output Vital Signs (last 24 hours): Temp Pulse Resp BP Pulse Ox 98.1 F 82 20 164/91 H 95 05/21/17 06:00 05/21/17 06:00 05/21/17 06:00 05/21/17 06:00 05/21/17 06:00 Intake and Output: 05/21/17 05/21/17 06:59 18:59 Intake Total 180 Output Total 1555 Balance -1375 - Medications Medications: Current Medications Amlodipine Besylate (Norvasc) 5 mg PO BID [facility] Last Admin: 05/20/17 17:04 Dose: 5 mg Azithromycin (Zithromax) 250 mg PO DAILY [facility] Last Admin: 05/20/17 09:19 Dose: 250 mg Carvedilol (Coreg) 12.5 mg PO BID [facility] Last Admin: 05/20/17 17:04 Dose: 12.5 mg Enoxaparin Sodium (Lovenox) 30 mg SC DAILY [facility] PRN Reason: Protocol Last Admin: 05/20/17 09:19 Dose: 30 mg Famotidine (Pepcid) 20 mg PO BID [facility] Last Admin: 05/20/17 17:04 Dose: 20 mg Ferrous Sulfate (Feosol) 324 mg PO TID [facility] Last Admin: 05/20/17 17:02 Dose: 324 mg Folic Acid (Folic Acid) 1 mg PO DAILY [facility] Last Admin: 05/20/17 09:22 Dose: 1 mg Furosemide (Lasix) 40 mg IVP DAILY [facility] Last Admin: 05/20/17 09:14 Dose: 40 mg Levalbuterol HCl (Xopenex) 0.63 mg IH Q6H [facility] Last Admin: 05/21/17 08:06 Dose: 0.63 mg Lidocaine (Lidoderm) 1 ea TD DAILY [facility] Last Admin: 05/20/17 09:20 Dose: 1 ea Mupirocin (Bactroban Ointment) 0 gm TOP BID [facility] Mycophenolate Mofetil (Cellcept Cap) 1,250 mg PO BID [facility] Last Admin: 02/08/18 17:04 Dose: 1,250 mg Non-Formulary Medication (Cyclosporine, Modified [Neoral]) 50 mg PO BID [facility] Last Admin: 05/20/17 17:09 Dose: 50 mg Oxycodone/Acetaminophen (Percocet 5/325 Mg Tab) 1 tab PO Q6H PRN PRN Reason: Pain, moderate (4-7) Stop: 05/21/17 14:39 Last Admin: 05/19/17 22:11 Dose: 1 tab - Labs Labs: 05/21/17 05:30 05/21/17 05:30 PT 13.2 SECONDS (9.4-12.5) H 05/18/17 05:15 INR 1.14 (0.93-1.08) H 05/18/17 05:15 APTT 29.5 Seconds (25.1-36.5) 05/17/17 08:55 - Constitutional Appears: Non-toxic, No Acute Distress - Head Exam Head Exam: ATRAUMATIC, NORMOCEPHALIC - Eye Exam Eye Exam: EOMI, Normal appearance - ENT Exam ENT Exam: Mucous Membranes Moist - Respiratory Exam Respiratory Exam: NORMAL BREATHING PATTERN. absent: Respiratory Distress - Cardiovascular Exam Cardiovascular Exam: REGULAR RHYTHM. absent: Tachycardia Assessment and Plan - Assessment and Plan (Free Text) Assessment: 61 y/o male w/ large right hydropneumothorax s/p pigtail catheter insertion Plan: -awaiting am CXR, pending imaging findings determine need for surgical chest tube -cont CT on suction at 40mmHg -possible chest CT for further evaluation -cont IS use -will discuss with Dr. Earle Love PGY3
[2017-05-21] MEDS: Enoxaparin 30 mg Syringe SC SCH (10:19)
[2017-05-21] MEDS: CYCLOSPORINE MODIFIED 50 MG PO SCH ×2 (10:22→18:33)
[2017-05-21] MEDS: Lidocaine 5% Patch TD SCH (10:24)
--- NOTE | 2017-05-21 11:50 | PN ---
DATE: SUBJECTIVE: I saw him this morning, resting comfortably in bed. He has got a chest tube in. It drained 260 the first 12 hours, now it is 155 the next 12 hours, so it was starting to decrease its drainage. He is very uncomfortable. He is in a little bit of pain. He has got something on the low back. He is looking for Neosporin or some kind of antibiotic cream for. I will get him some Bactroban cream. He is eating a little bit. He is uncomfortable and upset he is still in the hospital. MEDICATIONS: He is on CellCept, Coreg, cyclosporine, Feosol, folic acid, Lasix, Lidoderm, Lovenox, Norvasc, Pepcid, Percocet, Xopenex, Zithromax. PHYSICAL EXAMINATION: VITAL SIGNS: He has a 98.1 temp, 82 pulse, 164/91 blood pressure, 20 respiratory rate, 95% O2 sat on room air. HEENT: His head is atraumatic, normocephalic. Throat is moist. NECK: Supple. HEART: Regular rate. LUNGS: Clear to auscultation bilaterally. Even on the right side, there was nothing when he first came in. After the chest tube, he has got a full breath, is much better. ABDOMEN: Soft, nontender. Positive bowel sounds. EXTREMITIES: Have no edema. It is very difficult for him to move around and get out of bed to a chair, he will try, because of the pain from the chest tube. On the low back, he has some skin irritation. I will give him some Bactroban cream. LABORATORY DATA: He has an 8.1 white count, 10.1 hemoglobin, 30.3 hematocrit with a 213 platelets. He has a 138 sodium, potassium 3.7, BUN 66, creatinine 1.6, a little bit better. GFR is 44, sugar is 100, calcium is 9.2, total bili is 0.9, AST is 66, ALT is 111, alk phos is 302, total protein is 5.9. ASSESSMENT AND PLAN: He is being treated for many things. He has a complete whiteout of the right lung. Chest tube in place. Pneumothorax, congestive heart failure, urinary tract infection, renal insufficiency, history of liver transplant and he is improving. Hopefully, we will get the chest tube out over the weekend. He will be here. We will check his labs tomorrow. Discussed at length with the patient and Pulmonary. Giovanny Elliott DO
--- NOTE | 2017-05-21 12:49 | RAD ---
HISTORY: R pleural effusion S/P IR drain COMPARISON: Portable chest 05/20/2017 FINDINGS: LUNGS: Diminished mid right pulmonary infiltrate or atelectasis is noted with medial heck bibasilar atelectasis sequestered posterior to the right heart. Underlying left basilar atelectasis or infiltrate is questioned. PLEURA: Left pleural effusion is increased with none appreciated the right mild right pneumothorax is unchanged with right pleural catheter unchanged in position. No interval left pneumothorax appreciated. CARDIOVASCULAR: Prominent cardiac silhouette remains. No definite pulmonary vascular derangement identified at this time. OSSEOUS STRUCTURES: No significant abnormalities. VISUALIZED UPPER ABDOMEN: Normal. OTHER FINDINGS: None. IMPRESSION: Stable right pneumothorax with right pleural catheter unchanged in position. Improved aeration is appreciate the mid to inferior right lung though residual atelectasis remains at the medial right base. Increasing left pleural effusion with underlying atelectasis or infiltrate not excluded the left base. Cardiomegaly. No pulmonary vascular derangement appreciated.
[2017-05-21] MEDS: Potassium Chloride 20 mEq ER Tab PO SCH (15:01)
--- NOTE | 2017-05-21 15:33 | PN ---
DATE: FOLLOWUP Covering for Dr. Jose Martin Mccormack. SUBJECTIVE: The patient denies any chest pain. He still has chest tube drainage. PHYSICAL EXAMINATION: VITAL SIGNS: Blood pressure 147/79, heart rate 82, temperature 98.2, respirations 20. HEENT: Pale conjunctivae. CHEST: Diminished breath sounds over the right base. HEART: S1 and S2 regular. ABDOMEN: Moderate ascites. EXTREMITIES: Trace leg edema. LABORATORY DATA: Hemoglobin and hematocrit 10.1 and 30.3, white count and platelet count are within normal limits. Today's BUN and creatinine are 66 and 1.6. The rest of SMA-7 is within normal limit. EKG revealed sinus rhythm with low voltage, QRS, cannot rule out anteroseptal PR. Echocardiography study dating back to 11/2016 revealed good LV systolic function, mild to moderate pulmonary hypertension. Chest x-ray revealed left pleural effusion with chest tube catheter on the right side. ASSESSMENT: 1. Bilateral pleural effusion. 2. Status post liver transplant. 3. Systemic hypertension. 4. Mild to moderate pulmonary hypertension. 5. Acute renal insufficiency. RECOMMENDATIONS: Continue Coreg 12.5 mg twice a day, cyclosporin 50 mg twice a day, Lasix 40 mg intravenously once a day, Norvasc 5 mg once a day, oral Zithromax at 250 mg once a day. Terry Acosta MD
--- NOTE | 2017-05-21 17:01 | PN ---
DATE: 05/21/2017 SUBJECTIVE: The patient is seen, sitting in chair. He is awake, he is alert, he is comfortable. He denies any pain. He denies any shortness of breath. PHYSICAL EXAMINATION: GENERAL: Elderly male, sitting in bed. VITAL SIGNS: Blood pressure 147/79, heart rate 82, respiratory rate 18, and temperature 98.2. HEENT: Normocephalic, atraumatic. NECK: Supple, no JVD. LUNGS: Bilateral equal air entry, bilateral equal expansion, decreased breath sounds in the right side. CARDIAC: S1, S2, regular rate and rhythm, no murmur, no rub. ABDOMEN: Distended, soft, nontender, bowel sounds present. EXTREMITIES: No lower extremity edema. INTAKE AND OUTPUT: 180/1555. LABORATORY DATA: WBC 8.1, hemoglobin 10, hematocrit 30, and platelets 213. Sodium 138, potassium 3.7, chloride 103, CO2 of 22. BUN 66, creatinine 1.6. Glucose 100. Calcium 9.2. AST 66, ALT 111. Albumin 3.1. CURRENT MEDICATIONS: CellCept 1250 b.i.d., Coreg 12.5 b.i.d., cyclosporine 50 b.i.d., Feosol 325 t.i.d., folic acid, Lasix 40 IV daily, Lidoderm, Lovenox, amlodipine 5 b.i.d., Pepcid, Percocet, Xopenex, and Zithromax. ASSESSMENT: 1. Right pleural effusion, right lung whiteout. 2. Non-expansion of the chest tube. 3. Acute kidney injury, resolved. 4. Underlying chronic kidney disease stage 3, stable. 5. Cirrhosis of the liver, ascites, liver transplant. PLAN: 1. Continue Lasix 40 mg daily. 2. Keep O's greater than I's. 3. Replete potassium. 4. Continue immunosuppression. 5. Avoid nephrotoxins. 6. Monitor labs. 7. Patient is scheduled for surgical placement of large bore chest tube. Lu Pike MD
[2017-05-22] MEDS: Levalbuterol 0.63 MG/3 ML Inhal Soln UD IH SCH ×4 (02:25→20:00)
[2017-05-22 06:43] LABS: HEMOGLOBIN 10.5 g/dL (14.0-18.0); MEAN CELL VOLUME 85.7 fl (80.0-105.0); MEAN CORPUSCULAR HEMOGLOBIN 28.4 pg (25.0-35.0); MEAN CORPUSCULAR HGB CONC 33.1 g/dl (31.0-37.0); MEAN PLATELET VOLUME 8.7 fl (7.0-11.0); RBC 3.7 10^6/uL (3.5-6.1); RED CELL DISTRIBUTION WIDTH 13.4 % (11.5-14.5); WHITE BLOOD COUNT 7.5 10^3/ul (4.5-11.0)
[2017-05-22 07:22] LABS: ALB/GLOB RATIO 1.2 (1.1-1.8); ALBUMIN 3.4 g/dL (3.0-4.8); CALCIUM 9.2 mg/dL (8.4-10.5)
[2017-05-22] MEDS: Potassium Chloride 20 mEq ER Tab PO SCH ×2 (08:01→11:23)
--- NOTE | 2017-05-22 09:58 | RAD ---
HISTORY: re-evaluate right pneumothorax COMPARISON: Multiple serial examinations preceding the most recent study: May 21, 2017. TECHNIQUE: Chest PA and lateral FINDINGS: LUNGS: Complete re-expansion of the right lung. Compressive atelectasis left lower lobe. PLEURA: Stable position of pigtail catheter in the right pleural space. There may be a small loculated hydro pneumothorax. This is not felt to be significant. Stable left pleural effusion. CARDIOVASCULAR: Normal. OSSEOUS STRUCTURES: No significant abnormalities. VISUALIZED UPPER ABDOMEN: Normal. OTHER FINDINGS: None. IMPRESSION: Re-expansion of the right lung. Trace right pleural effusion.
[2017-05-22] MEDS ORDERED: Lidocaine 1% Inj (20ml) ONE (10:31)
[2017-05-22] MEDS ORDERED: Bupivacaine 0.5% Inj(30mL) ONE (10:31)
[2017-05-22] MEDS: CYCLOSPORINE MODIFIED 50 MG PO SCH ×2 (11:21→17:02)
[2017-05-22] MEDS: Enoxaparin 30 mg Syringe SC SCH (11:24)
[2017-05-22] MEDS: Lidocaine 5% Patch TD SCH (11:40)
--- NOTE | 2017-05-22 13:45 | CP.PCM.PN ---
Subjective - Date & Time of Evaluation Date of Evaluation: 05/22/17 Time of Evaluation: 13:40 - Subjective Subjective: Surgery: Dr. Og Patient doing well. Xray showed full expansion of right lung this am. OR cancelled. Objective - Vital Signs/Intake and Output Vital Signs (last 24 hours): Temp Pulse Resp BP Pulse Ox 98.1 F 78 18 157/89 H 100 05/22/17 12:00 05/22/17 12:00 05/22/17 12:00 05/22/17 12:00 05/22/17 05:45 Intake and Output: 05/22/17 05/22/17 06:59 18:59 Intake Total 240 Output Total 610 Balance -370 - Medications Medications: Current Medications Amlodipine Besylate (Norvasc) 5 mg PO BID [facility] Last Admin: 05/22/17 11:24 Dose: 5 mg Azithromycin (Zithromax) 250 mg PO DAILY [facility] Last Admin: 05/22/17 11:23 Dose: 250 mg Carvedilol (Coreg) 12.5 mg PO BID [facility] Last Admin: 05/22/17 11:24 Dose: 12.5 mg Enoxaparin Sodium (Lovenox) 30 mg SC DAILY [facility] PRN Reason: Protocol Last Admin: 05/22/17 11:24 Dose: 30 mg Famotidine (Pepcid) 20 mg PO HS [facility] Last Admin: 05/21/17 21:00 Dose: 20 mg Ferrous Sulfate (Feosol) 324 mg PO TID [facility] Last Admin: 05/22/17 11:23 Dose: 324 mg Folic Acid (Folic Acid) 1 mg PO DAILY [facility] Last Admin: 05/22/17 11:23 Dose: 1 mg Furosemide (Lasix) 40 mg PO DAILY [facility] Levalbuterol HCl (Xopenex) 0.63 mg IH Q6H [facility] Last Admin: 05/22/17 07:51 Dose: Not Given Lidocaine (Lidoderm) 1 ea TD DAILY [facility] Last Admin: 05/22/17 11:40 Dose: 1 ea Mupirocin (Bactroban Ointment) 0 gm TOP BID [facility] Last Admin: 05/22/17 11:33 Dose: 1 applic Mycophenolate Mofetil (Cellcept Cap) 1,250 mg PO BID [facility] Last Admin: 05/22/17 11:23 Dose: 1,250 mg Non-Formulary Medication (Cyclosporine, Modified [Neoral]) 50 mg PO BID [facility] Last Admin: 05/22/17 11:21 Dose: 50 mg Potassium Chloride (K-Dur 20 Meq Er Tab) 20 meq PO BRK [facility] Last Admin: 05/22/17 11:23 Dose: 20 meq - Labs Labs: 05/22/17 06:30 05/22/17 06:30 PT 13.2 SECONDS (9.4-12.5) H 05/18/17 05:15 INR 1.14 (0.93-1.08) H 05/18/17 05:15 APTT 29.5 Seconds (25.1-36.5) 05/17/17 08:55 - Constitutional Appears: Non-toxic, No Acute Distress - Head Exam Head Exam: ATRAUMATIC, NORMOCEPHALIC - Eye Exam Eye Exam: EOMI, Normal appearance - ENT Exam ENT Exam: Mucous Membranes Moist - Respiratory Exam Respiratory Exam: NORMAL BREATHING PATTERN. absent: Respiratory Distress - Cardiovascular Exam Cardiovascular Exam: REGULAR RHYTHM. absent: Tachycardia - GI/Abdominal Exam GI & Abdominal Exam: Soft. absent: Distended, Tenderness Assessment and Plan - Assessment and Plan (Free Text) Assessment: 61 y/o with right hydropneumothorax s/p pigtail placement with full re- expansion of right lung this am Plan: -cont pleurovac to 40mmHg -repeat CXR in am, if lung fully expanded can decrease suction to 20mmHg on Wednesday with f/u CXR in afternoon -may consider placing CT to waterseal if lung remains expanded -supportive care -IS use -OOB -d/w Dr. Earle Love PGY3
--- NOTE | 2017-05-22 14:48 | PN ---
DATE: SUBJECTIVE: The patient is currently seen awaiting possible placement of a large-bore chest tube. He states his breathing has been better since placement of the initial chest tube. His creatinine has been stable down in the 1.8 range. He remains on immunosuppressive therapy for his liver transplant. MEDICATIONS: Medication list reviewed. The patient is currently on mupirocin, CellCept, Coreg, cyclosporin, Feosol, folic acid, K tabs, IV Lasix, Lidoderm, Lovenox, Norvasc, Pepcid, Xopenex and Zithromax. OBJECTIVE: INTAKE/OUTPUT: Intake 600, output 1460 with less drainage from his chest tube. VITAL SIGNS: Blood pressure 150/79, temperature 97.8, respiratory rate 18 with a pulse of 76, pulse ox 100% on nasal cannula oxygen 2 L. HEENT: Exam normocephalic, atraumatic. Conjunctivae remain pale. Sclerae nonicteric. NECK: Supple. No neck vein distention. CHEST: Clear to auscultation and percussion with positive chest tube, right side. CARDIOVASCULAR: Shows a regular rate and rhythm with tricuspid regurgitation. No S3. No S4. ABDOMEN: Soft. Minimal distention. No tenderness appreciated. No masses. No rebound or guarding. EXTREMITIES: Lower extremities show no significant pitting edema. No cyanosis or clubbing. LABORATORY DATA AND IMAGING: CBC: White blood cell count today 7.5, hemoglobin 10.5 with a platelet count of 176,000. Chemistry showed normal electrolytes. BUN down to 64 with a creatinine of 1.8. Baseline BUN ranges anywhere from the upper 40s to the low 70 range. So he is within his baseline range. Baseline creatinine had been in the low 2 range, although he is actually improved at a creatinine of 1.8. It was 1.6 yesterday. Calcium is 9.2. Last phosphorus was 3.7 with a magnesium of 2.3. Bilirubin is normal. Mild elevation of his liver enzymes. Microbiology: All cultures are negative to date. ASSESSMENT: 1. Prerenal azotemia superimposed on chronic kidney disease stage 3. The patient is at or below his baseline creatinine level. His BUN is at the upper range of his baseline, likely secondary to the fact that he is using diuretic therapy. In all likelihood, chronic kidney disease is in part secondary to long-term use of calcineurin inhibitors. 2. History of liver transplant in 2002 secondary to cirrhosis and likely alcohol abuse. 3. History of hypertension. Blood pressure is acceptable at the present range. The patient may continue Coreg and calcium channel doris therapy. 4. Large right pleural effusion. He is status post placement of a small chest tube. He is being evaluated for placement of a large-bore chest tube. 5. History of pulmonary hypertension with tricuspid regurgitation, ejection fraction 53%. 6. History of anemia with normal iron saturations. This is likely secondary to chronic kidney disease. 7. History of a 5 cm pancreatic cystic mass. This appears to be stable in nature. PLAN: 1. The patient is apprehensive about having the chest tube placed. He would like it to be done already. 2. Transition the patient over to oral Lasix therapy as edema is significantly improved. 3. Continue present immunosuppression therapy for his liver transplant. 4. Duration of antibiotic therapy as the patient's cultures are negative. 5. From a renal standpoint, the patient is stable. We will continue to monitor him along with you in the hospital and is discussed with the patient previously he should follow up with us in the outpatient setting in light of his chronic kidney disease. Krish Rueda MD
--- NOTE | 2017-05-22 15:07 | PN ---
DATE: 05/22/2017 PULMONARY PROGRESS NOTE SUBJECTIVE: The patient was seen and examined at bedside. He is sitting up in bed. He is not in any respiratory distress. The chest tube is draining serous yellowish fluid. PHYSICAL EXAMINATION: VITAL SIGNS: His temperature is 98, pulse is 82, respirations 18, blood pressure is 150/88, oxygen saturation on room air is between 95% and 96%. HEAD, EYES, EARS, NOSE, AND THROAT: Within normal limits. NECK: Supple with no jugular vein distentions. LUNGS: Breath sounds are diminished at right lower lung, the left lung is clear. No wheezing. EXTREMITIES: No pedal edema. GASTROINTESTINAL: Abdomen is soft, nontender, and nondistended. CARDIOVASCULAR: S1 and S2. Positive for S3 gallop. SKIN: No acute skin rash. NEUROLOGIC: No focal deficits. DIAGNOSTIC DATA: Chest x-ray, improved in amount of effusion and decrease in right-sided pneumothorax, this is yesterday's chest x-ray. This morning's chest x-ray is done, but [facility] PACS is not working, so I am not able to see the morning chest x-ray. Will discus with radiologist and get it up. ASSESSMENT AND PLAN: Recurrent congestive heart failure; chronic pleural effusions, status post drainage; right-sided pneumothorax, status post chest tube. We will monitor. At the present time, patient is doing well, asymptomatic without shortness of breath. I doubt he will require another chest tube insertion. This current chest tube is functioning. Alpesh Maki MD
--- NOTE | 2017-05-22 16:20 | PN ---
DATE: 05/22/2017 SUBJECTIVE: Kelechi Soto is seen this morning. He is very comfortable, feels good. The tube is in good position and working well. The initial plan was to for a large bore chest tube under IV sedation in the operating room. This was planned. The repeat x-ray today, however, is reviewed and I agree with it, shows almost complete resolution of the pneumothorax. There is a small loculated hydropneumothorax that might not be significant. There is a pleural effusion on that side. We will leave this tube in place for now without surgical intervention. Marco Og MD
--- NOTE | 2017-05-22 17:48 | PN ---
DATE: FOLLOWUP SUBJECTIVE: The patient's shortness of breath has improved. Plans for another thoracocentesis were canceled today. The patient denies any retrosternal chest pain. PHYSICAL EXAMINATION: VITAL SIGNS: Blood pressure 169/89, heart rate 78, temperature 98.1, respirations 18. HEENT: Pale conjunctivae. CHEST: Absent breath sounds over the left base. HEART: S1 and S2, regular. ABDOMEN: Mild ascites. EXTREMITIES: No edema. LABORATORY DATA: Hemoglobin and hematocrit 10.5 and 31.7, white count and platelet count are within normal limits. Today's BUN and creatinine are 64 and 1.8. The rest of SMA-7 is within normal limits. Repeat chest x-ray revealed pigtail catheter in the right pleura with no residual fluid, and there is oeuv-[id number] left pleural effusion. ASSESSMENT: 1. Bilateral pleural effusion with right thoracocentesis with noos-xn-seivywxe left pleural effusion. 2. Status post liver transplant. 3. Systemic hypertension. 4. Talo-gx-ezimikvt pulmonary hypertension. 5. Acute renal insufficiency. CONDITIONS: Continue current Coreg at 12.5 mg once a day, CellCept at 1250 mg twice a day, Feosol 324 mg t.i.d., K-Dur 20 mEq once a day, Lasix 40 mg once a day, Norvasc 5 mg once a day, Zithromax at 250 mg once a day. Terry Acosta MD
--- NOTE | 2017-05-22 18:12 | PN ---
DATE: SUBJECTIVE: I saw Kelechi resting comfortably in bed. He has got better spirits today. He was supposed to go and get the chest tube yesterday with Dr. Og, reposition and also into a bigger chest tube, but it turned out the chest x-ray was better and he did not have to have that done. He is resting comfortably in bed, breathing well, eating well. Good spirits. A little bit of pain, but not so terrible. The latest chest x-ray done today showed reexpansion of the lung. He still has a chest tube in from Dr. Jose Martin Whitlock and it is draining, I think it is less than 150. PHYSICAL EXAMINATION: VITAL SIGNS: He has a 98.1 temperature, 78 pulse, 127/89 blood pressure, 18 respiratory rate, 100% O2 sat on 2 L nasal cannula. HEENT: His head is atraumatic, normocephalic. HEART: Regular rate. LUNGS: Decreased breath sounds, but clear to auscultation both sides. No wheezes, rhonchi, or rales. ABDOMEN: Soft. EXTREMITIES: No edema. LABORATORY DATA: He has a 7.5 white count, 10.5 hemoglobin, 31.7 hematocrit with 176 platelets. He has a 140 sodium; potassium is 4.2; BUN 64; creatinine 1.8, still a little bit up; GFR is 39. Calcium is 9.2, total bilirubin is 0.9, AST is 63, ALT is 105, alkaline phosphatase is 320, total protein 6.1. MEDICATIONS: He is currently on Bactroban, CellCept, Coreg, cyclosporin, Feosol, folic acid, potassium, Lasix, Lidoderm, Lovenox, amlodipine, Pepcid, Xopenex, and azithromycin. ASSESSMENT AND PLAN: He had multiple issues. He had complete whiteout of the right lung, right pneumothorax, congestive heart failure, status post liver transplant, urinary tract infection, renal insufficiency. He has been seen by Renal, Cardiology, Surgery, and Pulmonary. We will continue with treatment and care. Watch for chest tube drainage. I believe when we get this under 50, we taken it out. He is improving. Giovanny Elliott DO MTDaYn
[2017-05-23] MEDS: Levalbuterol 0.63 MG/3 ML Inhal Soln UD IH SCH ×4 (00:59→18:51)
[2017-05-23 06:45] LABS: HEMOGLOBIN 9.2 g/dL (14.0-18.0); MEAN CELL VOLUME 85.3 fl (80.0-105.0); MEAN CORPUSCULAR HEMOGLOBIN 28.8 pg (25.0-35.0); MEAN CORPUSCULAR HGB CONC 33.7 g/dl (31.0-37.0); MEAN PLATELET VOLUME 8.7 fl (7.0-11.0); RBC 3.2 10^6/uL (3.5-6.1); RED CELL DISTRIBUTION WIDTH 13.5 % (11.5-14.5); WHITE BLOOD COUNT 6.5 10^3/ul (4.5-11.0)
[2017-05-23 06:54] LABS: ALB/GLOB RATIO 1.2 (1.1-1.8); CALCIUM 8.9 mg/dL (8.4-10.5); MAGNESIUM 1.9 mg/dL (1.7-2.2)
[2017-05-23] MEDS: Potassium Chloride 20 mEq ER Tab PO SCH (08:35)
--- NOTE | 2017-05-23 08:42 | CP.PCM.PN ---
Subjective - Date & Time of Evaluation Date of Evaluation: 05/23/17 Time of Evaluation: 07:30 - Subjective Subjective: Patient seen and examined at bedside. No adverse events overnight. Patient denies dyspnea, chest pain, or any other symptoms. CXR this AM looks improved with a residual small apical pneumothorax. Chest tube 425cc serous fluid/24 hours Objective - Vital Signs/Intake and Output Vital Signs (last 24 hours): Temp Pulse Resp BP Pulse Ox 97.6 F 77 20 146/78 98 05/23/17 06:00 05/23/17 06:00 05/23/17 06:00 05/23/17 06:00 05/23/17 06:00 Intake and Output: 05/23/17 05/23/17 06:59 18:59 Intake Total 480 Output Total 670 Balance -190 - Medications Medications: Current Medications Amlodipine Besylate (Norvasc) 5 mg PO BID [facility] Last Admin: 05/22/17 17:04 Dose: 5 mg Azithromycin (Zithromax) 250 mg PO DAILY [facility] Last Admin: 05/22/17 11:23 Dose: 250 mg Carvedilol (Coreg) 12.5 mg PO BID [facility] Last Admin: 05/22/17 17:03 Dose: 12.5 mg Enoxaparin Sodium (Lovenox) 30 mg SC DAILY [facility] PRN Reason: Protocol Last Admin: 05/22/17 11:24 Dose: 30 mg Famotidine (Pepcid) 20 mg PO HS [facility] Last Admin: 05/22/17 21:12 Dose: 20 mg Ferrous Sulfate (Feosol) 324 mg PO TID [facility] Last Admin: 05/22/17 17:03 Dose: 324 mg Folic Acid (Folic Acid) 1 mg PO DAILY [facility] Last Admin: 05/22/17 11:23 Dose: 1 mg Furosemide (Lasix) 40 mg PO DAILY [facility] Levalbuterol HCl (Xopenex) 0.63 mg IH Q6H [facility] Last Admin: 05/23/17 08:11 Dose: Not Given Lidocaine (Lidoderm) 1 ea TD DAILY [facility] Last Admin: 05/22/17 11:40 Dose: 1 ea Mupirocin (Bactroban Ointment) 0 gm TOP BID [facility] Last Admin: 05/22/17 17:03 Dose: 1 applic Mycophenolate Mofetil (Cellcept Cap) 1,250 mg PO BID [facility] Last Admin: 05/22/17 17:03 Dose: 1,250 mg Non-Formulary Medication (Cyclosporine, Modified [Neoral]) 50 mg PO BID [facility] Last Admin: 05/22/17 17:02 Dose: 50 mg Potassium Chloride (K-Dur 20 Meq Er Tab) 20 meq PO BRK [facility] Last Admin: 05/23/17 08:35 Dose: 20 meq - Labs Labs: 05/23/17 06:00 05/23/17 06:00 PT 13.2 SECONDS (9.4-12.5) H 05/18/17 05:15 INR 1.14 (0.93-1.08) H 05/18/17 05:15 APTT 29.5 Seconds (25.1-36.5) 05/17/17 08:55 - Constitutional Appears: Well, Non-toxic, No Acute Distress - Head Exam Head Exam: ATRAUMATIC, NORMOCEPHALIC - Eye Exam Eye Exam: Normal appearance. absent: Conjunctival injection, Scleral icterus - ENT Exam ENT Exam: Mucous Membranes Moist, Normal Oropharynx - Respiratory Exam Respiratory Exam: NORMAL BREATHING PATTERN. absent: Accessory Muscle Use, Respiratory Distress Additional comments: on 3L NC - GI/Abdominal Exam GI & Abdominal Exam: absent: Distended - Extremities Exam Extremities Exam: absent: Calf Tenderness, Pedal Edema - Neurological Exam Neurological Exam: Alert, Awake, Oriented x3 - Psychiatric Exam Psychiatric exam: Normal Affect, Normal Mood - Skin Skin Exam: Dry, Normal Color, Warm Assessment and Plan - Assessment and Plan (Free Text) Assessment: 61 y/o with right hydropneumothorax s/p pigtail placement with persistent but small apical pneumothorax Plan: -decrease pleurovac to 20mmHg--monitor respiratory status closely -repeat CXR in am--further chest tube management pending results -supportive care -IS use -OOB Seen and examined Dr. Earle Suero, PGY2
[2017-05-23] MEDS: Lidocaine 5% Patch TD SCH (10:07)
[2017-05-23] MEDS: Enoxaparin 30 mg Syringe SC SCH (10:11)
[2017-05-23] MEDS: CYCLOSPORINE MODIFIED 50 MG PO SCH ×2 (10:15→17:16)
--- NOTE | 2017-05-23 10:57 | RAD ---
HISTORY: comparison COMPARISON: May 22, 2017. FINDINGS: LUNGS: Stable consolidative changes left lower lobe Stable consolidative changes right lower lobe. PLEURA: Satisfactory position of pigtail catheter in the right pleural space. No pneumothorax. [place] pneumothorax identified on the prior study has resolved. CARDIOVASCULAR: Normal. OSSEOUS STRUCTURES: No significant abnormalities. VISUALIZED UPPER ABDOMEN: Normal. OTHER FINDINGS: None. IMPRESSION: No evidence of pneumothorax or hydro pneumothorax. Stable consolidative changes.
--- NOTE | 2017-05-23 12:49 | PN ---
DATE: SUBJECTIVE: The patient is currently seen sitting in a chair, on telemetry 2R. He appears to be in no acute distress. He appears to have had significant aeration of the right lung, so a plan to place a large-bore chest tube was not done yesterday. The patient's creatinine continues to trend downward, it is 1.7. This is below his baseline range. He had 340 mL of pleural fluid drained in the last 24 hours, so he continues on low suction. The tube has not been clamped. MEDICATIONS: Medication list reviewed. The patient is on mupirocin, CellCept, Coreg, cyclosporin, Feosol, folic acid, K-Tabs, Lasix, Lidoderm, Lovenox, Norvasc, Pepcid, Xopenex, and Zithromax. OBJECTIVE: INTAKE/OUTPUT: Intake is 480, output is 670 plus 340 mL with the chest tube. VITAL SIGNS: Blood pressure 146/78, temperature 97.6, respiratory rate 20 with a pulse of 77. HEENT: Normocephalic, atraumatic. Conjunctivae are pale. Sclerae nonicteric. NECK: Supple. No neck vein distention. CHEST: Clear to auscultation and percussion with significant improvement of breath sounds of the right chest. Positive chest tube in place on the right side. CARDIOVASCULAR: Shows a regular rate and rhythm with tricuspid regurgitation. No S3, no S4, no rub. ABDOMEN: Soft. No significant distention. No tenderness. No masses. No rebound or guarding. EXTREMITIES: Show no significant lower extremity edema. No cyanosis or clubbing. LABORATORY DATA AND IMAGING: CBC: Today, white blood cell count 6.5, hemoglobin slightly lower at 9.2, and platelet count is 171,000. Chemistry showed normal electrolytes. BUN is improved at 59. Creatinine is improved to 1.7. Glucose 118. Liver enzymes remain mildly elevated. Bilirubin is normal. Albumin level is 3.0. Microbiology: Cultures of the pleural fluid have been negative. ASSESSMENT: 1. Mild prerenal azotemia superimposed on chronic kidney disease stage 3. The patient states that his baseline creatinine has remained in the low 2 range in the outpatient setting. Currently is 1.7, so it is below his baseline level. His baseline BUN has ranged anywhere from the upper 40s to low 70s, it is currently 59, so it is within his baseline range. From a renal standpoint, the patient appears to be stable. It is felt that he likely has chronic kidney disease in part secondary to long-term use of calcineurin inhibitors for his liver transplant. 2. History of liver transplant in 2002, secondary to cirrhosis and likely alcohol use. 3. History of hypertension. Blood pressure is acceptable on present medication. He continue Coreg and calcium channel doris therapy. I would avoid CRESCENCIO inhibitors and angiotensin receptor blockers. 4. Status post large right pleural effusion drained with a small chest tube. Apparently with the improvement in his chest x-ray, there are no plans for placement of a large-bore chest tube. 5. History of pulmonary hypertension with tricuspid regurgitation, ejection fraction 53%. This appears to be stable. 6. History of anemia with normal iron saturations, this is likely secondary to chronic kidney disease. 7. History of a 5 cm pancreatic cystic mass. This appears to be stable in nature on radiographic studies. PLAN: 1. The patient is encouraged by the fact that his BUN and creatinine are well within his baseline range or below his baseline range. 2. The patient may continue oral Lasix therapy along with low-dose potassium supplements. 3. Continue present immunosuppression for his liver transplant. 4. Duration of antibiotic therapy?. 5. The patient is willing to follow up with us in the outpatient setting for his chronic kidney disease upon discharge from the hospital. Krish Rueda MD
--- NOTE | 2017-05-23 13:55 | PN ---
DATE: SUBJECTIVE: I saw Earnest sitting up in bed. He did not sleep well last night. He is uncomfortable with the chest tube in place. He is trying to eat, but just overall tired and has some pain in the right side where the chest tube is. He is breathing well still. No real chest pain or shortness of breath, just at the site of the chest tube. He is on Bactroban cream, CellCept, Coreg, Neoral, Feosol, folic acid, potassium, Lasix, Lidoderm, Lovenox, Norvasc, Pepcid, Xopenex, and azithromycin. OBJECTIVE: VITAL SIGNS: He has 97.6 temperature, 77 pulse, 146/78 blood pressure, 20 respiratory rate, 90% O2 sat. HEENT: Head is atraumatic, normocephalic. Throat is moist. NECK: Supple. HEART: Regular rate. LUNGS: Decreased breath sounds, but clear to auscultation. No wheezes. No rhonchi. No rales. He is on full aeration, breathing about 1250 on the incentive spirometer. ABDOMEN: Soft, nontender. Positive bowel sounds. EXTREMITIES: He is wearing SONAL stockings. He has got no edema of the lower extremities. LABORATORY DATA: He has a 6.5 white count, 9.2 hemoglobin, 27.3 hematocrit, with 171 platelets. INR is 1.14. He has a 138 sodium, potassium 3.9, BUN is 59 - the best it has been, creatinine is 1.7 - little bit better. GFR is up to 41, sugar is 118, calcium is 8.9, phosphorous 3.2, magnesium 1.9, total bili is 0.8. AST is 54, ALT is 92, alk phos 317, - getting a little bit better liver functions, and albumin is 5.6, amylase was less than 30. ASSESSMENT AND PLAN: He is being seen by Surgery, Renal, Pulmonary. We will see how he does tomorrow. He did have a 150 mL in the chest tube mL, we have to find a way to stop the leaking, and we will see what today's chest x-ray says. I will continue with aggressive treatment and care. Check his labs tomorrow. The patient had a right pleural effusion, right pneumothorax, chest tube, congestive heart failure, urinary tract infection, renal insufficiency. He has a history of a liver transplant. Giovanny Elliott DO MTDD
--- NOTE | 2017-05-23 19:11 | PN ---
DATE: 05/23/2017 SUBJECTIVE: Mr. Soto's history is exactly similar to yesterday's note. Patient is asymptomatic, is not short of breath. There is no pleuritic chest pain. On physical examination, he has good bilateral breath sounds. I reviewed his laboratory data. He is slightly anemic at 9.2. His WBC's are 6.5. PHYSICAL EXAMINATION: HEENT: Examination of head, ears, nose, and throat is within normal limits. NECK: Supple with no jugular vein distention. CHEST: Symmetrical. HEART: S1, S2. Irregular. PULMONARY: As above. : Within normal limits GI: Soft, nontender. No organomegaly. EXTREMITIES: Without edema. NEUROLOGIC: No memory loss ASSESSMENT: 1. Massive pleural effusion. 2. Congestive heart failure. 3. Pneumothorax. PLAN: Patient is doing much better. His chest x-ray shows complete resolution of pneumothorax and complete resolution of pleural effusion. The chest tube management as per surgical team. I will discuss this with Dr. Nick. Alpesh Maki MD MORE[facility]
--- NOTE | 2017-05-23 20:20 | PN ---
DATE: SUBJECTIVE: Patient denies any shortness of breath. He still has depictive drainage from the right pleural cavity. PHYSICAL EXAMINATION: VITAL SIGNS: Blood pressure 139/73, heart rate 101, temperature , respiration 19. HEENT: Pale conjunctivae. CHEST: Absent breath sounds over the left base. HEART: S1, S2 regular. EXTREMITIES: No edema. LABORATORY DATA: Hemoglobin and hematocrit 9.2 and 27.3. White count and platelet count are within normal limits. Today's BUN and creatinine are 59 and 1.7, slight improvement compared to yesterday. Today's chest x-ray reveals mild to moderate right pleural effusion. ASSESSMENT: 1. Grqb-ng-xkpfxjlo pleural effusion. 2. Status post liver transplant. 3. Systemic hypertension. 4. Lbta-hj-adggdmpq pulmonary hypertension. 5. Acute renal insufficiency, which is improving. RECOMMENDATIONS: 1. Continue Coreg 12.5 mg twice a day. 2. K-Dur 20 mEq once a day. 3. Lasix 40 mg p.o. once a day. 4. Norvasc at 5 mg once a day. 5. Oral Zithromax at 250 mg daily. PLAN: Is to remove the pigtail catheter from the right pleural cavity. Terry Acosta MD
[2017-05-24] MEDS: Levalbuterol 0.63 MG/3 ML Inhal Soln UD IH SCH ×4 (01:00→19:17)
[2017-05-24 07:15] LABS: MEAN CELL VOLUME 85.6 fl (80.0-105.0); MEAN CORPUSCULAR HEMOGLOBIN 28.2 pg (25.0-35.0); RBC 3.19 10^6/uL (3.5-6.1); RED CELL DISTRIBUTION WIDTH 13.6 % (11.5-14.5); WHITE BLOOD COUNT 7.2 10^3/ul (4.5-11.0)
--- NOTE | 2017-05-24 07:32 | PN ---
DATE: PULMONARY NOTE SUBJECTIVE: The patient appears very comfortable this morning. He is not short of breath at rest. OBJECTIVE VITALS: Temperature is 98.2, pulse 69, respirations 18, blood pressure 137/68. Oxygen saturation on nasal cannula is 97%. HEENT: Normocephalic, atraumatic. NECK: No JVD. CARDIOVASCULAR: Positive S1, S2. Positive S3 gallop. LUNGS: Improved breath sounds - right lung. Slight decreased breath sounds at both bases. No rhonchi. No wheezing. EXTREMITIES: Less edema. No cyanosis, no clubbing. Calves are nontender to palpation. GASTROINTESTINAL: Abdomen is soft, nontender and nondistended. Bowel sounds are positive. SKIN: No acute rash. NEUROLOGIC: Limited at the present time. Right chest tube in place. PERTINENT LABORATORY DATA: Chest x-ray was done yesterday and reviewed. There is now reexpansion of the right lung, and resolution of the pneumothorax. There is a small left pleural effusion noted. IMPRESSION 1. Recurrent congestive heart failure. 2. Chronic pleural effusions - very large/increasing right pleural effusion. Status post chest tube. 3. Right pneumothorax - resolved. 4. Jhxgi-sk-duypapq kidney disease. 5. Chronic anemia. 6. Status post liver transplant. PLAN: The patient appears very comfortable this morning. He is not short of breath at rest. He does state to feeling much, much better overall. On physical exam, there is no significant bronchospasm noted. In addition, the oxygen saturation on nasal cannula is 97%. I will continue the current nebulizer treatments and incentive spirometry for now. I did review the chest x-ray from yesterday. There is now reexpansion of the right lung along, with resolution of the right pneumothorax. There is a small left pleural effusion seen. I would continue with the chest tube management as per Surgery. I will discuss the case with them this morning. Cultures on the pleural fluid remain negative. Cytology is negative for malignant cells. Repeat chest x-ray is ordered. I would continue with the Cardiology and Renal evaluations. Inputs are noted. Clinical status of the patient is significantly improved. I will discuss the above with Dr. Elliott. Terry Nick MD MTDD
[2017-05-24 07:38] LABS: ALB/GLOB RATIO 1.2 (1.1-1.8); ALBUMIN 3.2 g/dL (3.0-4.8); CALCIUM 9.1 mg/dL (8.4-10.5)
--- NOTE | 2017-05-24 08:50 | RAD ---
HISTORY: comparison COMPARISON: 05/23/2017. FINDINGS: The right chest tube remains stable position. LUNGS: The lungs are well inflated. There is interval improved aeration in the right lower lobe. There is stable consolidation in the left lower lobe. PLEURA: There is a moderate right hydro pneumothorax. Stable small left pleural effusion. CARDIOVASCULAR: Normal. OSSEOUS STRUCTURES: No significant abnormalities. VISUALIZED UPPER ABDOMEN: Normal. OTHER FINDINGS: None. IMPRESSION: 1. Moderate right hydro pneumothorax. Stable position of right pigtail chest tube. 2. Stable left lower lobe consolidation and left pleural effusion. Important findings were discussed CABLE INSTALLER REPAIRER Lidia on the floor on 05/24/2017 at 8:40 a.m.
[2017-05-24] MEDS: Potassium Chloride 20 mEq ER Tab PO SCH (10:27)
[2017-05-24] MEDS: Lidocaine 5% Patch TD SCH (10:28)
[2017-05-24] MEDS: CYCLOSPORINE MODIFIED 50 MG PO SCH ×2 (10:30→18:04)
--- NOTE | 2017-05-24 12:48 | PN ---
DATE: SUBJECTIVE: I saw Kelechi resting comfortably in bed. He was actually standing up arranging the chest tube. He tells me he is feeling well, breathing well, using incentive spirometry 1500. MEDICATIONS: He is on Bactroban, CellCept, Coreg, cyclosporine, Feosol, folic acid, potassium, Lasix, Lidoderm, Norvasc, Pepcid, Xopenex, and Zithromax. PHYSICAL EXAMINATION: VITAL SIGNS: Temperature 97, pulse 74, blood pressure 141/87, respiratory rate 22, O2 sat 99% on 2 liters. HEENT: His head is atraumatic, normocephalic. HEART: Regular rate. LUNGS: Decreased breath sounds, but clear to auscultation. No wheezing, no rhonchi, no rales. He has a chest tube on the right lung. ABDOMEN: Soft. EXTREMITIES: No edema. LABORATORY DATA: He has a 7.2 white count, 9 hemoglobin, 27.3 hematocrit, 193 platelets; 1.14 INR. Sodium 137, potassium 3.9, BUN 51, creatinine 1.8, GFR is 39, sugar is 101, calcium is 9.1, total bilirubin is 0.8, AST is 50, ALT is 84, alkaline phosphatase 343, total protein 6.0. IMPRESSION AND PLAN: He is being seen by Pulmonary, Cardiology, Renal. I am waiting for the chest tube to be taken out and sealed. Hopefully, it will be done soon. I do think he is improving. Continue to watch his kidney functions. He had a right chest white-out with pleural effusion, pneumothorax, chest tube, renal insufficiency, acute kidney injury, urinary tract infection, history of liver transplant. I do think he is improving some. Waiting for chest tube to be removed by Surgery when capable. Giovanny Elliott DO MTDD
--- NOTE | 2017-05-24 13:20 | PN ---
DATE: SUBJECTIVE: The patient denies any chest pain. PHYSICAL EXAMINATION: VITAL SIGNS: Blood pressure 140/80, heart rate 74, temperature 97, and respirations 22. HEENT: Pale conjunctivae. CHEST: Absent breath sounds over the left base. HEART: S1 and S2, regular. ABDOMEN: Mild ascites. EXTREMITIES: Trace leg edema. LABORATORY DATA: Hemoglobin and hematocrit 9 and 27.3, white count and platelet count are within normal limits. Today's BUN and creatinine are 51 and 1.8 and potassium is within normal limits. Chest x-ray revealed clearing of the right pleural effusion with [id number] left pleural effusion. ASSESSMENT: 1. Diastolic heart failure. 2. Right pleural effusion, status post chest tube drainage. 3. Acute on top of chronic kidney disease. 4. Status post liver transplant. 5. Chronic anemia. RECOMMENDATIONS: Continue CellCept, Coreg, Feosol, folic acid 1 mg once a day, K-Dur 20 mEq once a day, Lasix at 40 mg once a day, Norvasc at 5 mg once a day, Zithromax at 250 mg orally once a day. Terry Acosta MD
--- NOTE | 2017-05-24 15:41 | CP.PCM.PN ---
Subjective - Date & Time of Evaluation Date of Evaluation: 05/24/17 Time of Evaluation: 15:39 - Subjective Subjective: Surgery: Dr. Og Patient doing well this am. CT on wall suction. Found clamped. Objective - Vital Signs/Intake and Output Vital Signs (last 24 hours): Temp Pulse Resp BP Pulse Ox 97.9 F 75 20 147/88 99 05/24/17 12:00 05/24/17 12:00 05/24/17 12:00 05/24/17 12:00 05/24/17 06:00 Intake and Output: 05/24/17 05/24/17 06:59 18:59 Intake Total 360 Output Total 1450 Balance -1090 - Medications Medications: Current Medications Amlodipine Besylate (Norvasc) 5 mg PO BID [facility] Last Admin: 05/24/17 10:27 Dose: 5 mg Azithromycin (Zithromax) 250 mg PO DAILY [facility] Last Admin: 05/24/17 10:26 Dose: 250 mg Carvedilol (Coreg) 12.5 mg PO BID [facility] Last Admin: 05/24/17 10:27 Dose: 12.5 mg Famotidine (Pepcid) 20 mg PO HS [facility] Last Admin: 05/23/17 21:30 Dose: 20 mg Ferrous Sulfate (Feosol) 324 mg PO TID [facility] Last Admin: 05/24/17 14:32 Dose: 324 mg Folic Acid (Folic Acid) 1 mg PO DAILY [facility] Last Admin: 05/24/17 10:28 Dose: 1 mg Furosemide (Lasix) 40 mg PO DAILY [facility] Last Admin: 05/24/17 10:27 Dose: 40 mg Levalbuterol HCl (Xopenex) 0.63 mg IH Q6H [facility] Last Admin: 05/24/17 13:36 Dose: 0.63 mg Lidocaine (Lidoderm) 1 ea TD DAILY [facility] Last Admin: 05/24/17 10:28 Dose: 1 ea Mupirocin (Bactroban Ointment) 0 gm TOP BID [facility] Last Admin: 05/24/17 10:25 Dose: 1 applic Mycophenolate Mofetil (Cellcept Cap) 1,250 mg PO BID [facility] Last Admin: 05/24/17 12:42 Dose: 1,250 mg Non-Formulary Medication (Cyclosporine, Modified [Neoral]) 50 mg PO BID [facility] Last Admin: 05/24/17 10:30 Dose: Not Given Potassium Chloride (K-Dur 20 Meq Er Tab) 20 meq PO BRK [facility] Last Admin: 05/24/17 10:27 Dose: 20 meq - Labs Labs: 05/24/17 06:30 05/24/17 06:30 PT 13.2 SECONDS (9.4-12.5) H 05/18/17 05:15 INR 1.14 (0.93-1.08) H 05/18/17 05:15 APTT 29.5 Seconds (25.1-36.5) 05/17/17 08:55 - Constitutional Appears: Non-toxic, No Acute Distress - Head Exam Head Exam: ATRAUMATIC, NORMOCEPHALIC - Eye Exam Eye Exam: EOMI, Normal appearance - ENT Exam ENT Exam: Mucous Membranes Moist - Respiratory Exam Respiratory Exam: NORMAL BREATHING PATTERN. absent: Respiratory Distress - Cardiovascular Exam Cardiovascular Exam: REGULAR RHYTHM. absent: Tachycardia - GI/Abdominal Exam GI & Abdominal Exam: Soft. absent: Distended, Tenderness Assessment and Plan - Assessment and Plan (Free Text) Assessment: 61 y/o male with hydropneumothorax s/p pigtail Ct placement Plan: -chest tube found clamped: unclamped and left chest tube on suction -CXr with apical pnx but could be secondary to CT being clamped -repeat CXR in am -if pnx persists, will place CT in OR -NPO pmn -d/w Dr. Og [facility] PGY3
--- NOTE | 2017-05-24 19:36 | PN ---
DATE: 05/24/2017 SUBJECTIVE: Patient is seen, sitting in bed. He is awake, he is alert, he is comfortable. PHYSICAL EXAMINATION: GENERAL: Elderly male, sitting in bed. VITAL SIGNS: Blood pressure 147/88, heart rate 75, respiratory rate 20, and temperature 97.9. HEENT: Normocephalic, atraumatic, positive pallor. NECK: Supple, no JVD. LUNGS: Bilateral rhonchi, decreased expansion in right side, bilateral expiratory wheeze. CARDIAC: S1, S2, regular rhythm, no murmur, no rub. ABDOMEN: Obese, distended, soft, nontender, bowel sounds present. EXTREMITIES: No lower extremity edema. INTAKE AND OUTPUT: 360/1450. LABORATORY DATA: WBC 7, hemoglobin , hematocrit 27, platelets 193. Sodium 137, potassium 3.9, chloride 105, CO2 of 20. BUN 51, creatinine 1.8. Glucose 101. Calcium 9.1. Total bili 0.9, AST 50, ALT 84. Albumin 3.2. Chest x-ray: Moderate right pleural effusion, moderate right pneumothorax, small left pleural effusion. CURRENT MEDICATIONS: CellCept 1250 b.i.d., Coreg 12.5 b.i.d., cyclosporin 50 b.i.d., Feosol, folic acid, K-Dur, Lasix 40, Lidoderm, amlodipine 5, Pepcid 20, Xopenex,and Zithromax. ASSESSMENT/PLAN: 1. Acute kidney injury, resolved. 2. Underlying chronic kidney disease stage 3, stable. 3. Liver transplant/ascites. 4. Right pleural effusion, status post chest tube, pneumothorax. 5. Hypertension. PLAN: 1. Continue oral Lasix. 2. Continue anti-rejection meds. 3. Poor drainage from chest tube, replacement? Lu Pike MD
[2017-05-25] MEDS: Levalbuterol 0.63 MG/3 ML Inhal Soln UD IH SCH ×4 (01:09→20:48)
[2017-05-25 06:40] LABS: HEMOGLOBIN 9.4 g/dL (14.0-18.0); MEAN CELL VOLUME 86.2 fl (80.0-105.0); MEAN CORPUSCULAR HEMOGLOBIN 28.2 pg (25.0-35.0); MEAN CORPUSCULAR HGB CONC 32.8 g/dl (31.0-37.0); MEAN PLATELET VOLUME 8.9 fl (7.0-11.0); RBC 3.33 10^6/uL (3.5-6.1); RED CELL DISTRIBUTION WIDTH 13.7 % (11.5-14.5); WHITE BLOOD COUNT 6.2 10^3/ul (4.5-11.0)
[2017-05-25 07:18] LABS: ALB/GLOB RATIO 1.3 (1.1-1.8); ALBUMIN 3.3 g/dL (3.0-4.8); CALCIUM 9.3 mg/dL (8.4-10.5)
--- NOTE | 2017-05-25 08:27 | RAD ---
HISTORY: follow up on apical pneumo COMPARISON: 05/24/2017 FINDINGS: LUNGS: No active pulmonary disease. PLEURA: Right pleural pigtail catheter. No pneumothorax. Small left pleural effusion. No evidence of right pleural effusion. CARDIOVASCULAR: Normal. OSSEOUS STRUCTURES: No significant abnormalities. VISUALIZED UPPER ABDOMEN: Normal. OTHER FINDINGS: None. IMPRESSION: Small left pleural effusion. No pneumothorax. Right pleural pigtail catheter unchanged.
--- NOTE | 2017-05-25 10:04 | CP.PCM.PN ---
Subjective - Date & Time of Evaluation Date of Evaluation: 05/25/17 Time of Evaluation: 12:02 - Subjective Subjective: Surgery: Dr. Og Patient frustrated this morning having being moved twice overnight. Patient denies pain, SOB, or cough. Per nursing no acute events noted. Chest tube noted to be disconnected from wall suction and had to be replaced this am. Objective - Vital Signs/Intake and Output Vital Signs (last 24 hours): Temp Pulse Resp BP Pulse Ox 97.8 F 76 19 146/79 100 05/25/17 05:32 05/25/17 05:34 05/25/17 05:32 05/25/17 05:32 05/25/17 05:32 Intake and Output: 05/25/17 05/25/17 06:59 18:59 Intake Total 360 Output Total 1000 Balance -640 - Medications Medications: Current Medications Amlodipine Besylate (Norvasc) 5 mg PO BID [facility] Last Admin: 05/24/17 18:05 Dose: 5 mg Azithromycin (Zithromax) 250 mg PO DAILY [facility] Last Admin: 05/24/17 10:26 Dose: 250 mg Carvedilol (Coreg) 12.5 mg PO BID [facility] Last Admin: 05/24/17 18:05 Dose: 12.5 mg Famotidine (Pepcid) 20 mg PO HS [facility] Last Admin: 05/24/17 21:15 Dose: 20 mg Ferrous Sulfate (Feosol) 324 mg PO TID [facility] Last Admin: 05/24/17 18:05 Dose: 324 mg Folic Acid (Folic Acid) 1 mg PO DAILY [facility] Last Admin: 05/24/17 10:28 Dose: 1 mg Furosemide (Lasix) 40 mg PO DAILY [facility] Last Admin: 05/24/17 10:27 Dose: 40 mg Levalbuterol HCl (Xopenex) 0.63 mg IH Q6H [facility] Last Admin: 05/25/17 07:51 Dose: Not Given Lidocaine (Lidoderm) 1 ea TD DAILY [facility] Last Admin: 05/24/17 10:28 Dose: 1 ea Mupirocin (Bactroban Ointment) 0 gm TOP BID [facility] Last Admin: 05/24/17 10:25 Dose: 1 applic Mycophenolate Mofetil (Cellcept Cap) 1,250 mg PO BID [facility] Last Admin: 05/24/17 18:03 Dose: 1,250 mg Non-Formulary Medication (Cyclosporine, Modified [Neoral]) 50 mg PO BID [facility] Last Admin: 05/24/17 18:04 Dose: Not Given Potassium Chloride (K-Dur 20 Meq Er Tab) 20 meq PO BRK [facility] Last Admin: 05/24/17 10:27 Dose: 20 meq - Labs Labs: 05/25/17 05:30 05/25/17 05:30 PT 13.2 SECONDS (9.4-12.5) H 05/18/17 05:15 INR 1.14 (0.93-1.08) H 05/18/17 05:15 APTT 29.5 Seconds (25.1-36.5) 05/17/17 08:55 - Constitutional Appears: Non-toxic, No Acute Distress - Head Exam Head Exam: ATRAUMATIC, NORMOCEPHALIC - Eye Exam Eye Exam: EOMI, Normal appearance - ENT Exam ENT Exam: Mucous Membranes Moist - Respiratory Exam Respiratory Exam: NORMAL BREATHING PATTERN. absent: Respiratory Distress - Cardiovascular Exam Cardiovascular Exam: REGULAR RHYTHM. absent: Tachycardia - GI/Abdominal Exam GI & Abdominal Exam: Soft. absent: Distended, Tenderness Assessment and Plan - Assessment and Plan (Free Text) Assessment: 61 y/o male w/ hydropneumothorax s/p pigtail chest tube placement with persistent pneumothorax Plan: -Chest tube to remain on -20mmHg today, do not clamp or remove from wall suction -pnx appears resolved today on am CXR -encourage OOB -encourage IS use -plan to repeat am CXR, if lung remains expanded with place tube to water seal on Wednesday -if lung remains expanded on water seal for 24hrs will plan to remove pigtail catheter bedside -d/w Dr. Earle Love PGY3
[2017-05-25] MEDS: Potassium Chloride 20 mEq ER Tab PO SCH (11:02)
--- NOTE | 2017-05-25 11:08 | PN ---
DATE: 05/25/2017 PULMONARY NOTE SUBJECTIVE: The patient appears very comfortable this morning. He is not short of breath at rest. PHYSICAL EXAMINATION VITAL SIGNS: Temperature is 97.8, pulse is 76, respirations 19, blood pressure 146/79. Oxygen saturation on nasal cannula is 100%. HEENT: Normocephalic, atraumatic. No JVD. CARDIOVASCULAR: Positive S1, S2. Positive S3 gallop. LUNGS: Better breath sounds to the right lung. Slight decreased breath sounds at both bases. No rhonchi. No wheezing. EXTREMITIES: Less edema. No cyanosis, no clubbing. Calves are nontender to palpation. GI: Abdomen is soft, nontender and nondistended. Bowel sounds are positive. SKIN: No acute rash. NEUROLOGIC: Limited at the present time. PERTINENT LABORATORY DATA: Chest x-ray was done this morning and reviewed. There is no significant right pneumothorax noted. Official results are pending. IMPRESSION: 1. Recurrent congestive heart failure. 2. Chronic pleural effusions - very large/increasing right pleural effusion. Status post chest tube. 3. Right pneumothorax - resolving. 4. Acute on chronic kidney disease. 5. Chronic anemia. 6. Status post liver transplant. PLAN: The patient appears very comfortable this morning. He is not short of breath at rest. He does state to feeling much, much better overall. On physical exam, there is no bronchospasm noted. In addition, the oxygen saturation on nasal cannula is now 100%. I will continue the current nebulizer treatments for now. I did review the chest x-ray as above. The chest x-ray does not show a significant right pneumothorax. Official results are pending. Input by Surgery (Dr. Og) is noted. As noted in yesterday's assessment, the pleural fluid is negative for malignant cells. In addition, all cultures are negative. I would continue with the treatment for his congestive heart failure as per Cardiology and Renal. The patient remains on Lasix therapy. Clinical status of the patient is significantly improved overall. He does remain guarded. I will discuss the above with Dr. Elliott later this morning. Terry Nick MD [facility] # [id number] MTDD
[2017-05-25] MEDS: CYCLOSPORINE MODIFIED 50 MG PO SCH ×2 (11:13→18:02)
--- NOTE | 2017-05-25 14:13 | PN ---
DATE: 05/25/2017 CARDIOLOGY FOLLOWUP SUBJECTIVE: The patient is comfortable without shortness of breath. PHYSICAL EXAMINATION: VITAL SIGNS: Blood pressure 126/74, heart rates in the 70s. NECK: Negative JVD. LUNGS: Without rales. HEART: With S1, S2. EXTREMITIES: Without edema. LABORATORY DATA: Hemoglobin is 9.4. Chemistries: BUN and creatinine are 51 and 1.7. IMPRESSION: 1. Improvement of the pleural effusion with the chest tube. 2. Status post liver transplantation. 3. History of hypertension. 4. Resolution of dyspnea. 5. Preserved left ventricular function. PLAN: Given these findings, we will discontinue telemetry today. The patient is awaiting for decisions from Surgery as well as Pulmonary about further plans for the patient's chest tube. Jose Martin Mccormack MD
[2017-05-25] MEDS: Lidocaine 5% Patch TD SCH (14:20)
--- NOTE | 2017-05-25 14:34 | PN ---
DATE: SUBJECTIVE: I saw Earnest resting comfortably in bed. He is very upset this morning. He is now n.p.o. I believe there is a possibility of doing a chest tube. I went over the chest x-ray with Dr. Nick and also with Dr. Og I can do a chest tube pneumothorax. I just find out today he has also been clamping the chest tube and has been walking around which is not helping him heal. He was scolded on that, not to do that anymore, that is harming him. PHYSICAL EXAMINATION: VITAL SIGNS: He has a 97.8 temperature, 74 pulse, 146/79 blood pressure, 19 respiratory rate, 100% O2 on nasal cannula. HEENT: The head is atraumatic, normocephalic. HEART: Regular rate. LUNGS: Clear to auscultation. ABDOMEN: Soft. EXTREMITIES: No edema. LABORATORY DATA: He has a 6.2 white count, 9.4 hemoglobin, 28.7 hematocrit, 199 platelets. He has 140 sodium, potassium is pending, BUN is 51, creatinine 1.7 but the same, GFR is 41, sugar is 130. Calcium 9.3. Total bilirubin is 0.6, AST is 46, ALT is 69, alkaline phosphatase 332, total protein 5.8. He is being seen by Surgery, Renal, Pulmonology. He had a chest x-ray this morning which showed smaller pleural effusion, no pneumothorax. Right pleural pigtail catheter unchanged and is definitely a little bit better. I am hoping that they could eventually take this chest tube out and seal him up, so we will get him out of the hospital. This morning's chest x-ray said no pneumothorax and I am very happy about that. He is on azithromycin, Xopenex, Pepcid, Norvasc, Lidoderm, Lasix, potassium, folic acid, Feosol, Neoral, Coreg, Cellcept, ad Bactroban cream. Continue with aggressive treatment and care on Kelechi Soto. Thank you very much. Giovanny Elliott DO [facility]
--- NOTE | 2017-05-25 19:51 | PN ---
DATE: SUBJECTIVE: The patient is currently seen lying comfortable supine in bed on telemetry. He states that he continues to still have drainage from the chest tube. His creatinine is at his baseline level of 1.7. He reports that the chest x-ray done earlier today showed a small left pleural effusion, right pleural effusion had resolved with the right pleural pigtail catheter. MEDICATIONS: Medication list reviewed. The patient is currently on mupirocin, CellCept, Coreg, cyclosporin, Feosol, folic acid, K tabs, p.o. Lasix, Lidoderm, Norvasc, Pepcid, Xopenex and Zithromax. OBJECTIVE INTAKE/OUTPUT: Intake 900, output 1500. VITAL SIGNS: Blood pressure 142/87, temperature 97.8, respiratory rate 20 with a pulse of 77. HEENT: Shows him to be normocephalic, atraumatic. Conjunctivae are pale. Sclerae nonicteric. NECK: Supple. No neck vein distention. CHEST: Clear to auscultation and percussion with no significant decreased breath sounds at the right or left base. Positive chest tube in place on the right side. CARDIOVASCULAR: Regular rate and rhythm with tricuspid regurgitation. No S3, no S4, no rub. ABDOMEN: Soft. No distention. No tenderness. No masses. No rebound or guarding. EXTREMITIES: Show no lower extremity cyanosis, clubbing or edema. LABORATORY DATA AND IMAGING: CBC: White blood cell count today is 6.2, hemoglobin 9.4, platelet count of 199,000. Chemistry showed normal electrolytes. BUN 51 with a creatinine of 1.7. The creatinine of 1.7 is at his best baseline levels. Glucose is 130. Mild elevation of his alkaline phosphatase and ALT. Albumin is 3.3. ASSESSMENT: 1. Mild prerenal azotemia, superimposed on chronic kidney disease stage III. Creatinine is actually below his most recent outpatient baseline levels, which were in the low 2s. Baseline BUN is ranged anywhere from the upper 40s to the low 70s. From a renal standpoint, the patient appears to be stable. It is felt that he has chronic kidney disease secondary to long-term use of calcineurin inhibitors for his liver transplant. 2. Status post liver transplant in 2002 secondary to cirrhosis and likely alcohol use. 3. History of hypertension. Blood pressure is acceptable on present medication. I will continue Coreg and calcium channel doris therapy. No plans for CRESCENCIO inhibitors or angiotensin receptor blockers. 4. Status post right pleural effusion. This has resolved with placement of a chest tube. Plan possibly is to remove the chest tube tomorrow. 5. History of pulmonary hypertension with tricuspid regurgitation, ejection fraction 53%. 6. History of anemia with normal iron saturations. This is likely secondary to chronic kidney disease. 7. A 5 cm pancreatic cystic mass. This appears to be stable on radiographic studies. PLAN: 1. The patient his BUN and creatinine being at or below his baseline levels. 2. The patient may continue low-dose Lasix therapy along with potassium supplements. 3. Continue present immunosuppression for his liver transplant. 4. Duration of antibiotic therapy?. 5. As noted in previous notes, the patient will follow with us in the outpatient setting for his chronic kidney disease. Krish Rueda MD
[2017-05-26] MEDS: Levalbuterol 0.63 MG/3 ML Inhal Soln UD IH SCH ×4 (03:00→19:55)
[2017-05-26 06:37] LABS: HEMOGLOBIN 9.1 g/dL (14.0-18.0); MEAN CELL VOLUME 86.5 fl (80.0-105.0); MEAN CORPUSCULAR HGB CONC 32.4 g/dl (31.0-37.0); MEAN PLATELET VOLUME 8.5 fl (7.0-11.0); RBC 3.25 10^6/uL (3.5-6.1); RED CELL DISTRIBUTION WIDTH 13.8 % (11.5-14.5)
[2017-05-26 06:47] LABS: ALB/GLOB RATIO 1.2 (1.1-1.8); ALBUMIN 3.4 g/dL (3.0-4.8); CALCIUM 9.3 mg/dL (8.4-10.5)
--- NOTE | 2017-05-26 08:25 | RAD ---
HISTORY: pnx comparison COMPARISON: Portable chest 05/25/2017. FINDINGS: Right pleural catheter unchanged in position. LUNGS: No right-sided infiltrate identified. Underlying left basilar atelectasis or infiltrate is not excluded no left pleural effusion is not significantly changed an and may be the only reason for left basilar opacity. Clinically correlate further. No right pleural effusion or pneumothorax bilaterally. CARDIOVASCULAR: Normal. OSSEOUS STRUCTURES: No significant abnormalities. VISUALIZED UPPER ABDOMEN: Normal. OTHER FINDINGS: None. IMPRESSION: Stable left basilar opacity likely reflective of mild pleural effusions though underlying atelectasis or infiltrate is not excluded. None is seen at the right. Right pleural catheter again evident.
[2017-05-26] MEDS: Potassium Chloride 20 mEq ER Tab PO SCH (09:00)
[2017-05-26] MEDS: Lidocaine 5% Patch TD SCH (09:14)
[2017-05-26] MEDS: CYCLOSPORINE MODIFIED 50 MG PO SCH ×2 (09:15→17:38)
--- NOTE | 2017-05-26 10:24 | CP.PCM.PN ---
Subjective - Date & Time of Evaluation Date of Evaluation: 05/26/17 Time of Evaluation: 10:00 - Subjective Subjective: Patient seen and examined at bedside. No adverse events overnight. No respiratory distress. Patient complains of back and rib pain Objective - Vital Signs/Intake and Output Vital Signs (last 24 hours): Temp Pulse Resp BP Pulse Ox 98.6 F 74 20 134/57 L 96 05/26/17 05:41 05/26/17 09:18 05/26/17 05:41 05/26/17 09:18 05/26/17 05:41 Intake and Output: 05/26/17 05/26/17 06:59 18:59 Intake Total 240 Output Total 715 Balance -475 - Medications Medications: Current Medications Amlodipine Besylate (Norvasc) 5 mg PO BID [facility] Last Admin: 05/26/17 09:18 Dose: 5 mg Azithromycin (Zithromax) 250 mg PO DAILY [facility] Last Admin: 05/26/17 09:12 Dose: 250 mg Carvedilol (Coreg) 12.5 mg PO BID [facility] Last Admin: 05/26/17 09:13 Dose: 12.5 mg Famotidine (Pepcid) 20 mg PO HS [facility] Last Admin: 05/25/17 22:30 Dose: 20 mg Ferrous Sulfate (Feosol) 324 mg PO TID [facility] Last Admin: 05/26/17 09:13 Dose: 324 mg Folic Acid (Folic Acid) 1 mg PO DAILY [facility] Last Admin: 05/26/17 09:12 Dose: 1 mg Furosemide (Lasix) 40 mg IVP Q12 [facility] Last Admin: 05/26/17 09:13 Dose: 40 mg Levalbuterol HCl (Xopenex) 0.63 mg IH Q6H [facility] Last Admin: 05/26/17 07:42 Dose: Not Given Lidocaine (Lidoderm) 1 ea TD DAILY [facility] Last Admin: 05/26/17 09:14 Dose: Not Given Mupirocin (Bactroban Ointment) 0 gm TOP BID [facility] Last Admin: 05/26/17 09:17 Dose: Not Given Mycophenolate Mofetil (Cellcept Cap) 1,250 mg PO BID [facility] Last Admin: 05/26/17 09:13 Dose: 1,250 mg Non-Formulary Medication (Cyclosporine, Modified [Neoral]) 50 mg PO BID [facility] Last Admin: 05/26/17 09:15 Dose: 50 mg Potassium Chloride (K-Dur 20 Meq Er Tab) 20 meq PO BRK [facility] Last Admin: 05/26/17 09:00 Dose: 20 meq - Labs Labs: 05/26/17 06:00 05/26/17 06:00 PT 13.2 SECONDS (9.4-12.5) H 05/18/17 05:15 INR 1.14 (0.93-1.08) H 05/18/17 05:15 APTT 29.5 Seconds (25.1-36.5) 05/17/17 08:55 - Constitutional Appears: Well, Non-toxic, No Acute Distress - Head Exam Head Exam: ATRAUMATIC, NORMOCEPHALIC - Eye Exam Eye Exam: Normal appearance. absent: Conjunctival injection, Scleral icterus - ENT Exam ENT Exam: Mucous Membranes Moist, Normal Oropharynx - Respiratory Exam Respiratory Exam: NORMAL BREATHING PATTERN. absent: Accessory Muscle Use, Respiratory Distress - GI/Abdominal Exam GI & Abdominal Exam: absent: Distended - Neurological Exam Neurological Exam: Alert, Awake, Oriented x3 - Psychiatric Exam Psychiatric exam: Normal Affect, Normal Mood - Skin Skin Exam: Dry, Intact, Normal Color, Warm Assessment and Plan - Assessment and Plan (Free Text) Assessment: 61M with recurrent right pleural effusions with IR pigtail drain in place 350cc's serous fluid drainage output from chest tube CXR 2 AM: no right pneumo/hydrothorax Plan: -Place chest tube on water seal -Repeat CXR at 2:30 PM -Monitor closely for respiratory distress -May discontinue chest tube tomorrow if it remains stable Discussed with Dr. Earle Suero [id number]
--- NOTE | 2017-05-26 10:28 | PN ---
DATE: 05/26/2017 PULMONARY NOTE SUBJECTIVE: The patient appears very comfortable this morning. He is not short of breath at rest. PHYSICAL EXAMINATION: VITAL SIGNS: Temperature is 98.6, pulse 80, respirations 18, blood pressure 130/67. Oxygen saturation on nasal cannula is 98%. HEENT: Normocephalic, atraumatic. No JVD. CARDIOVASCULAR: Positive S1, S2. Positive S3 gallop. LUNGS: Improved breath sounds to the right lung. Slight decreased breath sounds at both bases. No rhonchi. No wheezing. EXTREMITIES: Less edema. No cyanosis. No clubbing. Calves are nontender to palpation. GI: Abdomen is soft, nontender and nondistended. Bowel sounds are positive. SKIN: No acute rash. NEUROLOGIC: Limited at the present time. IMPRESSION: 1. Recurrent congestive heart failure. 2. Chronic pleural effusions - very large/increasing right pleural effusion. Status post chest tube. 3. Right pneumothorax - resolving. 4. Acute on chronic kidney disease. 5. Chronic anemia. 6. Status post liver transplant. PLAN: The patient appears very comfortable this morning. He is not short of breath at rest. He does state to feeling much better overall. On physical exam, there is certainly increased breath sounds to the right lung. I am awaiting the repeat chest x-ray to be done. On physical exam, there is no significant bronchospasm noted. In addition, the oxygen saturation on nasal cannula is 98%. I will continue with the current nebulizer treatments for now. I would continue with the chest tube management as per Surgery. Their input is noted. Clinical status of the patient continues to slowly improve. I will discuss the above with Dr. Elliott. Terry Nick MD MTDD
--- NOTE | 2017-05-26 14:26 | PN ---
DATE: 05/26/2017 SUBJECTIVE: He is getting frustrated here in [facility] He has a chest tube in. He stands up and sits down. He has not taken off the suction, which is good. He was doing it earlier in the week. He is eating little bit, just wants the chest tube out. PHYSICAL EXAMINATION: GENERAL: He is breathing comfortably, in no acute distress. No chest pain. No shortness of breath. No abdominal pain. No extremity swelling. VITAL SIGNS: He has a 98.6 temperature, 80 pulse, 130/67 blood pressure, 20 respiratory rate, 96% O2 sat on room air. HEENT: His head is atraumatic, normocephalic. HEART: Regular rate. LUNGS: Clear to auscultation bilaterally with a chest tube in on the right side. ABDOMEN: Soft. EXTREMITIES: No edema. MEDICATIONS: He is on Bactroban cream, CellCept, Coreg, cyclosporine, Feosol, folic acid, potassium, Lasix, Lidoderm, Norvasc, Pepcid, Xopenex, and azithromycin. LABORATORY DATA: He has a 7 white count, 9.1 hemoglobin, 28.1 hematocrit, 192 platelets. He has a 140 sodium, potassium 4.4, BUN is 46, creatinine 1.6, GFR is 44, sugar is 111, calcium is 9.3, total bilirubin is 0.9, AST is 39, ALT is 54, alkaline phosphatase 350, total protein 6.3. ASSESSMENT AND PLAN: He is being seen by numerous physicians: Renal, Cardiology, Pulmonary, and Surgery. Hoping to possibly stop the suction, recheck a chest x-ray, see if it is up. If the lungs continue to stay up, may be we could then take up the chest tube. He is still draining a 100 mL in the last 12 hours. Last chest x-ray shows small left pleural effusion. No pneumothorax on suction. Continue aggressive treatment and care for pneumothorax on the right side. We will check his labs tomorrow. Giovanny Elliott DO
--- NOTE | 2017-05-26 15:20 | RAD ---
HISTORY: re-assess right pneumothorax COMPARISON: Multiple serial examinations preceding the most recent study: May 26, 2017. Time of the most recent examination: 07:49. FINDINGS: LUNGS: Stable consolidative changes particularly left lower lobe. PLEURA: Tiny right apical pneumothorax. Stable position of pigtail catheter the right pleural space. Stable left pleural. CARDIOVASCULAR: Normal. OSSEOUS STRUCTURES: No significant abnormalities. VISUALIZED UPPER ABDOMEN: Normal. OTHER FINDINGS: None. IMPRESSION: Tiny right apical pneumothorax.
--- NOTE | 2017-05-26 16:43 | PN ---
DATE: 05/26/2017 SUBJECTIVE: The patient is seen sitting in bed. He is awake. He is alert. He is comfortable. PHYSICAL EXAMINATION: GENERAL: Thinly built elderly male, sitting in bed. VITAL SIGNS: Blood pressure 135/73, heart rate 79, respiratory rate 20, temperature 97.4. HEENT: Normocephalic, atraumatic, positive pallor. NECK: Supple, no JVD. LUNGS: Bilateral equal air entry; fair expansion, right side. CARDIAC: S1 and S2, regular rate and rhythm, no murmur, no rub. ABDOMEN: Distended, soft, bowel sounds present. EXTREMITIES: No lower extremity edema. INTAKE AND OUTPUT: 500/1485. LABORATORY DATA: WBC 7, hemoglobin 9, hematocrit 28, platelets 192. Sodium 140, potassium 4.4, chloride 108, CO2 of 20, BUN 46, creatinine 1.6, glucose 111, calcium 9.3, AST 39, ALT 64. Chest x-ray: No right-sided infiltrate, underlying left basilar atelectasis, no left pleural effusion, no right pleural effusion or pneumothorax. CURRENT MEDICATIONS: List reviewed. ASSESSMENT: 1. Right-sided pleural effusion, status post chest tube. 2. Right pneumothorax. 3. Resolved acute kidney injury. 4. Stable chronic kidney disease stage 3/4. 5. Chronic anemia. 6. Liver transplant, ascites. PLAN: 1. Continue Lasix, now on 40 mg q. 12 hours. 2. Replace potassium as needed. 3. Avoid over diuresis. 4. Continue immunosuppression. 5. Monitor electrolytes. Lu Pike MD
[2017-05-27 00:34] VITALS: RESP 20; O2SAT 100
[2017-05-27 07:24] LABS: HEMOGLOBIN 10.1 g/dL (14.0-18.0); MEAN CELL VOLUME 86.8 fl (80.0-105.0); MEAN CORPUSCULAR HEMOGLOBIN 28.5 pg (25.0-35.0); MEAN CORPUSCULAR HGB CONC 32.8 g/dl (31.0-37.0); MEAN PLATELET VOLUME 8.9 fl (7.0-11.0); RBC 3.55 10^6/uL (3.5-6.1); RED CELL DISTRIBUTION WIDTH 13.9 % (11.5-14.5); WHITE BLOOD COUNT 8.9 10^3/ul (4.5-11.0)
[2017-05-27] MEDS: Levalbuterol 0.63 MG/3 ML Inhal Soln UD IH SCH ×2 (07:36→13:45)
[2017-05-27 07:49] LABS: ALB/GLOB RATIO 1.2 (1.1-1.8); ALBUMIN 3.9 g/dL (3.0-4.8)
--- NOTE | 2017-05-27 07:50 | PN ---
DATE: 05/27/2017 PULMONARY NOTE SUBJECTIVE: The patient appears very comfortable this morning. He is not short of breath at rest. PHYSICAL EXAMINATION VITAL SIGNS: Temperature is 97.3, pulse is 87, respirations 18/20, blood pressure 140/74. Oxygen saturation on nasal cannula is 100%. HEENT: Normocephalic, atraumatic. No JVD. CARDIOVASCULAR: Positive S1, S2. Positive S3 gallop. LUNGS: Improved breath sounds to the right lung. Slight decreased breath sounds at the bases. No rhonchi. No wheezing. EXTREMITIES: Less edema. No cyanosis, no clubbing. Calves are nontender to palpation. GI: Abdomen is soft, nontender and nondistended. Bowel sounds are positive. SKIN: No acute rash. Right chest tube in place. NEUROLOGIC: Limited at the present time. PERTINENT LABORATORY DATA: Chest x-ray was repeated yesterday afternoon. Only a tiny right apical pneumothorax remains. There is also a small left pleural effusion noted. IMPRESSION: 1. Recurrent congestive heart failure. 2. Chronic pleural effusions - very large/increasing right pleural effusion. Status post chest tube. 3. Right pneumothorax - resolving. 4. Acute on chronic kidney disease. 5. Chronic anemia. 6. Status post liver transplant. PLAN: The patient appears very comfortable this morning. He is not short of breath at rest. He does state to feeling much, much better overall. I did review the last chest x-ray - as above. Only a tiny right pneumothorax remains. Repeat chest x-ray is ordered for the morning. I will check that when feasible. I would continue with the management of the chest tube as per Surgery. Their input is noted. The patient remains on nebulizer treatments. There is no bronchospasm on physical exam. In addition, the oxygen saturation on nasal cannula is now 100%. I would continue the Cardiology and Renal evaluations. Inputs are noted. The patient remains on intravenous Lasix. Clinical status of the patient is significantly improved. I will discuss the above with Dr. Elliott. Terry Nick MD [facility]
[2017-05-27] MEDS: Potassium Chloride 20 mEq ER Tab PO SCH (08:27)
--- NOTE | 2017-05-27 08:56 | RAD ---
HISTORY: pnx comparison COMPARISON: Portable chest 05/26/2017 2:29 p.m. FINDINGS: LUNGS: Diminishing infiltrate left base. No definite right-sided infiltrate. PLEURA: Diminishing left pleural effusion. None is seen at the right. Right pleural catheter again seen in position, stable. Stable right apical pneumothorax remains minimal in volume with none on the left. CARDIOVASCULAR: Normal. OSSEOUS STRUCTURES: No significant abnormalities. VISUALIZED UPPER ABDOMEN: Normal. OTHER FINDINGS: None. IMPRESSION: Stable limited right apical pneumothorax with pleural catheter unchanged in position. Diminishing left basilar infiltrate. Left pleural effusion also somewhat diminished.
[2017-05-27] MEDS: Lidocaine 5% Patch TD SCH (09:40)
[2017-05-27] MEDS: CYCLOSPORINE MODIFIED 50 MG PO SCH (09:41)
[2017-05-27 09:48] VITALS: PULSE 80
[2017-05-27 11:44] VITALS: BP 134/79; TEMP 98
--- NOTE | 2017-05-27 11:47 | PN ---
DATE: 05/27/2017 CARDIOLOGY FOLLOWUP SUBJECTIVE: The patient is comfortable. Chest tube is still in place. PHYSICAL EXAMINATION VITAL SIGNS: Blood pressure is 140/74, the heart rates in the 80s. NECK: Negative JVD. LUNGS: Good breath sounds bilaterally. HEART: Reveals S1, S2. EXTREMITIES: Without edema. LABORATORY DATA: Hemoglobin is 10.1. Chemistries: BUN and creatinine is 52 and 1.8. Chest x-ray from yesterday reveals improved aeration of both sides. There is a small pericardial effusion on the left and there is a small apical pneumothorax on the right. IMPRESSION: 1. Pleural effusion which is better after chest tube. 2. History of liver transplant 3. Dyspnea, which is now resolved. 4. History of hypertension. PLAN: Given these findings, it is likely the patient's chest to be removed today. We will continue Lasix. Jose Martin Mccormack MD
[2017-05-27] MEDS ORDERED: Pneumococcal 23-Valent Vaccine IM ONE ×2 (12:56→13:00)
--- NOTE | 2017-05-27 14:32 | CP.PCM.PN ---
Subjective - Date & Time of Evaluation Date of Evaluation: 05/27/17 Time of Evaluation: 14:35 - Subjective Subjective: General surgery progress note for Dr. Og Patient seen and examined at bedside. No acute events overnight. He states he is feeling well and is not having trouble breathing. Objective - Vital Signs/Intake and Output Vital Signs (last 24 hours): Temp Pulse Resp BP Pulse Ox 98 F 80 20 134/79 100 05/27/17 11:43 05/27/17 11:43 05/27/17 11:43 05/27/17 11:43 05/27/17 06:00 Intake and Output: 05/27/17 05/27/17 06:59 18:59 Intake Total 240 Output Total 700 Balance -460 - Medications Medications: Current Medications Amlodipine Besylate (Norvasc) 5 mg PO BID [facility] Last Admin: 05/27/17 09:39 Dose: 5 mg Azithromycin (Zithromax) 250 mg PO DAILY [facility] Last Admin: 05/27/17 09:39 Dose: 250 mg Carvedilol (Coreg) 12.5 mg PO BID [facility] Last Admin: 05/27/17 09:39 Dose: 12.5 mg Famotidine (Pepcid) 20 mg PO HS [facility] Last Admin: 05/26/17 21:35 Dose: 20 mg Ferrous Sulfate (Feosol) 324 mg PO TID [facility] Last Admin: 05/27/17 13:32 Dose: 324 mg Folic Acid (Folic Acid) 1 mg PO DAILY [facility] Last Admin: 05/27/17 09:38 Dose: 1 mg Furosemide (Lasix) 40 mg IVP Q12 [facility] Last Admin: 05/27/17 09:38 Dose: 40 mg Levalbuterol HCl (Xopenex) 0.63 mg IH Q6H [facility] Last Admin: 05/27/17 13:45 Dose: Not Given Lidocaine (Lidoderm) 1 ea TD DAILY [facility] Last Admin: 05/27/17 09:40 Dose: 1 ea Mupirocin (Bactroban Ointment) 0 gm TOP BID [facility] Last Admin: 05/27/17 09:41 Dose: Not Given Mycophenolate Mofetil (Cellcept Cap) 1,250 mg PO BID [facility] Last Admin: 05/27/17 09:38 Dose: 1,250 mg Non-Formulary Medication (Cyclosporine, Modified [Neoral]) 50 mg PO BID [facility] Last Admin: 05/27/17 09:41 Dose: 50 mg Potassium Chloride (K-Dur 20 Meq Er Tab) 20 meq PO BRK [facility] Last Admin: 05/27/17 08:27 Dose: 20 meq - Labs Labs: 05/27/17 06:40 05/27/17 06:40 PT 13.2 SECONDS (9.4-12.5) H 05/18/17 05:15 INR 1.14 (0.93-1.08) H 05/18/17 05:15 APTT 29.5 Seconds (25.1-36.5) 05/17/17 08:55 - Constitutional Appears: Well - Head Exam Head Exam: ATRAUMATIC, NORMAL INSPECTION, NORMOCEPHALIC - Eye Exam Eye Exam: EOMI, Normal appearance, PERRL Pupil Exam: NORMAL ACCOMODATION, PERRL - ENT Exam ENT Exam: Mucous Membranes Moist, Normal Exam - Neck Exam Neck Exam: Full ROM, Normal Inspection. absent: Lymphadenopathy - Respiratory Exam Respiratory Exam: Clear to Ausculation Bilateral, NORMAL BREATHING PATTERN - Cardiovascular Exam Cardiovascular Exam: REGULAR RHYTHM, +S1, +S2. absent: Murmur - GI/Abdominal Exam GI & Abdominal Exam: Soft, Normal Bowel Sounds. absent: Tenderness - Rectal Exam Rectal Exam: NORMAL INSPECTION - Exam Exam: Circumcision, NORMAL INSPECTION External exam: NORMAL EXTERNAL EXAM Speculum exam: NORMAL SPECULUM EXAM Bimanual exam: NORMAL BIMANUAL EXAM - Extremities Exam Extremities Exam: Full ROM, Normal Capillary Refill, Normal Inspection. absent : Joint Swelling, Pedal Edema - Back Exam Back Exam: NORMAL INSPECTION - Neurological Exam Neurological Exam: Alert, Awake, CN II-XII Intact, Normal Gait, Oriented x3 - Psychiatric Exam Psychiatric exam: Normal Affect, Normal Mood - Skin Skin Exam: Dry, Intact, Normal Color, Warm Assessment and Plan - Assessment and Plan (Free Text) Assessment: 61M with recurrent right pleural effusions with IR pigtail drain in place 350cc's serous fluid drainage output from chest tube CXR 05/27 AM: apical pneumothorax Plan: -Place chest tube on water seal -Stable apical pneumothorax on CXR this AM -Monitor closely for respiratory distress -May discontinue chest tube if it remains stable
--- NOTE | 2017-05-27 15:32 | RAD ---
HISTORY: s/p pigtail removal COMPARISON: 05/27/2017 FINDINGS: LUNGS: The lungs are well inflated. There is mild left basilar airspace disease PLEURA: Status post removal of right pigtail catheter. There is a small right hydro pneumothorax. , no pneumothorax apparent. CARDIOVASCULAR: Normal. OSSEOUS STRUCTURES: No significant abnormalities. VISUALIZED UPPER ABDOMEN: Normal. OTHER FINDINGS: None. IMPRESSION: Status post removal of right pigtail chest catheter, small right hydro pneumothorax. Small left pleural effusion.
--- NOTE | 2017-05-27 18:57 | PN ---
DATE: 05/27/2017 SUBJECTIVE: The patient is seen lying in bed. He is awake, he is alert, he is comfortable. PHYSICAL EXAMINATION: GENERAL: Elderly male lying in bed. VITAL SIGNS: Blood pressure 134/79, heart rate 80, respiratory rate 20, temperature 98. HEENT: Normocephalic, atraumatic. NECK: Supple, no JVD. LUNGS: Bilateral air entry, decreased breath sounds in the right side, CARDIAC: S1 and S2, regular rate and rhythm, no murmur, no rub. ABDOMEN: Obese, distended, soft, nontender, bowel sounds present. EXTREMITIES: No lower extremity edema. INTAKE AND OUTPUT: 960/1400. LABORATORY DATA: WBC 8.9, hemoglobin 10, hematocrit 30.8, platelets 217. Sodium 137, potassium 4.6, chloride 104, CO2 of 21, BUN 52, creatinine 1.8, glucose 120, calcium 10.0, AST 46, ALT 64. Chest x-ray, well inflated lungs, status post removal of pigtail catheter, small right pneumothorax. CURRENT MEDICATIONS: Include Lasix 40 IV q. 12, potassium. ASSESSMENT: 1. Mild acute kidney injury superimposed on chronic kidney disease stage III, prerenal azotemia. 2. History of liver transplant, ascites. 3. Right-sided pleural effusion, status post chest tube, status post removal of chest tube. 4. Hypertension. PLAN: 1. Avoid over-diuresis. 2. Continue immunosuppression. 3. Continue antihypertensives Lu Pike MD
--- NOTE | 2017-05-28 08:30 | PN ---
DATE: 05/27/2017 Kelechi Charles is seen. There is a small apical pneumothorax that is minimal. Still draining a fair amount of fluid from the drain. We will discuss with IR before we remove the tube. Marco Og MD
--- NOTE | 2017-05-28 09:02 | DS ---
HISTORY OF PRESENT ILLNESS: He is comfortable in bed. The chest tube has been stopped from the suction. His chest x-ray this morning, I think is pretty good and I am hoping possibly we can take the chest tube out today and discharge him. He had a stable limited right apical pneumothorax with pleural catheter unchanged in position, diminishing left basilar infiltrate, left pleural effusion also somewhat diminished. So, he is improving greatly. He is comfortable. Clinically, he is doing very well. PHYSICAL EXAMINATION: VITAL SIGNS: He has 97.3 temp, 87 pulse, 140/74 blood pressure, 20 respiratory rate, 100% O2 sat. HEAD: Atraumatic, normocephalic. HEART: Regular rate. LUNGS: Clear to auscultation bilaterally. ABDOMEN: Soft. EXTREMITIES: No edema. MEDICATIONS: He is currently on Bactroban cream, Cellcept, Coreg, cyclosporine, Feosol, folic acid, potassium, Lasix, Lidoderm, Norvasc, Pepcid, Xopenex, Zithromax. LABORATORY DATA: He has 8.9 white count, 10.1 hemoglobin, 30.8 hematocrit with 217 platelets. He has 137 sodium, potassium of 4.6, BUN 52, creatinine 1.8, GFR 39, sugar is 120, calcium is 10. Total bili is 0.9, AST is 46, ALT is 64, alk phos 429, total protein 7.0. ASSESSMENT: He did have a urinary tract infection and is on antibiotics. PLAN: My plan for him, if it is okay with Pulmonary and Surgery, is to discharge him today home. He has his medications; he will not need anymore antibiotics. I am hoping we can discharge him later today; he had multiple problems; he had right pleural effusion, white-out pneumothorax, UTI. I will see him in the office next week. Giovanny Elliott DO
== END 2017-05-27 17:01 | disposition home or self-care (01) | DRG 187 ==
LOC: ED 17:08 → ERH 18:33 → 2RSO 22:24
PROVIDERS: ADMIT Family Medicine; ATTEND Family Medicine
PROC: 0W9930Z Drainage of Right Pleural Cavity with Drainage Device, Percutaneous Approach (ICD-10-PCS; principal; 2017-05-18 12:30)
PROC: 0WP830Z Removal of Drainage Device from Chest Wall, Percutaneous Approach (ICD-10-PCS; 2017-05-20)
PROC: 0W28X0Z Change Drainage Device in Chest Wall, External Approach (ICD-10-PCS; 2017-05-20)
DX: J90 Pleural effusion, not elsewhere classified (principal); I13.0 Hypertensive heart and chronic kidney disease with heart failure and stage 1 through stage 4 chronic kidney disease, or unspecified chronic kidney disease; I50.30 Unspecified diastolic (congestive) heart failure; N17.9 Acute kidney failure, unspecified; K86.2 Cyst of pancreas; R18.8 Other ascites; J93.9 Pneumothorax, unspecified; N39.0 Urinary tract infection, site not specified; Z94.4 Liver transplant status; N18.3 Chronic kidney disease, stage 3 (moderate); I27.29 Other secondary pulmonary hypertension; I07.1 Rheumatic tricuspid insufficiency; E11.22 Type 2 diabetes mellitus with diabetic chronic kidney disease; E11.65 Type 2 diabetes mellitus with hyperglycemia; D63.1 Anemia in chronic kidney disease; K74.60 Unspecified cirrhosis of liver; Z99.81 Dependence on supplemental oxygen

== ENCOUNTER 2018-04-20 10:59 | Outpatient (CLI) | payer MEDICARE, BC | END 2018-04-20 11:00 | disposition home or self-care (01) | LOC: RAD 10:59 | DX: J90 Pleural effusion, not elsewhere classified (principal); R05 Cough ==

== ENCOUNTER 2018-05-03 11:20 | Inpatient (IN) | payer MEDICARE, BC ==
[2018-05-03 13:14] VITALS: BMI 22.2
[2018-05-03 14:14] LABS: BASO # 0.01 K/mm3 (0.0-2.0); BASO % 0.3 % (0.0-3.0); EOS # 0.1 (0.0-0.7); GRAN # 2.3 (1.4-6.5); GRAN % 57.8 % (50.0-68.0); HEMOGLOBIN 11.4 g/dL (14.0-18.0); LYMPH # 1.1 (1.2-3.4); LYMPH % 28.1 % (22.0-35.0); MEAN CELL VOLUME 85.1 fl (80.0-105.0); MEAN CORPUSCULAR HEMOGLOBIN 28.4 pg (25.0-35.0); MEAN CORPUSCULAR HGB CONC 33.3 g/dl (31.0-37.0); MEAN PLATELET VOLUME 8.6 fl (7.0-11.0); MONO # 0.4 (0.1-0.6); MONO % 10.8 % (1.0-6.0); RBC 4.02 10^6/uL (3.5-6.1); RED CELL DISTRIBUTION WIDTH 13.4 % (11.5-14.5)
[2018-05-03 14:22] LABS: CALCIUM 9.3 mg/dL (8.4-10.5); INR 1.21; PARTIAL THROMBOPLASTIN TIME 39.5 Seconds (26.9-38.3); PROTHROMBIN TIME 13.4 SECONDS (9.4-12.5)
[2018-05-03 16:12] LABS: BODY FLUID TYPE PLEURAL
--- NOTE | 2018-05-03 16:35 | US ---
PROCEDURE: Ultrasound guided left thoracentesis. CLINICAL HISTORY: Recurrent pleural effusion. Shortness of breath. History liver transplant. Needs diagnostic and therapeutic thoracentesis PHYSICIAN(S): Jose Martin Whitlock MD. TECHNIQUE: The relative risks and indications of the procedure were explained to the patient and consent obtained. The patient was placed in a sitting position on the stretcher and sonography of the left chest performed. This revealed a large leftpleural effusion. A left posterolateral intercostal approach was selected and the area prepped and draped usual sterile fashion. 1% Xylocaine was used to anesthetize the skin and soft tissues. A 7 Bahraini thoracentesis catheter was trocared into the left pleural cavity and 2900 cc of clear straw-colored fluid aspirated. The appropriate labs were sent. IMPRESSION: 1. Ultrasound guided left thoracentesis. 2900 cc of clear straw-colored fluid was aspirated
[2018-05-03 16:56] LABS: BF GROSS APPEARANCE CLEAR (CLEAR); BODY FLUID TOTAL COUNT 100 (0-0)
[2018-05-03] MEDS ORDERED: CYCLOSPORINE MODIFIED 25 MG PO SCH (18:00)
[2018-05-03] MEDS ORDERED: Midazolam 2 MG/2 ML VIAL ONE (18:13)
--- NOTE | 2018-05-03 19:14 | CT ---
PROCEDURE: CT-guided left chest tube placement HISTORY: Status post left thoracentesis. Large left hydro pneumothorax with shortness of breath. Needs chest tube. PHYSICIAN(S): Jose Martin Whitlock MD. TECHNIQUE: The relative risks and indications for the procedure were explained to the patient and informed consent obtained. The patient was placed in a supine position on the CT scanner and preliminary images through the mid chest obtained. This revealed a large left hydropneumothorax. An anterior approach on the left was selected the area prepped and draped usual sterile fashion. Conscious sedation monitoring were provided throughout the procedure by a nurse. 1 percent xylocaine was used to anesthetize skin soft tissues. A 19 gauge needle was used to access the left pleural space anteriorly. A 0.035 guidewire was coiled in left pleural cavity. Sequential dilatation was performed. A 14 Bulgarian left chest tube was placed and retracted anteriorly. The catheter was secured and placed to 30 cm H2O low continuous suction. The left lung re-expanded. The catheter was flushed and secured IMPRESSION: 1. CT-guided left pigtail chest tube placement as described above
--- NOTE | 2018-05-03 21:57 | HP ---
DATE OF EXAM: 05/03/2018 HISTORY OF PRESENT ILLNESS: I was called by Dr. Jose Martin Whitlock. He is status post a left thoracentesis which 2900 mL removed fluid and then he had pneumothorax in the chest tube in place. He is resting comfortably in bed. Fentanyl was wearing off. He does have Percocet plus the case of pain. He is on oxygen on. Overall at this time seen him in the hospital bed in 262. He is comfortable. He is a 62-year-old white man who I know very well for many years. He just had a thoracentesis of 2900 mL taken off. He is resting comfortably in bed with a pneumothorax and left-sided chest tube. ALLERGIES: ALLERGIES TO TACROLIMUS. MEDICATIONS: He is currently on CellCept, Coreg, Feosol, folic acid, Lasix, magnesium, Norvasc, Pepcid, Percocet as needed, sodium bicarbonate and Tylenol. PAST MEDICAL HISTORY: Hypertension, edema, anemia, cirrhosis, liver transplant in 2002. SOCIAL HISTORY: Nonsmoker. No drinking. No drugs. REVIEW OF SYSTEMS: He has no acute vision changes or hearing changes. No sore throat. No neck pain. No chest pain. He was acutely short of breath. He was breath at rest. No wheezes. with the left chest tube. No abdominal pain, nausea, vomiting, constipation, diarrhea. Extremities have no edema at this time. PHYSICAL EXAMINATION: GENERAL: He is resting in bed comfortable, oxygen on. He is alert and oriented x3. VITAL SIGNS: He has a temperature of 97.7, pulse 60, blood pressure 129/70, respiratory rate 20, 96% O2 sat on 3 liters cannula. HEENT: Head is atraumatic, normocephalic. Extraocular muscles are intact. Pupils equal, reactive to light and accommodation. Throat is moist. NECK: Supple. CARDIOPULMONARY: Regular rate. Normal S1, S2. LUNGS: Decreased breath sounds especially on the left side, but clear to auscultation on the right. ABDOMEN: Soft, nontender. Positive bowel sounds. No guarding, rebound or CVA tenderness. There is a scar from the liver transplant on his abdomen. EXTREMITIES: Trace edema. NEUROLOGIC: GCS is 15. Cranial nerves II through XII grossly intact. SKIN: Warm and dry. No apparent rashes or ulcers appreciated. LYMPH: Thyroid midline. No palpable appreciable lymphadenopathy. LABORATORY DATA: He had a white count of 4, hemoglobin 11.4, hematocrit 34.2 with platelets 204. INR is 1.21. He has a sodium 147, potassium 4.2, BUN 67, creatinine 2.7, little elevated, GFR is 24, sugar is 99, calcium 9.3. He had a CAT scan of the chest which showed CT-guided left pigtail chest tube placed as described above. IMPRESSION AND PLAN: He is now in [facility]. He will have a chest tube with suction and labs in the morning, and hopefully he will do very well. Giovanny Elliott DO MTDD
[2018-05-03] MEDS: Oxycodone/Acetaminophen 5/325 mg Tab PO PRN (22:08)
[2018-05-04 07:10] LABS: ALB/GLOB RATIO 1.3 (1.1-1.8); ALBUMIN 3.5 g/dL (3.0-4.8); CALCIUM 8.7 mg/dL (8.4-10.5); HEMOGLOBIN 10.6 g/dL (14.0-18.0); MEAN CELL VOLUME 85.7 fl (80.0-105.0); MEAN CORPUSCULAR HEMOGLOBIN 28.1 pg (25.0-35.0); MEAN CORPUSCULAR HGB CONC 32.8 g/dl (31.0-37.0); RBC 3.77 10^6/uL (3.5-6.1); RED CELL DISTRIBUTION WIDTH 13.4 % (11.5-14.5); WHITE BLOOD COUNT 5.2 10^3/uL (4.5-11.0)
--- NOTE | 2018-05-04 08:50 | RAD ---
Date of service: 05/04/2018 HISTORY: lt chest tube COMPARISON: 05/03/2018 chest x-ray FINDINGS: LUNGS: The prior moderate to large left pneumothorax has nearly completely re-expanded small residual left superolateral pneumothorax persists. Interval insertion left chest tube its distal core projects over left mid lung zone. Interval increasing confluent opacity in the inferior left rosanne thorax infiltrate consolidation compatible with this. Left lateral pleural thickening and/or loculated left pleural effusion are currently suggested. Right basal increasing consolidation increasing pneumonia and/or atelectasis inferred. The right superior thick pleural parenchymal opacity is renoted. This appearance is similar to the 04/20/2018 study an a October 28 2017 exam. Note is made of a right apical pneumothorax on the May 27 2017 exam. Currently no right apical pneumothorax is seen. Instead diffuse opacity appearing pleural base is perceived. PLEURA: Small residual left pneumothorax as above. Other pleural parenchymal pathologies as detailed above. CARDIOVASCULAR: There is presence of aortic atherosclerotic calcification on x-ray. Cardiomegaly-similar concomitant pulmonary venous congestion mild and slightly increased since prior exam suspect. OSSEOUS STRUCTURES: No significant abnormalities. VISUALIZED UPPER ABDOMEN: Normal. OTHER FINDINGS: None. IMPRESSION: Marked interval decreased size of the prior left pneumothorax. Interval left chest tube insertion. Interval increased bibasilar opacities-progressive atelectasis and/or infiltrates left greater than right inferred. Continued follow-up recommended Other findings as above.
--- NOTE | 2018-05-04 09:22 | CON ---
DATE: 05/04/2018 REASON FOR PULMONARY CONSULTATION: Left pneumothorax. REFERRING PHYSICIAN: For this pulmonary consultation is Dr. Giovanny Elliott. HISTORY OF PRESENT ILLNESS: The patient is a 62-year-old male, with past medical history significant for chronic kidney disease, chronic recurrent bilateral pleural effusions, status post right thoracentesis in the past, chronic anemia, status post liver transplant, who was admitted to the hospital after sustaining a left pneumothorax (status post thoracentesis). I do know this patient well and follow him as an outpatient. On recent chest x-ray, there was a significantly increased left pleural effusion noted. The patient was then sent for outpatient thoracentesis. After the thoracentesis, the patient did experience shortness of breath. Post thoracentesis film revealed a left pneumothorax. A chest tube was placed,and the patient was admitted for additional evaluation. This morning, the patient appears comfortable. He is not short of breath. He does state to a very minimal cough with no sputum production. He denies chest pain, coughing up of blood, or chest pain - brought on with deep respirations. There is no history of temperatures, chills or infectious exposure. There is no history of night sweats, weight loss or appetite change prior to the above events. No history of calf pains. No history of syncope or diaphoresis. No history of recent travel or trauma. REVIEW OF SYSTEMS: No history of nausea, vomiting or diarrhea. No acute urinary symptoms. No new neurologic complaints. Rest of the review of systems is negative. ALLERGIES: ARE TO TACROLIMUS. SOCIAL HISTORY: Positive for former tobacco usage. No alcohol. FAMILY HISTORY: No inheritable diseases. HOME MEDICATIONS: Include Norvasc, CellCept, magnesium oxide, Lasix, folate, ferrous sulfate, cyclosporin and Coreg. PHYSICAL EXAMINATION: GENERAL: The patient appears comfortable this morning. He is not short of breath at rest. He is not using accessory muscles for breathing. VITAL SIGNS: Temperature is 97.7, pulse is 60, respiratory rate 18/20, blood pressure 123/71. Oxygen saturation on nasal cannula is 97%. Oxygen saturation on room air is 95%. HEENT: Normocephalic, atraumatic. No JVD. CARDIOVASCULAR: Positive S1, S2. No S3 gallop. LUNGS: Slight decreased breath sounds - left lung. No rhonchi. No wheezing. EXTREMITIES: Minimal edema. No cyanosis, no clubbing. Calves are nontender to palpation. GI: Abdomen is soft, nontender and nondistended. Bowel sounds are positive. SKIN: No acute rash. Left chest tube in place. NEUROLOGIC: Limited at the present time. PERTINENT LABORATORY DATA: Chest x-ray was done after the thoracentesis yesterday. There was a moderate left-sided pneumothorax noted. CBC: White count 4.0K, hemoglobin 11.4, hematocrit 34.2, platelets of 204,000. Complete metabolic profile: Chloride 108, BUN 67, creatinine 2.7. Rest of the metabolic profiles within normal limits. IMPRESSION: 1. Left pneumothorax, status post thoracentesis. 2. Recurrent pleural effusions. 3. Chronic kidney disease. 4. Chronic anemia. PLAN: I did discuss the case with the night nurse at length. I have also reviewed the chart at length, and discussed the case with the patient at length. The patient presents to [facility] after having sustained a left pneumothorax - status post thoracentesis. As above, the patient does have a history of recurrent bilateral pleural effusions. On recent outpatient chest x-ray, there was a significant increase in the left effusion. The patient was then sent for outpatient thoracentesis. After the thoracentesis, it was noted that the patient had a moderate left-sided pneumothorax. A chest tube was then placed and the patient was thus admitted. This morning, the patient is comfortable. He states to feeling much, much better - compared to yesterday. He is not short of breath. On physical exam, there is no significant bronchospasm. In addition, there is no significant alveolar-arterial gradient. We are awaiting a repeat chest x-ray to be done - ordered. I will check that when feasible. I will also place the patient on incentive spirometry, and have him out of bed. Pleural fluid studies are pending. The patient is certainly clinically improved - compared to yesterday. Additional pulmonary intervention will be based on the above results, as well as the clinical status of the patient. I will discuss the above with both Dr. Whitlock and Dr. Elliott this morning. Thank you very much for this pulmonary consultation. Terry Nick MD [facility]
[2018-05-04] MEDS: Magnesium Oxide 400 mg Tab UD PO SCH ×2 (10:58→11:03)
--- NOTE | 2018-05-04 11:10 | RAD ---
Date of service: 05/03/2018 HISTORY: lt thora COMPARISON: 04/20/2018 TECHNIQUE: Chest PA and lateral FINDINGS: LUNGS: There is a moderate size left pneumothorax following thoracentesis. The edge of the lung is 26 mm from the chest wall in the lower lobe and 21 mm in the upper lobe. The finding was discussed with Dr. Whitlock at 11 a.m. PLEURA: As above CARDIOVASCULAR: No aortic atherosclerotic calcification present. Normal cardiac size. No pulmonary vascular congestion. OSSEOUS STRUCTURES: No significant abnormalities. VISUALIZED UPPER ABDOMEN: Normal. OTHER FINDINGS: None. IMPRESSION: There is a moderate size left pneumothorax following thoracentesis. The edge of the lung is 26 mm from the chest wall in the lower lobe and 21 mm in the upper lobe.
--- NOTE | 2018-05-04 12:39 | PN ---
DATE: 05/04/2018 SUBJECTIVE: He is resting comfortably in bed this morning. He slept well last night. He has got a chest tube in on his left side, he is still draining his blood in the suction collecting area. MEDICATIONS: He is on CellCept, Coreg, Feosol, folic acid, Lasix, magnesium oxide, Norvasc, Pepcid, Percocet, sodium bicarbonate, and Tylenol. PHYSICAL EXAMINATION: GENERAL: He is alert and comfortable, smiling. No complaints. No chest pain. VITAL SIGNS: He has a 97.9 temperature, 63 pulse, 127/70 blood pressure, 20 respiratory rate, and 95% O2 saturation. HEENT: His head is atraumatic and normocephalic. HEART: Regular rate. LUNGS: Decreased breath sounds, but clear actually. No wheezes, rhonchi, or rales. ABDOMEN: Soft, nontender, and positive bowel sounds. EXTREMITIES: No edema. LABORATORY DATA: He has chest x-ray this morning which shows marked interval decreased size of the prior left pneumothorax, interval left chest tube insertion, interval increase bibasilar opacities, progressive atelectasis and infiltrate, left greater than the right. Continue followup. ASSESSMENT AND PLAN: We will see how Cardiology and Pulmonology will handle this. I think he chest tube follow. I will discuss with Pulmonology on possibly needing antibiotics, but it is pneumonia, but he is clinically stable in bed with the chest tube. I will see him for pneumothorax. Giovanny Elliott DO [facility]
[2018-05-04] MEDS: Oxycodone/Acetaminophen 5/325 mg Tab PO PRN ×2 (13:41→21:30)
[2018-05-05 06:36] LABS: HEMOGLOBIN 10.3 g/dL (14.0-18.0); MEAN CELL VOLUME 84.4 fl (80.0-105.0); MEAN CORPUSCULAR HEMOGLOBIN 28.1 pg (25.0-35.0); MEAN CORPUSCULAR HGB CONC 33.3 g/dl (31.0-37.0); MEAN PLATELET VOLUME 8.8 fl (7.0-11.0); RBC 3.66 10^6/uL (3.5-6.1); RED CELL DISTRIBUTION WIDTH 13.2 % (11.5-14.5); WHITE BLOOD COUNT 4.9 10^3/uL (4.5-11.0)
[2018-05-05 07:07] LABS: ALB/GLOB RATIO 1.2 (1.1-1.8); ALBUMIN 3.4 g/dL (3.0-4.8); CALCIUM 8.5 mg/dL (8.4-10.5)
--- NOTE | 2018-05-05 08:33 | PN ---
DATE: 05/05/2018 PULMONARY NOTE SUBJECTIVE: The patient appears very comfortable this morning. He is not short of breath at rest. OBJECTIVE: VITAL SIGNS: (Last noted in the computer): Temperature is 98.6, pulse 61, respirations 18/20, blood pressure 122/72. Oxygen saturation on room air is 97%. HEENT: Normocephalic, atraumatic. No JVD. CARDIOVASCULAR: Positive S1, S2. No S3 gallop. LUNGS: Crackles - left base. No rhonchi. No wheezing. EXTREMITIES: Mild edema. No cyanosis, no clubbing. Calves are nontender to palpation. GI: Abdomen is soft, nontender and nondistended. Bowel sounds are positive. SKIN: No acute rash. Left chest tube in place. NEUROLOGIC: Limited at the present time. PERTINENT LABORATORY DATA: Chest x-rays were done yesterday and today are reviewed. On yesterday's film, there is a dense left perihilar/left lower lobe infiltrate/atelectasis seen. Repeat chest x-ray was also done today. There is a definite decrease in the denseness of the infiltrates/atelectasis noted at the left lower lobe with increased aeration--overall improved. Official results are pending. IMPRESSION: 1. Left pneumothorax, status post thoracentesis. 2. Recurrent pleural effusions. 3. Chronic kidney disease. 4. Chronic anemia. PLAN: The patient appears very comfortable this morning. He is not short of breath at rest. He states "I feel great." I did discuss the case with night nurse at length. The night nurse stated the patient had a good night. I did review the last 2 chest x-rays. Findings are noted above. Most likely, the above "infiltrates" represent resolving atelectasis (compression) secondary to the large left pleural effusion. On physical exam, there is no significant bronchospasm noted. In addition, the oxygen saturation on room air is now 97%. I will continue with the patient out of bed and using his incentive spirometer frequently. I would continue with the chest tube management as per Dr. Whitlock. I will discuss the case with Dr. Whitlock later today. Pleural fluid results are pending. Clinical status of the patient appears significantly improved overall. Again, the patient will be out of bed as much as possible. I will discuss the above with Dr. Elliott. Terry Nick MD [facility] # [id number] [place]
--- NOTE | 2018-05-05 08:56 | RAD ---
Date of service: 05/05/2018 PROCEDURE: CHEST RADIOGRAPH, 1 VIEW HISTORY: check pneumothorax COMPARISON: 05/04/2018 FINDINGS: LUNGS: Left-sided chest tube. No pneumothorax. No change in left lower lobe infiltrate. Fluid in the right major fissure unchanged PLEURA: As above CARDIOVASCULAR: No aortic atherosclerotic calcification present. Moderate cardiomegaly OSSEOUS STRUCTURES: No significant abnormalities. VISUALIZED UPPER ABDOMEN: Normal. OTHER FINDINGS: None. IMPRESSION: Left-sided chest tube. No pneumothorax. No change in left lower lobe infiltrate. Fluid in the right major fissure unchanged
[2018-05-05] MEDS: Magnesium Oxide 400 mg Tab UD PO SCH ×2 (10:58→11:13)
--- NOTE | 2018-05-05 11:40 | PN ---
DATE: 05/05/2018 SUBJECTIVE: I saw Kelechi resting comfortably in bed. He still has a left-sided chest tube in place. It is draining a lot of bloody drainage. He says he feels well. No chest pain or shortness of breath. No abdominal pain. He is comfortable. He slept well. PHYSICAL EXAMINATION: VITAL SIGNS: Temperature 98, 71 pulse, 127/65 blood pressure, 20 respiratory rate, 98% O2 sat on room air. HEENT: Head is atraumatic, normocephalic. Throat is moist. NECK: Supple. HEART: Regular rate. LUNGS: Decreased breath sounds bilaterally, the left lung is more decreased than the right. ABDOMEN: Soft. EXTREMITIES: No edema, but he is comfortable. No chest pain, shortness breath or abdominal pain. MEDICATIONS: He is on CellCept, Coreg, Feosol, folic acid, Lasix, magnesium oxide, Norvasc, Pepcid, Percocet, Sandimmune, sodium bicarb and Tylenol. LABORATORY DATA: He has a 136 sodium, potassium 4.2, BUN 67, creatinine 2.5, GFR is 26, sugar 78, calcium is 8.5, total bili is 0.6, AST is 60, ALT is 46, alk phos 237, total protein 6.3. INR is 1.21. White count 4.9, hemoglobin 10.3, hematocrit 30.9, platelets of 191. PLAN: He is being seen by Pulmonary. There is a chest x-ray this morning also. There is a left pneumothorax, status post thoracentesis, right pleural effusion. He has left-sided chest tube. No pneumothorax. No change. Left lower lobe infiltrate . The pneumothorax has improved, but he does have a pneumonia, so we will leave it up to Pulmonary as to what to do now. Hopefully take out the chest tube and then treat him for the pneumonia and the left lower lobe infiltrate. Giovanny Elliott DO [facility]
[2018-05-05] MEDS: Oxycodone/Acetaminophen 5/325 mg Tab PO PRN (11:49)
--- NOTE | 2018-05-05 12:15 | CP.PCM.PCO ---
Physician Communication Note - Physician Communication Note Physician Communication Note: Pt.w.left chest tube, removed by mitchel Zendejas.MA home tommorow
--- NOTE | 2018-05-05 12:58 | RAD ---
Date of service: 05/05/2018 HISTORY: S/P Chest tube removal COMPARISON: 05/05/2018 6:25 a.m. FINDINGS: LUNGS: Left-sided chest tube has been removed. There is no pneumothorax. No change in the left-sided infiltrate PLEURA: No change in right-sided effusion CARDIOVASCULAR: No aortic atherosclerotic calcification present. Mild cardiomegaly no pulmonary vascular congestion. OSSEOUS STRUCTURES: No significant abnormalities. VISUALIZED UPPER ABDOMEN: Normal. OTHER FINDINGS: None. IMPRESSION: Left-sided chest tube has been removed. There is no pneumothorax. No change in the left-sided infiltrate
[2018-05-06 07:15] VITALS: BP 140/78; PULSE 77; RESP 16; TEMP 98.4; O2SAT 97
--- NOTE | 2018-05-06 07:38 | PN ---
DATE: 05/06/2018 SUBJECTIVE: The patient appears very comfortable this morning. He is not short of breath at rest. OBJECTIVE: VITAL SIGNS (LAST NOTED IN THE COMPUTER): Temperature is 98.1, pulse 63, respirations 19, blood pressure 129/71. Oxygen saturation on room air is 99%. HEENT: Normocephalic, atraumatic. NECK: No JVD. CARDIOVASCULAR: Positive S1, S2. No S3 gallop. LUNGS: Less crackles - left base. No rhonchi. No wheezing. EXTREMITIES: Mild edema. No cyanosis, no clubbing. Calves are nontender to palpation. GASTROINTESTINAL: Abdomen is soft, nontender and nondistended. Bowel sounds are positive. SKIN: No acute rash. Left chest tube has been removed. NEUROLOGIC: Limited at the present time. PERTINENT LABORATORY DATA: Chest x-ray was done this morning and reviewed. The chest x-ray continues to improve-- with decreased "infiltrate," as well as increased aeration noted in the left lower lobe. Official results are pending. IMPRESSION: 1. Left pneumothorax, status post thoracentesis. 2. Recurrent pleural effusions. 3. Chronic kidney disease. 4. Chronic anemia. PLAN: The patient appears very comfortable this morning. He is not short of breath at rest, and states "I feel great." I did discuss the case with the night nurse at length. The night nurse stated the patient had a very good night. I did review the chest x-ray from this morning. There is continued decrease in the" infiltrate," along with increased aeration noted to the left lower lobe. Again, these "infiltrates" most likely represent resolving atelectasis. On physical exam, there is no significant bronchospasm noted. In addition, the oxygen saturation on room air is 99%. I will continue with the patient out of bed, and using his incentive spirometer frequently. Clinical status of the patient is significantly improved - compared to his initial presentation. However, given the above, the future status/prognosis for this patient does remain somewhat guarded. The patient is for discharge in the near future. I will discuss the above with Dr. Elliott. Terry Nick MD [facility] # [id number] [place]
[2018-05-06] MEDS: Magnesium Oxide 400 mg Tab UD PO SCH ×2 (09:09→09:12)
--- NOTE | 2018-05-06 09:21 | PQF ---
PROVIDER RESPONSE TEXT: Ckd 3 REVIEWER QUERY TEXT: Kidney Disease, Chronic CKD Stage Chronic Kidney Disease (CKD) is documented in the Medical Record. Please specify the disease stage ( includes probable or suspected) Such as: -- Chronic kidney disease Stage 1 -- Chronic kidney disease Stage 2 -- Chronic kidney disease Stage 3 -- Chronic kidney disease Stage 4 -- Chronic kidney disease Stage 5 -- Chronic kidney disease Stage 5, requiring dialysis -- End Stage Renal Disease -- Other, please specify Stages are defined by the [employer] as follows: CKD Stage I GFR >= 90 ml / min per 1.73 m2 and persistent albuminuria CKD Stage 2 GFR between 60 and 89 with persistent albuminuria CKD Stage 3 GFR between 30 and 59 CKD Stage 4 GFR between 15 and 29 CKD Stage 5 GFR between <15 or End Stage Renal Disease The patient's Clinical Indicators include: Several mentions of hx CKD appear in the medical record. BUN 67, creatinine 2.7 on admission without substantial improvement. Please specify the stage of the CKD present in this patient. Query created by: Sayra Franco on 05/05/2018 11:22 AM Electronically signed by: Giovanny Elliott DO 05/06/2018 9:18 AM
--- NOTE | 2018-05-06 10:21 | DS ---
HISTORY OF PRESENT ILLNESS: He has a history of having a thoracentesis and then he had a pneumothorax and chest tube and now chest tube is out and to be discharged. He is going to go home on his regular medications. He is feeling well in bed. No chest pain or shortness of breath. No abdominal pain. He is walking around. OBJECTIVE: VITAL SIGNS: Temperature 98.4, 77 pulse, 140/78 blood pressure, 16 respiratory rate, 97% O2 sat. HEENT: Head is atraumatic, normocephalic. HEART: Regular rate. LUNGS: Decreased breath sounds, but clear. No wheezes or rhonchi. ABDOMEN: Soft. EXTREMITIES: No edema. LABORATORY DATA: He has a 136 sodium, potassium 4.2, BUN 67, creatinine 2.5. GFR 32, sugar is 78, calcium is 8.5, total bili is 0.6, AST is 60, ALT is 46, alk phos 237, total protein 6.3. He has got a white count of 4.9, hemoglobin 10.3, hematocrit 30.9, platelets 191. IMPRESSION AND PLAN: He is being seen by Pulmonary, Dr. Jose Martin Whitlock and he is here for pneumothorax status post thoracentesis, chest tube and now he is going to be discharged. I will see him in the office. Giovanny Elliott DO [facility]
--- NOTE | 2018-05-06 10:39 | RAD ---
Date of service: 05/06/2018 PROCEDURE: CHEST RADIOGRAPH, 1 VIEW HISTORY: pneumothorax COMPARISON: 05/05/2018 FINDINGS: LUNGS: There is an infiltrate in the left lower lobe showing slight improvement. PLEURA: There is a small amount of fluid in the right major fissure. This is unchanged CARDIOVASCULAR: No aortic atherosclerotic calcification present. Mild to moderate cardiomegaly OSSEOUS STRUCTURES: No significant abnormalities. VISUALIZED UPPER ABDOMEN: Normal. OTHER FINDINGS: None. IMPRESSION: Left lower lobe infiltrate showing slight improvement. Small amount of fluid in the right major fissure unchanged
== END 2018-05-06 10:43 | disposition home or self-care (01) | DRG 200 ==
LOC: SDS 11:20 → OPSURG 11:20 → 3RNO 20:02
PROVIDERS: ADMIT Family Medicine; ATTEND Family Medicine
PROC: 0W9B30Z Drainage of Left Pleural Cavity with Drainage Device, Percutaneous Approach (ICD-10-PCS; principal; 2018-05-03 13:30)
DX: J95.811 Postprocedural pneumothorax (principal); Z94.4 Liver transplant status; J90 Pleural effusion, not elsewhere classified; J98.11 Atelectasis; K74.60 Unspecified cirrhosis of liver; I12.9 Hypertensive chronic kidney disease with stage 1 through stage 4 chronic kidney disease, or unspecified chronic kidney disease; N18.3 Chronic kidney disease, stage 3 (moderate); D64.9 Anemia, unspecified; Y83.9 Surgical procedure, unspecified as the cause of abnormal reaction of the patient, or of later complication, without mention of misadventure at the time of the procedure; Z87.891 Personal history of nicotine dependence; Z79.899 Other long term (current) drug therapy

== ENCOUNTER 2018-08-29 14:00 | Outpatient (CLI) | payer MEDICARE, BC | END 2018-08-29 14:01 | disposition home or self-care (01) | LOC: RAD 14:00 ==